=== PATIENT | female | born 2000 | race African-American/Black ===

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

== ENCOUNTER → 2020-01-21 | Outpatient (CLI) | payer MEDICAID ==
--- NOTE | 2020-01-21 12:32 | Diagnostic Imaging Report ---
INDICATION: Palpable lump right breast. Sonographic interrogation of the area of palpable lump right breast was performed. This corresponds to the 11:00 location. No sonographic abnormality is seen. No solid or cystic mass is detected. IMPRESSION: BI-RADS Category 1 No sonographic abnormality is detected. Continued close clinical and self breast exam is recommended to confirm stability of the palpable abnormality. ACR BI-RADS Category 1: Negative. Result letter will be mailed to the patient. Note: At least 10% of breast cancer is not imaged by mammography. Dictated by: Dictated on workstation # [id number]
== END ==
LOC: RAD 10:30
PROVIDERS: ATTEND Family Medicine
DX: N63.10 Unspecified lump in the right breast, unspecified quadrant (principal)
CPT/HCPCS: 76641

== ENCOUNTER 2020-05-22 21:21 | Emergency (ER) | payer MEDICAID ==
[~2020-05-22] VITALS: Ht 152 cm; Wt 41.7 kg
[2020-05-22] MEDS ORDERED: ONDANSETRON 4 MG/2 ML (SDV) Z0FRAN IVP ONE (21:45)
[2020-05-22] MEDS ORDERED: KETOROLAC 30 MG/ML VIAL IVP ONE (21:45)
[2020-05-22] MEDS ORDERED: NS IV 500 ML 500 ML IV ONE (21:45)
--- NOTE | 2020-05-22 21:45 | ED GU-Female ---
General Stated Complaint: MENSTRUAL CRAMPS Source: patient Exam Limitations: no limitations History of Present Illness Date Seen by Provider: May 22, 2020 Time Seen by Provider: 21:30 Initial Comments Patient and her mother are present to the ER by private conveyance from home with chief complaint of intractable pain for the past several years in her right lower quadrant abdomen associated with her period and cysts. She think she has another cyst. She had a surgery by Dr. Garcia to have a cyst removed. She is having some nausea and rates her pain is 11 out of 10. No fevers dysuria diarrhea or constipation. She had a bowel movement today which was normal. She uses Tylenol ibuprofen and heat without relief of her pain. She went to urgent care today and had a urinalysis done which was unremarkable. No mention of endometriosis. She also has noticed increased bruising across to her body that spontaneous. She has a history of factor V Leiden and her last period was 4 days ago started out as spotting and that she had very heavy bleeding with blood clots for about 2 days and then it was over. She is very regular with her menses. She is out of her nausea medicine. She has had an umbilical hernia repair, ovarian cyst on the right side and cholecystectomy. Allergies and Home Medications Allergies Coded Allergies: No Known Drug Allergies (Unverified , 06/12/18) Home Medications Hydrocodone/Acetaminophen 1 Each Tablet, 1 TAB PO Q4H PRN for PAIN-MODERATE (5- 7) Prescribed by: KEVIN GARCIA on 07/26/19 0935 Ibuprofen 600 Mg Tablet, 600 MG PO Q6H Prescribed by: KEVIN GARCIA on 07/26/19 0935 Ondansetron 4 Mg Tab.rapdis, 4 MG PO TID PRN for NAUSEA-1ST LINE Prescribed by: QUINCY CONLEY on 07/26/19 1304 Patient Home Medication List Home Medication List Reviewed: Yes Review of Systems Review of Systems Constitutional: No chills, No fever EENTM: No ear discharge, No ear pain Respiratory: No cough, No short of breath Cardiovascular: No chest pain, No edema Gastrointestinal: RLQ, abdominal pain; No constipation, No diarrhea; nausea; No vomiting Musculoskeletal: No back pain, No joint pain All Other Systemes Reviewed Negative Unless Noted: Yes Past Qchzkol-Gtutkk-Hrglhc Hx Patient Social History Alcohol Use: Denies Use Smoking Status: Former Smoker Type Used: Electronic/Vapor 2nd Hand Smoke Exposure: No Recent Hopitalizations: No Immunizations Up To Date Tetanus Booster (TDap): Less than 5yrs PED Vaccines UTD: No Date of Influenza Vaccine: Nov 10, 2017 Seasonal Allergies Seasonal Allergies: Yes Past Medical History Surgeries: Yes (Umbilical hernia repair. ) Adenoidectomy, Gallbladder, Tonsillectomy Respiratory: Yes Asthma Currently Using CPAP: No Currently Using BIPAP: No Cardiac: No Neurological: No Reproductive Disorders: No Female Reproductive Disorders: Denies Sexually Transmitted Disease: No HIV/AIDS: No Genitourinary: No Gastrointestinal: No Abdominal Hernia, Gall Bladder Disease Musculoskeletal: No Endocrine: No HEENT: No Cancer: No Psychosocial: Yes Anxiety, PTSD, Bipolar, Depression Integumentary: No 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) Adverse Reaction/Blood Tranf: No Family Medical History BIPOLAR 19 FATHER Diabetes mellitus 19 FATHER FH: factor V Leiden mutation M GRANDMOTHER FH: heart disease GRANDPARENT FH: hyperlipidemia 19 MOTHER GRANDPARENT Factor V deficiency 19 MOTHER G8 BROTHER G8 BROTHER G8 BROTHER G8 SISTER G8 SISTER Hypertension 19 FATHER GRANDPARENT IBS 19 FATHER Seizure disorder 19 FATHER Tuberculosis 19 FATHER Physical Exam Vital Signs Capillary Refill : Height, Weight, BMI Height: 5'0" Weight: 105lbs. 0.0oz. 47.348303fe; 20.00 BMI Method:Stated General Appearance: WD/WN, mild distress HEENT: PERRL/EOMI, pharynx normal Neck: full range of motion, normal inspection Cardiovascular: normal peripheral pulses, regular rate, rhythm Respiratory: no respiratory distress, no accessory muscle use Gastrointestinal: normal bowel sounds, soft, no organomegaly, tenderness (Right lower quadrant mild tenderness without Rovsing sign, mesenteric signs or rebound tenderness over McBurney's point) Extremities: non-tender, normal inspection Neurologic/Psychiatric: alert, normal mood/affect, oriented x 3 Progress/Results/Core Measures Suspected Sepsis SIRS Temperature: Pulse: Respiratory Rate: Laboratory Tests 05/22/20 21:49: White Blood Count 8.4 Blood Pressure / Mean: Laboratory Tests 05/22/20 21:49: Creatinine 0.78, Platelet Count 302, Total Bilirubin 0.3 Results/Orders Lab Results Laboratory Tests Test 05/22/20 21:41 4/12/21 21:49 Range/Units Urine Color YELLOW Urine Clarity SL CLOUDY Urine pH 6.5 5-9 Urine Specific [place] 1.020 1.016-1.022 Urine Protein NEGATIVE NEGATIVE Urine Glucose (UA) NEGATIVE NEGATIVE Urine Ketones NEGATIVE NEGATIVE Urine Nitrite NEGATIVE NEGATIVE Urine Bilirubin NEGATIVE NEGATIVE Urine Urobilinogen 0.2 < = 1.0 MG/DL Urine Leukocyte Esterase NEGATIVE NEGATIVE Urine RBC (Auto) 2+ H NEGATIVE Urine RBC RARE /HPF Urine WBC RARE /HPF Urine Squamous Epithelial Cells 10-25 H /HPF Urine Crystals NONE /LPF Urine Bacteria FEW H /HPF Urine Casts NONE /LPF Urine Mucus NEGATIVE /LPF Urine Culture Indicated NO White Blood Count 8.4 4.3-11.0 10^3/uL Red Blood Count 4.23 3.80-5.11 10^6/uL Hemoglobin 12.0 11.5-16.0 g/dL Hematocrit 37 35-52 % Mean Corpuscular Volume 86 80-99 fL Mean Corpuscular Hemoglobin 28 25-34 pg Mean Corpuscular Hemoglobin Concent 33 32-36 g/dL Red Cell Distribution Width 14.8 H 10.0-14.5 % Platelet Count 302 130-400 10^3/uL Mean Platelet Volume 8.7 L 9.0-12.2 fL Immature Granulocyte % (Auto) 0 % Neutrophils (%) (Auto) 59 42-75 % Lymphocytes (%) (Auto) 30 12-44 % Monocytes (%) (Auto) 9 0-12 % Eosinophils (%) (Auto) 1 0-10 % Basophils (%) (Auto) 1 0-10 % Neutrophils # (Auto) 5.0 1.8-7.8 10^3/uL Lymphocytes # (Auto) 2.5 1.0-4.0 10^3/uL Monocytes # (Auto) 0.8 0.0-1.0 10^3/uL Eosinophils # (Auto) 0.1 0.0-0.3 10^3/uL Basophils # (Auto) 0.0 0.0-0.1 10^3/uL Immature Granulocyte # (Auto) 0.0 0.0-0.1 10^3/uL Sodium Level 140 135-145 MMOL/L Potassium Level 3.9 3.6-5.0 MMOL/L Chloride Level 106 98-107 MMOL/L Carbon Dioxide Level 22 21-32 MMOL/L Anion Gap 12 5-14 MMOL/L Blood Urea Nitrogen 11 7-18 MG/DL Creatinine 0.78 0.60-1.30 MG/DL Estimat Glomerular Filtration Rate > 60 BUN/Creatinine Ratio 14 Glucose Level 79 70-105 MG/DL Calcium Level 8.8 8.5-10.1 MG/DL Corrected Calcium 8.7 8.5-10.1 MG/DL Total Bilirubin 0.3 0.1-1.0 MG/DL Aspartate Amino Transf (AST/SGOT) 14 5-34 U/L Alanine Aminotransferase (ALT/SGPT) 12 0-55 U/L Alkaline Phosphatase 62 40-136 U/L C-Reactive Protein High Sensitivity 0.03 0.00-0.50 MG/DL Total Protein 6.7 6.4-8.2 GM/DL Albumin 4.1 3.2-4.5 GM/DL My Orders Orders - KYM LAWRENCE Ua Culture If Indicated (05/22/20 21:40) Urine Bedside (05/22/20 21:40) Cbc With Automated Diff (05/22/20 21:40) Comprehensive Metabolic Panel (05/22/20 21:40) Hs C Reactive Protein (05/22/20 21:40) Ketorolac Injection (Toradol Injection) (05/22/20 21:45) Ondansetron Injection (Zofran Injectio (05/22/20 21:45) Ed Iv/Invasive Line Start (05/22/20 21:40) Ns Iv 500 Ml (Sodium Chloride 0.9%) (05/22/20 21:45) Rx-Hydrocodone/Apap 5-325 Mg (Rx-Vicodin (05/22/20 23:30) Medications Given in ED Current Medications Medications Dose Ordered Sig/Arya Route Start Time Stop Time Status Last Admin Dose Admin Ketorolac Tromethamine 30 mg ONCE ONCE IVP 05/22/20 21:45 05/22/20 21:46 DC 05/22/20 21:54 30 MG Ondansetron HCl 8 mg ONCE ONCE IVP 05/22/20 21:45 05/22/20 21:46 DC 05/22/20 21:54 8 MG Sodium Chloride 500 ml @ 0 mls/hr Q0M ONCE IV 05/22/20 21:45 4/12/21 21:46 DC 05/22/20 21:54 1,000 MLS/HR Vital Signs/I&O Capillary Refill : Progress Note #1: Time: 21:45 Progress Note Toradol, Zofran, fluids and will get some urine, blood and CRP. We will reexamine her after. Progress Note #2: Time: 23:17 Progress Note The patient's nausea is better however she says her pain is still 11 out of 10. We have instructed her this is most likely gynecologic her labs are normal. We discussed imaging and she declined. We will provide her with some hydrocodone and instructions to call Dr. Garcia tomorrow to further discuss this. If she is not finding an answer to her pain and we have suggested she should talk to her primary care doctor about pain processing disorder such as fibromyalgia etc. Departure Impression Primary Impression: Right lower quadrant abdominal pain Disposition: 01 HOME, SELF-CARE Condition: Stable Departure-Patient Inst. Decision time for Depature: 23:21 Referrals: KEVIN GARCIA CHAD C MD (PCP/Family) Primary Care Physician Patient Instructions: Pelvic Pain (DC) Add. Discharge Instructions: I suspect you are probably having pain from your ovarian cysts. Hydrocodone 1 tablet every 6 hours as necessary for severe pain. Ibuprofen 800 mg every 8 hours as necessary for pain. Tylenol 600 mg or 8 hours as necessary for pain. Ondansetron every 6 hours as necessary for nausea and/or vomiting. Follow Dr. Garcia by calling for an appointment in the morning. Scripts Ondansetron (Ondansetron Odt) 4 Mg Tab.rapdis 4 MG PO Q6H PRN for NAUSEA/VOMITING, #8 TAB 0 Refills Prov: KYM LAWRENCE 05/22/20 Hydrocodone/Acetaminophen (Hydrocodone-Acetamin 5-325 mg) 1 Each Tablet 1 TAB PO Q4H PRN for PAIN-MODERATE (5-7), #10 TAB 0 Refills Prov: KYM LAWRENCE 05/22/20 Copy Copies To 1: KEVIN GARCIA TITUS J May 22, 2020 21:45
[2020-05-22 21:49] LABS: BILIRUBIN,URINE NEGATIVE (NEGATIVE); CLARITY,URINE SL CLOUDY; COLOR,URINE YELLOW; GLUCOSE, URINE (UA) NEGATIVE (NEGATIVE); KETONES,URINE NEGATIVE (NEGATIVE); LEUKOCYTE ESTERASE ,URINE NEGATIVE (NEGATIVE); NITRITE,URINE NEGATIVE (NEGATIVE); PH,URINE 6.5 (5-9); PROTEIN,URINE NEGATIVE (NEGATIVE)
[2020-05-22 21:55] LABS: BASOPHILS % (AUTO) 1 % (0-10); EOSINOPHILS # (AUTO) 0.1 10^3/uL (0.0-0.3); EOSINOPHILS % (AUTO) 1 % (0-10); HEMATOCRIT 37 % (35-52); LYMPHOCYTES # (AUTO) 2.5 10^3/uL (1.0-4.0); LYMPHOCYTES % (AUTO) 30 % (12-44); MEAN CORPUSCULAR HEMOGLOBIN 28 pg (25-34); MEAN CORPUSCULAR HGB CONC 33 g/dL (32-36); MEAN CORPUSCULAR VOLUME 86 fL (80-99); MEAN PLATELET VOLUME 8.7 fL (9.0-12.2); MONOCYTES # (AUTO) 0.8 10^3/uL (0.0-1.0); MONOCYTES % (AUTO) 9 % (0-12); NEUTROPHILS % (AUTO) 59 % (42-75); PLATELET COUNT 302 10^3/uL (130-400); WHITE BLOOD COUNT 8.4 10^3/uL (4.3-11.0)
[2020-05-22 21:56] LABS: BACTERIA,URINE FEW /HPF; RBC,URINE RARE /HPF; WBC,URINE RARE /HPF
[2020-05-22 22:06] LABS: ALBUMIN 4.1 GM/DL (3.2-4.5)
[2020-05-22 22:07] LABS: CHLORIDE 106 MMOL/L (98-107); POTASSIUM 3.9 MMOL/L (3.6-5.0); SODIUM 140 MMOL/L (135-145)
[2020-05-22 22:08] LABS: CALCIUM 8.8 MG/DL (8.5-10.1)
[2020-05-22 22:09] LABS: GLUCOSE 79 MG/DL (70-105); TOTAL PROTEIN 6.7 GM/DL (6.4-8.2)
[2020-05-22 22:10] LABS: CARBON DIOXIDE 22 MMOL/L (21-32)
[2020-05-22 22:11] LABS: BILIRUBIN,TOTAL 0.3 MG/DL (0.1-1.0)
[2020-05-22 22:12] LABS: ALKALINE PHOSPHATASE 62 U/L (40-136)
[2020-05-22 22:13] LABS: CREATININE SERUM 0.78 MG/DL (0.60-1.30); GFR ESTIMATED > 60
[2020-05-22 22:14] LABS: BUN/CREATININE RATIO 14
[2020-05-22 22:16] LABS: ALANINE AMINOTRANSFERASE 12 U/L (0-55)
[2020-05-22] MEDS ORDERED: RX-HYDROCODONE/APAP 5/325 MG #4 TAB PK PO ONE (23:11)
[2020-05-22] MEDS ORDERED: ACHD5005 PO (23:20)
[2020-05-22] MEDS ORDERED: ONDA4TAB11 PO (23:20)
[2020-05-22 23:25] VITALS: BP 110/80
[2020-05-22] MEDS ORDERED: RX-HYDROCODONE/APAP 5/325 MG #4 TAB PK PO PRN (23:30)
== END 2020-05-22 23:25 | disposition home or self-care (01) ==
LOC: EDUNIT# 21:21 → ER 21:24
DX: R10.31 Right lower quadrant pain (principal); Z87.891 Personal history of nicotine dependence; Z83.3 Family history of diabetes mellitus; Z82.49 Family history of ischemic heart disease and other diseases of the circulatory system
CPT/HCPCS: 36415; 80053; 81000; 84703; 85025; 86141; 96361; 96374; 96375

== ENCOUNTER → 2020-06-08 | Outpatient (CLI) | payer MEDICAID ==
--- NOTE | 2020-06-08 15:46 | Diagnostic Imaging Report ---
PROCEDURE: US non-OB pelvis comp/trans. INDICATION: Pelvic and perineal pain. TECHNIQUE: Multiple real time grayscale sonographic images were obtained of the pelvis 01/26/2019. CORRELATION STUDY: None. FINDINGS: UTERUS: 8.2 x 4.2 x 5.6 cm. The uterus appears unremarkable. ENDOMETRIUM: Approximately 8-12 mm. The endometrium appearing unremarkable. RIGHT OVARY: 3.2 x 1.8 x 3.4 cm Complex perhaps resolving hemorrhagic cyst of the right ovary is demonstrated, 1.1 x 1.3 x 0.9 cm. There is presence of blood flow to the right ovary. LEFT OVARY: 3.1 x 1.3 x 2.4 cm The left ovary has an unremarkable appearance. No concerning mass. Blood flow is present. Small amount of pelvic fluid. IMPRESSION: Complex right ovarian mass. May very well reflect resolving hemorrhagic cyst. Small amount of pelvic fluid, within physiologic range. Otherwise, unremarkable appearing pelvic ultrasound evaluation. Dictated by: Dictated on workstation # [id number]
== END ==
LOC: RAD 11:41
PROVIDERS: ATTEND Obstetrics & Gynecology
DX: N83.8 Other noninflammatory disorders of ovary, fallopian tube and broad ligament (principal)
CPT/HCPCS: 76830; 76856

== ENCOUNTER 2020-06-09 00:10 | Emergency (ER) | payer MEDICAID ==
[~2020-06-09] VITALS: Ht 152.4 cm; Wt 40.0 kg
[2020-06-09 00:54] LABS: BILIRUBIN,URINE NEGATIVE (NEGATIVE); CLARITY,URINE CLEAR; COLOR,URINE YELLOW; GLUCOSE, URINE (UA) NEGATIVE (NEGATIVE); KETONES,URINE NEGATIVE (NEGATIVE); LEUKOCYTE ESTERASE ,URINE NEGATIVE (NEGATIVE); NITRITE,URINE NEGATIVE (NEGATIVE); PROTEIN,URINE NEGATIVE (NEGATIVE)
[2020-06-09 01:29] LABS: BACTERIA,URINE NEGATIVE /HPF
[2020-06-09 01:48] LABS: AMPHETAMINE SCREEN, URINE NEGATIVE (NEGATIVE); BARBITURATE SCREEN URINE NEGATIVE (NEGATIVE); BENZODIAZEPINES SCREEN URINE NEGATIVE (NEGATIVE); CANNABINOID SCREEN, URINE POSITIVE (NEGATIVE); COCAINE SCREEN URINE NEGATIVE (NEGATIVE); METHADONE STAT NEGATIVE (NEGATIVE); METHAMPHETAMINE SCREEN URINE S NEGATIVE (NEGATIVE); OPIATE SCREEN URINE NEGATIVE (NEGATIVE); OXYCODONE STAT NEGATIVE (NEGATIVE); PROPOXYPHENE STAT NEGATIVE (NEGATIVE); TRICYCLIC ANTIDEPRESSANTS SCRE NEGATIVE (NEGATIVE)
--- NOTE | 2020-06-09 01:57 | ED Abdominal Pain ---
General Chief Complaint: Abdominal/GI Problems Stated Complaint: LOWER RT SIDE & BELLY BUTTON PAIN Nursing Triage Note: PRESENTS TO ROOM #5 VIA POV ACCOMPANIED BY MOTHER WITH C/O "HARD KNOT" ET PAIN TO BELLY BUTTON. STATES SHE NOTICED "HARD KNOT" TO BELLY BUTTON [employer]. STATES ON 06/08/20 SHE HAD AN OUTPATIENT ULTRASOUND OF HER R LOWER QUADRANT D/T X1 MONTH OF DICOMFORT. WHEN ASKED IF SHE IS EXPERIENCING NAUSEA PT STATES SHE HAS BEEN EXPERIENCING CONSTANT NAUSEA X1 MONTH. DENIES VOMITING OR DIARRHEA. STATES AT 2330 SHE TOOK 7.5/325MG PERCOCET. Sepsis Screen: No Definite Risk Source of Information: Patient History of Present Illness Date Seen by Provider: Jun 09, 2020 Time Seen by Provider: 00:30 Initial Comments PT ARRIVES VIA POV FROM HOME WITH MOTHER PT STATES IMMEDIATELY PRIOR TO ARRIVAL, SHE NOTICED A "KNOT" IN HER BELLY BUTTON THAT IS VERY PAINFUL. HAS NO IDEA HOW LONG THE "KNOT" HAS BEEN THERE--STATES "I JUST KNOW I'M IN PAIN" INITIALLY STATED SHE DID NOT TAKE ANYTHING FOR PAIN, THEN STATES SHE TOOK A PERCOCET 7.5/325 AT 2330 TONIGHT--STATES "SHE FORGOT SHE TOOK IT" --CLAIMS IT DIDN'T HELP PT HAD NORMAL BM THIS AM--NO BLACK/BLOODY/TARRY STOOLS NO VOMITING PT ATE TACOS AND CEREAL JUST PRIOR TO ARRIVAL. NO URINARY SYMPTOMS AND VOIDING A NORMAL AMOUNT NO FEVER/SWEATS/CHILLS LMP 05/19/20--NORMAL TIME, BUT VERY LIGHT ( PER OLD CHART, SHE HAD REPORTED AT THAT TIME THAT IT WAS VERY HEAVY BLEEDING WITH BLOOD CLOTS X 2 DAYS) NO CONTROL PT HAD CHOLECYSTECTOMY AND UMBILICAL HERNIA REPAIR 2 YEARS AGO SHE HAS ALSO HAD RIGHT OVARIAN CYST REMOVED IN THE PAST PT HAS CHRONIC RLQ PAIN FOR YEARS, AND STATES IT HAS BEEN GOING ON FOR A MONTH ALSO HAS BEEN HAVING NAUSEA FOR THE LAST MONTH PT HAS HAD MULTIPLE WORK UP'S AND SEEN MULTIPLE PROVIDERS FOR THIS PROBLEM, AND HAS BEEN DX WITH OVARIAN CYSTS IN THE PAST THESE SYMPTOMS TEND TO CORRELATE WITH MENSTRUAL CYCLES THOSE SYMPTOMS ARE NO DIFFERENT TONIGHT AND ARE NOT HER MAIN COMPLAINT TONIGHT PT WAS SEEN HERE 05/22/20 FOR RLQ PAIN AND NAUSEA, PT HAD LAB AT THAT TIME, WHICH WAS UNREMARKABLE, AND SHE DECLINED ANY IMAGING AT THAT TIME. PT WAS GIVEN RX'S FOR ZOFRAN AND HYDROCODONE AT THAT TIME PT HAS SEEN DR. GARCIA SINCE THAT VISIT, AND HAD OUTPATIENT ULTRASOUND AND LAB DONE TODAY--RESULTS ARE UNKNOWN TO PT. PT DOES NOT HAVE A FOLLOW UP VISIT WITH ANYONE AT THIS TIME. PCP: DR. Ella COUGHLIN [employer] MANAGER: DR. GARCIA Allergies and Home Medications Allergies Coded Allergies: No Known Drug Allergies (Unverified , 06/12/18) Home Medications Hydrocodone/Acetaminophen 1 Each Tablet, 1 TAB PO Q4H PRN for PAIN-MODERATE (5- 7) Prescribed by: KEVIN GARCIA on 07/26/19 0935 Hydrocodone/Acetaminophen 1 Each Tablet, 1 TAB PO Q4H PRN for PAIN-MODERATE (5- 7) Prescribed by: KYM LAWRENCE on 05/22/20 2321 Ibuprofen 600 Mg Tablet, 600 MG PO Q6H Prescribed by: KEVIN GARCIA on 07/26/19 0935 Ondansetron 4 Mg Tab.rapdis, 4 MG PO TID PRN for NAUSEA-1ST LINE Prescribed by: QUINCY CONLEY on 07/26/19 1304 Ondansetron 4 Mg Tab.rapdis, 4 MG PO Q6H PRN for NAUSEA/VOMITING Prescribed by: KYM LAWRENCE on 05/22/20 2320 Patient Home Medication List Home Medication List Reviewed: Yes Review of Systems Review of Systems Constitutional: no symptoms reported Respiratory: No Symptoms Reported Cardiovascular: No Symptoms Reported Gastrointestinal: See HPI Genitourinary: No Symptoms Reported Musculoskeletal: no symptoms reported (BUT HAS REPORTED CHRONIC BODY ACHES FOR YEARS) Skin: no symptoms reported Psychiatric/Neurological: No Symptoms Reported Endocrine: No Symptoms Reported Hematologic/Lymphatic: No Symptoms Reported Past [id number] Hx Past Med/Social Hx: Reviewed and Corrections made Patient Social History Alcohol Use: Denies Use Smoking Status: Current Everyday Smoker Type Used: Electronic/Vapor 2nd Hand Smoke Exposure: No Recent Infectious Disease Expo: No Recent Hopitalizations: No Immunizations Up To Date Tetanus Booster (TDap): Less than 5yrs PED Vaccines UTD: No Date of Influenza Vaccine: Nov 10, 2017 Seasonal Allergies Seasonal Allergies: Yes Past Medical History Surgeries: Yes (UMBILICAL HERNIA REPAIR WITH CHOLECYSTECTOMY; RIGHT OVARIAN CYST REMOVED) Adenoidectomy, Gallbladder, Tonsillectomy Respiratory: Yes Asthma Currently Using CPAP: No Currently Using BIPAP: No Cardiac: No Neurological: No Reproductive Disorders: Yes (CHRONIC PELVIC/RLQ PAIN ) Female Reproductive Disorders: Denies, Ovarian Cyst Sexually Transmitted Disease: No HIV/AIDS: No Genitourinary: No Gastrointestinal: Yes (CHRONIC PELVIC/RLQ PAIN; CHOLECYSTECTOMY W/ UMBILICAL HERNIA REPAIR) Abdominal Hernia, Gall Bladder Disease Musculoskeletal: No Endocrine: No HEENT: No Cancer: No Psychosocial: Yes Eating Disorder, Anxiety, PTSD, Bipolar, Depression Integumentary: Yes (TATTOOS) 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) Adverse Reaction/Blood Tranf: No Family Medical History BIPOLAR 19 FATHER Diabetes mellitus 19 FATHER FH: factor V Leiden mutation M GRANDMOTHER FH: heart disease GRANDPARENT FH: hyperlipidemia 19 MOTHER GRANDPARENT Factor V deficiency 19 MOTHER G8 BROTHER G8 BROTHER G8 BROTHER G8 SISTER G8 SISTER Hypertension 19 FATHER GRANDPARENT IBS 19 FATHER Seizure disorder 19 FATHER Tuberculosis 19 FATHER Physical Exam Vital Signs Vital Signs - First Documented 06/09/20 00:30 Temp 36.6 Pulse 67 Resp 18 B/P (MAP) 108/58 (75) Pulse Ox 100 O2 Delivery Room Air Capillary Refill : Less Than 3 Seconds Height/Weight/BMI Height: 5'0" Weight: 105lbs. 0.0oz. 47.889444em; 17.00 BMI Method:Stated General Appearance: WD/WN, no apparent distress, thin, other (WALKS UPRIGHT AND MOVES QUICKLY WITHOUT ANY DIFFICULTY. DOES NOT APPEAR TO BE IN ANY DISCOMFORT OR DISTRESS. TEXTING/PLAYING ON PHONE THROUGHTOUT ENTIRE ER STAY) HEENT: PERRL/EOMI Respiratory: normal breath sounds, no respiratory distress, no accessory muscle use Cardiovascular: regular rate, rhythm, no murmur Gastrointestinal: normal bowel sounds, soft, no organomegaly, no pulsatile mass; No hernia, No mass; other (UMBILICUS WITH NORMAL APPEARANCE AND NO APPARENT TENDERNESS TO DEEP PALPATION) Extremities: normal inspection, normal capillary refill Back: no CVA tenderness Neurologic/Psychiatric: distribution a class lineman II-XII nml as tested, no motor/sensory deficits, alert, normal mood/affect, oriented x 3 Skin: normal color (PT IS DARK-SKINNED), warm/dry; No rash; tattoos/piercings (MULTIPLE TATTOOS) Progress/Results/Core Measures Results/Orders Lab Results Laboratory Tests Test 06/09/20 00:50 Range/Units Urine Color YELLOW Urine Clarity CLEAR Urine pH 6.0 5-9 Urine Specific [place] 1.025 H 1.016-1.022 Urine Protein NEGATIVE NEGATIVE Urine Glucose (UA) NEGATIVE NEGATIVE Urine Ketones NEGATIVE NEGATIVE Urine Nitrite NEGATIVE NEGATIVE Urine Bilirubin NEGATIVE NEGATIVE Urine Urobilinogen 0.2 < = 1.0 MG/DL Urine Leukocyte Esterase NEGATIVE NEGATIVE Urine RBC (Auto) NEGATIVE NEGATIVE Urine RBC NONE /HPF Urine WBC NONE /HPF Urine Squamous Epithelial Cells 2-5 /HPF Urine Crystals NONE /LPF Urine Bacteria NEGATIVE /HPF Urine Casts NONE /LPF Urine Mucus SMALL H /LPF Urine Culture Indicated NO Urine Opiates Screen NEGATIVE NEGATIVE Urine Oxycodone Screen NEGATIVE NEGATIVE Urine Methadone Screen NEGATIVE NEGATIVE Urine Propoxyphene Screen NEGATIVE NEGATIVE Urine Barbiturates Screen NEGATIVE NEGATIVE Ur Tricyclic Antidepressants Screen NEGATIVE NEGATIVE Urine Phencyclidine Screen NEGATIVE NEGATIVE Urine Amphetamines Screen NEGATIVE NEGATIVE Urine Methamphetamines Screen NEGATIVE NEGATIVE Urine Benzodiazepines Screen NEGATIVE NEGATIVE Urine Cocaine Screen NEGATIVE NEGATIVE Urine Cannabinoids Screen POSITIVE H NEGATIVE My Orders Orders - MARIAM MENDIETA DO Urine Bedside (06/09/20 00:50) Ua Culture If Indicated (06/09/20 00:50) Ct Abd/Pelvis Wo(Kidney Stone) (06/09/20 00:59) Drug Screen Stat (Urine) (06/09/20 00:59) Vital Signs/I&O 06/09/20 06/09/20 00:30 02:02 Temp 36.6 36.6 Pulse 67 78 Resp 18 16 B/P (MAP) 108/58 (75) 113/66 (75) Pulse Ox 100 100 O2 Delivery Room Air Room Air Blood Pressure Mean: 75 Progress Progress Note : Progress Note UNEVENTFUL ER STAY PT PLAYING/TEXTING ON PHONE THROUGHOUT ER STAY Diagnostic Imaging Comments CT ABDOMEN/PELVIS--NO ACUTE PROCESS, PER [facility] VIA FAX AT 3525 Reviewed: Reviewed by Me Departure Impression Primary Impression: Umbilical pain Disposition: HOME, SELF-CARE Condition: Stable Departure-Patient Inst. Referrals: DEVIN COUGHLIN MD (PCP/Family) Primary Care Physician Patient Instructions: Abdominal Pain, Adult ED Add. Discharge Instructions: TYLENOL AND MOTRIN NEEDED FOR PAIN HEATING PAD TO ABDOMEN AT 20 MINUTE INTERVALS ACTIVITIES TOLERATED FOLLOW UP WITH DR. GARCIA IF SYMPTOMS PERSIST All discharge instructions reviewed with patient and/or family. Voiced understanding. MARIAM MENDIETA DO Jun 09, 2020 01:57
[2020-06-09 02:02] VITALS: BP 113/66
--- NOTE | 2020-06-09 07:31 | Diagnostic Imaging Report ---
PROCEDURE: CT urinary tract, rule out kidney stone. TECHNIQUE: Multiple contiguous axial images were obtained through the abdomen and pelvis without the use of intravenous contrast. Auto Exposure Controls were utilized during the CT exam to meet ALARA standards for radiation dose reduction. INDICATION: Flank pain. Palpable area of concern in the periumbilical region. Nausea. COMPARISON: 07/16/2019 FINDINGS: Included portions of the lung bases are clear. CT ABDOMEN: Normal appendix cannot be adequately identified, but there is no pericecal inflammation. Small bowel loops are nondistended. No renal calculi are seen on either side. Ureters cannot be followed in their entirety, but no calculi are seen along the expected course of the ureters. Additionally, there is no hydroureteronephrosis or other evidence of obstruction. No focal renal lesions are seen on this noncontrast study. The spleen, pancreas, adrenal glands, and liver have an unremarkable noncontrast CT appearance. No abnormal mesenteric or retroperitoneal adenopathy is seen. There is no free air or loculated air-fluid collection. Note is made of trace free fluid within the lower pelvis. CT pelvis: Urinary bladder is unopacified. No calculi are seen within the urinary bladder. There is trace free fluid. No loculated fluid collection or free air seen. Right ovarian cyst measures 2.1 x 2.7 cm. No abnormal adenopathy is seen. Osseous structures show no acute abnormalities. IMPRESSION: 1. Trace free fluid within the pelvis, which may be physiologic. 2. Right ovarian cyst. 3. No renal or ureteral calculi nor evidence of obstruction on either side. Dictated by: Dictated on workstation # [id number]
== END 2020-06-09 02:03 | disposition home or self-care (01) ==
LOC: EDUNIT# 00:10 → ER 00:13
DX: R10.33 Periumbilical pain (principal); J45.909 Unspecified asthma, uncomplicated; F17.290 Nicotine dependence, other tobacco product, uncomplicated
CPT/HCPCS: 74176; 80306; 81000; 84703

== ENCOUNTER 2020-07-28 13:31 | Emergency (ER) | payer MEDICAID ==
[~2020-07-28] VITALS: Ht 160 cm; Wt 54.5 kg
--- NOTE | 2020-07-28 14:20 | ED General ---
General Chief Complaint: General Problems/Pain Stated Complaint: CRAMPS, DISCHARGE, URINATING BLOOD Nursing Triage Note: AMB TO ROOM WITH C/O LOW ABD CRAMPING AND DISCHARGE FOR 3 DAYS. HAS NOT TRIED ANY OTC PAIN MEDS. Nursing Sepsis Screen: No Definite Risk Source of Information: Patient Exam Limitations: No Limitations (APARNA LUX MED STUDENT) History of Present Illness Date Seen by Provider: Jul 28, 2020 Time Seen by Provider: 14:14 Initial Comments Ms. Clyaton is a 20 yo female that presents today for pelvic cramping, blood in urine, and vaginal discharge. She has a longstanding history of ovarian cysts and recent ghonnorheal/chlamydial infection. She states that 2 days ago she fell over from a sudden onset lower L abdominal cramping that she described as 12/10 stabbing pain. Came on suddenly with no known trigger. She states that the pain has gotten a bit better today but she is still concerned. She also had episodes of dark bloody urine that started yesterday that resolved by this morning. She states that she also had pain with the urination. She also complains of an odorous, nonbloody vaginal discharge. She was recently treated for STI as stated above with course of ABX, abour 2-3 months ago. She recently started sleeping with a new partner about a week ago. She is currently trying to get and she does not use barrier protection. She is sexually active with one partner. She complains of longstanding nausea of about 5 months and a weight loss of about 60 pounds. (APARNA LUX MED STUDENT) Allergies and Home Medications Allergies Coded Allergies: No Known Drug Allergies (Unverified , 06/12/18) Home Medications Hydrocodone/Acetaminophen 1 Each Tablet, 1 TAB PO Q4H PRN for PAIN-MODERATE (5- 7) Prescribed by: KEVIN GARCIA on 07/26/19 0935 Hydrocodone/Acetaminophen 1 Each Tablet, 1 TAB PO Q4H PRN for PAIN-MODERATE (5- 7) Prescribed by: KYM LAWRENCE on 05/22/20 2321 Ibuprofen 600 Mg Tablet, 600 MG PO Q6H Prescribed by: KEVIN GARCIA on 07/26/19 0935 Metronidazole 500 Mg Tablet, 500 MG PO BID Prescribed by: ELVI LOONEY on 07/28/20 1857 Ondansetron 4 Mg Tab.rapdis, 4 MG PO TID PRN for NAUSEA-1ST LINE Prescribed by: QUINCY CONLEY on 07/26/19 1304 Ondansetron 4 Mg Tab.rapdis, 4 MG PO Q6H PRN for NAUSEA/VOMITING Prescribed by: KYM LAWRENCE on 05/22/20 2320 Patient Home Medication List Home Medication List Reviewed: Yes (APARNA LUX Trumpet Search STUDENT) Review of Systems Review of Systems Constitutional: No chills, No fever; weight loss (60 LBS ) EENTM: No hearing loss, No vision loss Respiratory: short of breath (Described as chronic, sometimes hard to breathe in ) Cardiovascular: No chest pain, No edema, No palpitations Gastrointestinal: abdominal pain (Lower pelvic area bilaterally, worse on L side); No constipation, No diarrhea; loss of appetite (Chronic); No melena; nausea (Chronic, 5mo); No vomiting Genitourinary: discharge, dysuria, hematuria Musculoskeletal: No back pain, No joint pain Skin: No rash Psychiatric/Neurological: Depressed (Chronic); Denies Headache (APARNA LUX STUDENT) Past Zsutjqw-Swrpti-Egwrsd Hx Patient Social History Alcohol Use: Denies Use Type Used: Electronic/Vapor 2nd Hand Smoke Exposure: No Recent Infectious Disease Expo: No Recent Hopitalizations: No (APARNA LUX STUDENT) Immunizations Up To Date Tetanus Booster (TDap): Less than 5yrs PED Vaccines UTD: No Date of Influenza Vaccine: Nov 10, 2017 (APARNA LUX Trumpet Search STUDENT) Seasonal Allergies Seasonal Allergies: Yes (APARNA LUX STUDENT) Past Medical History Surgeries: Yes (UMBILICAL HERNIA REPAIR WITH CHOLECYSTECTOMY; RIGHT OVARIAN CYST REMOVED) Adenoidectomy, Gallbladder, Tonsillectomy Respiratory: Yes Asthma Currently Using CPAP: No Currently Using BIPAP: No Cardiac: No Neurological: No Last Menstrual Period: Jul 12, 2020 Reproductive Disorders: Yes (CHRONIC PELVIC/RLQ PAIN ) Female Reproductive Disorders: Denies, Ovarian Cyst Sexually Transmitted Disease: No HIV/AIDS: No Genitourinary: No Gastrointestinal: Yes (CHRONIC PELVIC/RLQ PAIN; CHOLECYSTECTOMY W/ UMBILICAL HERNIA REPAIR) Abdominal Hernia, Gall Bladder Disease Musculoskeletal: No Endocrine: No HEENT: No Cancer: No Psychosocial: Yes Eating Disorder, Anxiety, PTSD, Bipolar, Depression Integumentary: Yes (TATTOOS) 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) Adverse Reaction/Blood Tranf: No (APARNA LUX STUDENT) Family Medical History BIPOLAR 19 FATHER Diabetes mellitus 19 FATHER FH: factor V Leiden mutation M GRANDMOTHER FH: heart disease GRANDPARENT FH: hyperlipidemia 19 MOTHER GRANDPARENT Factor V deficiency 19 MOTHER G8 BROTHER G8 BROTHER G8 BROTHER G8 SISTER G8 SISTER Hypertension 19 FATHER GRANDPARENT IBS 19 FATHER Seizure disorder 19 FATHER Tuberculosis 19 FATHER Physical Exam Vital Signs Vital Signs - First Documented 07/28/20 13:56 Temp 36.8 Pulse 70 Resp 18 B/P (MAP) 105/56 (72) Pulse Ox 100 O2 Delivery Room Air (ELVI WALLER MD) Vital Signs Capillary Refill : Less Than 3 Seconds (APARNA LUX STUDENT) Height, Weight, BMI Height: 5'0" Weight: 105lbs. 0.0oz. [id number]; 21.00 BMI Method:Stated General Appearance: No Apparent Distress, WD/WN, Thin Respiratory: Chest Non Tender, Lungs Clear, Normal Breath Sounds, No Accessory Muscle Use, No Respiratory Distress Cardiovascular: Regular Rate, Rhythm, No Edema, No Murmur, Normal Peripheral Pulses Gastrointestinal: Normal Bowel Sounds, No Organomegaly, No Pulsatile Mass, Soft, Other (Tenderness to palpation in lower abdomen bilaterally, worse on L) Genital/Rectal: Other (Cervical motion tenderness present, physiologic discharge noted) Back: No CVA Tenderness Extremity: Non Tender, No Calf Tenderness, No Pedal Edema Neurologic/Psychiatric: Alert, Oriented x3, Normal Mood/Affect Skin: Normal Color, Warm/Dry (APARNA LUX MED STUDENT) HEENT: Normal ENT Inspection (ELVI WALLER MD) Progress/Results/Core Measures Suspected Sepsis Recent Fever Within 48 Hours: No Infection Criteria Present: None New/Unexplained Altered Menta: No Sepsis Screen: No Definite Risk SIRS Temperature: Pulse: 70 Respiratory Rate: 18 Laboratory Tests 07/28/20 14:44: White Blood Count 6.2 Blood Pressure 105 /56 Mean: 72 Laboratory Tests 07/28/20 14:44: Creatinine 0.78, Platelet Count 303, Total Bilirubin 0.5 (APARNA ULX MED STUDENT) Results/Orders Lab Results Laboratory Tests Test 07/28/20 14:16 07/28/20 14:22 07/28/20 14:44 Range/Units Urine Color YELLOW Urine Clarity SL CLOUDY Urine pH 6.0 5-9 Urine Specific [place] 1.025 H 1.016-1.022 Urine Protein NEGATIVE NEGATIVE Urine Glucose (UA) NEGATIVE NEGATIVE Urine Ketones 1+ H NEGATIVE Urine Nitrite NEGATIVE NEGATIVE Urine Bilirubin NEGATIVE NEGATIVE Urine Urobilinogen 0.2 < = 1.0 MG/DL Urine Leukocyte Esterase TRACE H NEGATIVE Urine RBC (Auto) TRACE-I NEGATIVE Urine RBC 2-5 H /HPF Urine WBC 2-5 /HPF Urine Squamous Epithelial Cells 10-25 H /HPF Urine Crystals PRESENT H /LPF Urine Amorphous Sediment FEW JERONIMO URATES H /LPF Urine Bacteria MODERATE H /HPF Urine Casts NONE /LPF Urine Mucus NEGATIVE /LPF Urine Culture Indicated YES White Blood Count 6.2 4.3-11.0 10^3/uL Red Blood Count 4.44 3.80-5.11 10^6/uL Hemoglobin 12.9 11.5-16.0 g/dL Hematocrit 38 35-52 % Mean Corpuscular Volume 86 80-99 fL Mean Corpuscular Hemoglobin 29 25-34 pg Mean Corpuscular Hemoglobin Concent 34 32-36 g/dL Red Cell Distribution Width 14.0 10.0-14.5 % Platelet Count 303 130-400 10^3/uL Mean Platelet Volume 9.5 9.0-12.2 fL Immature Granulocyte % (Auto) 0 % Neutrophils (%) (Auto) 60 42-75 % Lymphocytes (%) (Auto) 31 12-44 % Monocytes (%) (Auto) 7 0-12 % Eosinophils (%) (Auto) 1 0-10 % Basophils (%) (Auto) 1 0-10 % Neutrophils # (Auto) 3.7 1.8-7.8 10^3/uL Lymphocytes # (Auto) 1.9 1.0-4.0 10^3/uL Monocytes # (Auto) 0.5 0.0-1.0 10^3/uL Eosinophils # (Auto) 0.1 0.0-0.3 10^3/uL Basophils # (Auto) 0.0 0.0-0.1 10^3/uL Immature Granulocyte # (Auto) 0.0 0.0-0.1 10^3/uL Sodium Level 141 135-145 MMOL/L Potassium Level 3.9 3.6-5.0 MMOL/L Chloride Level 108 H 98-107 MMOL/L Carbon Dioxide Level 24 21-32 MMOL/L Anion Gap 9 5-14 MMOL/L Blood Urea Nitrogen 12 7-18 MG/DL Creatinine 0.78 0.60-1.30 MG/DL Estimat Glomerular Filtration Rate > 60 BUN/Creatinine Ratio 15 Glucose Level 76 70-105 MG/DL Calcium Level 9.4 8.5-10.1 MG/DL Corrected Calcium 9.2 8.5-10.1 MG/DL Total Bilirubin 0.5 0.1-1.0 MG/DL Aspartate Amino Transf (AST/SGOT) 12 5-34 U/L Alanine Aminotransferase (ALT/SGPT) 9 0-55 U/L Alkaline Phosphatase 67 40-136 U/L Total Protein 7.1 6.4-8.2 GM/DL Albumin 4.3 3.2-4.5 GM/DL TSH [place] Testing 0.81 0.35-4.94 UIU/ML Serum Test, Qualitative NEGATIVE NEGATIVE (ELVI WALLER MD) Micro Results Microbiology 07/28/20 Genital Culture, Resulted Pending 07/28/20 Wet Prep - Final, Resulted (ELVI WALLER MD) My Orders Orders - ELVI WALLER MD Ua Culture If Indicated (07/28/20 14:00) Cbc With Automated Diff (07/28/20 14:23) Comprehensive Metabolic Panel (07/28/20 14:23) Hcg,Qualitative Serum (07/28/20 14:23) Thyroid Analyzer (07/28/20 14:23) Urine Culture (07/28/20 14:22) Hepatitis C Antibody (07/28/20 14:54) Hiv 1&2 Antibody (07/28/20 14:54) Us Non Ob Transvaginal [id number] (07/28/20 14:44) (ELVI WALLER MD) Vital Signs/I&O 07/28/20 07/28/20 13:56 19:05 Temp 36.8 36.8 Pulse 70 66 Resp 18 16 B/P (MAP) 105/56 (72) 95/52 (72) Pulse Ox 100 100 O2 Delivery Room Air Room Air (ELVI WALLER MD) Vital Signs/I&O Capillary Refill : Less Than 3 Seconds (APARNA LUX MED STUDENT) Blood Pressure Mean: 72 Progress Note : Progress Note Patient was seen and examined. Based on her history of unintended weight loss over the past several months and her practice of unprotected sexual activity with multiple partners, she was offered pelvic exam with STI screening and blood testing for HIV and hepatitis C. She requested to proceed with these evaluations. Pelvic exam was performed by Aparna Lux MS4 under my direct supervision and patient's approval. Carolina Brown was the nurse ad operations coordinator. There was copious white physiologic appearing discharge in the vaginal vault. There was small amount of cervical motion tenderness. No significant inflammatory changes or purulent discharge or odor. Preliminary vaginal swabs were positive for clue cells. GC and Chlamydia testing is pending. Ultrasound of the pelvis revealed ovarian cysts. Work-up was otherwise unremarkable. Patient is being treated with Flagyl for bacterial vaginosis. See discharge instructions for further discussion. (ELVI WALLER MD) Diagnostic Imaging Diagonstic Imaging: Ultrasound Plain Films/CT/US/NM/MRI: pelvis Comments NAME: SUSANA CLAYTON Maria E [facility] REC#: [id number] PT STATUS: REG ER : 2000 PHYSICIAN: ELVI WALLER MD ADMIT DATE: 07/28/20/ER Signed Date of Exam:07/28/20 US NON OB TRANSVAGINAL [id number] PROCEDURE: US NONOB transvaginal. TECHNIQUE: Multiple real-time grayscale images were obtained of the pelvis in various projections endovaginally. INDICATION: Pelvic pain and vaginal discharge. COMPARISON: 06/08/2020. FINDINGS: The uterus is retroflexed. No focal masses are seen. The endometrium is at the upper limit of normal in thickness for the secretory phase of a premenopausal female. The right ovary measures 3.3 x 1.9 x 1.1 cm. There is a heterogeneous cystic structure which measures up to 1.9 cm, most likely a hemorrhagic cyst. The left ovary measures 2.6 x 1.8 x 1.9 cm. Blood flow is normal in the ovaries bilaterally. There is a small amount of free fluid. IMPRESSION: 1. Endometrial thickness is at the upper limit of normal for a premenopausal female. No focal uterine mass is seen. 2. 1.9 cm right ovarian hemorrhagic cyst. 3. Small amount of free fluid in the pelvis. Dictated by: Dictated on workstation # [id number] Dict: 07/28/20 1554 Trans: 07/28/20 1643 [id number] [id number] Interpreted by: RICHARDSON KESSLER MD Electronically signed by: RICHARDSON KESSLER MD 07/28/20 5346 Reviewed: Reviewed by Me (ELVI WALLER MD) Departure Impression Primary Impression: Pelvic pain Additional Impressions: Bacterial vaginosis Hemorrhagic ovarian cyst Disposition: HOME, SELF-CARE Condition: Improved Departure-Patient Inst. Decision time for Depature: 18:55 (ELVI WALLER MD) Referrals: DEVIN COUGHLIN MD (PCP/Family) Primary Care Physician Patient Instructions: Bacterial Vaginosis, Ovarian Cyst (DC) Add. Discharge Instructions: You may take Tylenol (acetaminophen) up to 650 mg every 6 hours as needed and/or ibuprofen up to 400 mg every 6 hours as needed for pain. Avoid sexual intercourse or anything in the vagina until the results of your vaginal cultures and STI screens including the hepatitis and HIV tests are known. Follow-up with your primary care provider next week to review culture results and discuss your abnormal weight loss. Complete your Flagyl antibiotic as prescribed for bacterial vaginosis. Call with questions or concerns. Return to the emergency room if you have worsening symptoms. All discharge instructions reviewed with patient and/or family. Voiced understanding. Scripts Metronidazole (Flagyl) 500 Mg Tablet 500 MG PO BID, #14 TAB Prov: ELVI WALLER MD 07/28/20 Medical Student Attestation and Attending Note: I have personally interviewed and examined this patient along with Aparna Lux MS4. I have reviewed student documentation including history, physical, and assessments. I agree with the documentation except where otherwise noted. Exam: General: Alert, oriented, no acute distress, well developed HEENT: Normocephalic and atraumatic Heart: Regular rate and rhythm without murmur Lungs: Clear to auscultation bilaterally with normal effort Abdomen: Soft, mild suprapubic and adnexal tenderness, nondistended, normal bow el sounds Pelvic: Normal external genitalia, copious white physiologic appearing vaginal fluid, no significant cervical inflammation, no purulent or odorous discharge, mild cervical motion discomfort Neuropsych: Alert, oriented, no focal deficits Skin: Warm and dry without rashes (ELVI WALLER MD) Copy Copies To 1: DEVIN COUGHLIN MD, DEREK MED STUDENT Jul 28, 2020 14:20 ELVI WALLER MD Jul 28, 2020 18:59
[2020-07-28 14:31] LABS: BILIRUBIN,URINE NEGATIVE (NEGATIVE); CLARITY,URINE SL CLOUDY; COLOR,URINE YELLOW; GLUCOSE, URINE (UA) NEGATIVE (NEGATIVE); KETONES,URINE 1+ (NEGATIVE); LEUKOCYTE ESTERASE ,URINE TRACE (NEGATIVE); NITRITE,URINE NEGATIVE (NEGATIVE); PROTEIN,URINE NEGATIVE (NEGATIVE)
[2020-07-28 14:52] LABS: BASOPHILS % (AUTO) 1 % (0-10); EOSINOPHILS # (AUTO) 0.1 10^3/uL (0.0-0.3); EOSINOPHILS % (AUTO) 1 % (0-10); HEMATOCRIT 38 % (35-52); HEMOGLOBIN 12.9 g/dL (11.5-16.0); LYMPHOCYTES # (AUTO) 1.9 10^3/uL (1.0-4.0); LYMPHOCYTES % (AUTO) 31 % (12-44); MEAN CORPUSCULAR HEMOGLOBIN 29 pg (25-34); MEAN CORPUSCULAR HGB CONC 34 g/dL (32-36); MEAN CORPUSCULAR VOLUME 86 fL (80-99); MEAN PLATELET VOLUME 9.5 fL (9.0-12.2); MONOCYTES # (AUTO) 0.5 10^3/uL (0.0-1.0); MONOCYTES % (AUTO) 7 % (0-12); NEUTROPHILS # (AUTO) 3.7 10^3/uL (1.8-7.8); NEUTROPHILS % (AUTO) 60 % (42-75); PLATELET COUNT 303 10^3/uL (130-400); WHITE BLOOD COUNT 6.2 10^3/uL (4.3-11.0)
[2020-07-28 14:54] LABS: AMORPHOUS SEDIMENT,UR FEW AMOR URATES /LPF; BACTERIA,URINE MODERATE /HPF
[2020-07-28 15:02] LABS: ALBUMIN 4.3 GM/DL (3.2-4.5)
[2020-07-28 15:03] LABS: CHLORIDE 108 MMOL/L (98-107); POTASSIUM 3.9 MMOL/L (3.6-5.0); SODIUM 141 MMOL/L (135-145)
[2020-07-28 15:04] LABS: CALCIUM 9.4 MG/DL (8.5-10.1)
[2020-07-28 15:05] LABS: GLUCOSE 76 MG/DL (70-105); TOTAL PROTEIN 7.1 GM/DL (6.4-8.2)
[2020-07-28 15:06] LABS: CARBON DIOXIDE 24 MMOL/L (21-32)
[2020-07-28 15:07] LABS: BILIRUBIN,TOTAL 0.5 MG/DL (0.1-1.0)
[2020-07-28 15:08] LABS: ALKALINE PHOSPHATASE 67 U/L (40-136)
[2020-07-28 15:09] LABS: CREATININE SERUM 0.78 MG/DL (0.60-1.30); GFR ESTIMATED > 60
[2020-07-28 15:10] LABS: BUN/CREATININE RATIO 15
[2020-07-28 15:11] LABS: ALANINE AMINOTRANSFERASE 9 U/L (0-55)
[2020-07-28 15:31] LABS: TSH (THYROID ANALYZER) 0.81 UIU/ML (0.35-4.94)
--- NOTE | 2020-07-28 16:05 | Diagnostic Imaging Report ---
PROCEDURE: US NONOB transvaginal. TECHNIQUE: Multiple real-time grayscale images were obtained of the pelvis in various projections endovaginally. INDICATION: Pelvic pain and vaginal discharge. COMPARISON: 06/08/2020. FINDINGS: The uterus is retroflexed. No focal masses are seen. The endometrium is at the upper limit of normal in thickness for the secretory phase of a premenopausal female. The right ovary measures 3.3 x 1.9 x 1.1 cm. There is a heterogeneous cystic structure which measures up to 1.9 cm, most likely a hemorrhagic cyst. The left ovary measures 2.6 x 1.8 x 1.9 cm. Blood flow is normal in the ovaries bilaterally. There is a small amount of free fluid. IMPRESSION: 1. Endometrial thickness is at the upper limit of normal for a premenopausal female. No focal uterine mass is seen. 2. 1.9 cm right ovarian hemorrhagic cyst. 3. Small amount of free fluid in the pelvis. Dictated by: Dictated on workstation # [id number]
[2020-07-28] MEDS ORDERED: METR500T PO (18:57)
[2020-07-28 19:05] VITALS: BP 95/52
[2020-07-31 15:12] LABS: HEPATITIS C ANTIBODY C Non-Reactive (Non-Reactive)
== END 2020-07-28 19:05 | disposition home or self-care (01) ==
LOC: EDUNIT# 13:31 → ER 13:33
DX: N76.0 Acute vaginitis (principal); N83.201 Unspecified ovarian cyst, right side; J45.909 Unspecified asthma, uncomplicated
CPT/HCPCS: 36415; 76830; 80053; 81000; 84443; 84703; 85025; 86703; 86803; 87070; 87088; 87205; 87210; 87491; 87591

== ENCOUNTER 2020-10-12 21:16 | Emergency (ER) | payer MEDICAID ==
[~2020-10-12 21:16] MED LIST changes: -SULF1TAB35 PO
--- NOTE | 2020-10-12 22:17 | ED GU-Female ---
General Chief Complaint: - Reproductive Stated Complaint: VAGINAL BLEEDING, CRAMPS Nursing Triage Note: TO ED VIA POV AND AMBULATORY TO ROOM 7 WITH C/O PERIOD ON 09/08 LASTING 5 DAYS, THEN 10 DAYS LATER BLEEDING AGAIN FOR UNKNOWN AMOUNT OF TIME, THEN VAGINAL BLEEDING END OF SEPTEMBER, CRAMPS. DENIES SEEING OBGYN, PCP FOR THIS CONCERN. Source: patient History of Present Illness Date Seen by Provider: Oct 12, 2020 Time Seen by Provider: 22:05 Initial Comments PT ARRIVES VIA POV FROM HOME STATES SHE HAS HAD IRREGULAR VAGINAL BLEEDING AND CRAMPING OFF AND ON FOR THE LAST MONTH STATES SHE HAD A NORMAL PERIOD 09/08/20 THAT LASTED 5 DAYS 10 DAYS LATER, SHE STARTED BLEEDING AGAIN AND BLED FOR 5 DAYS THEN 9 DAYS AGO SHE STARTED BLEEDING AGAIN--STATES IT WAS JUST PINK DISCHARGE FOR THE FIRST COUPLE OF DAYS, NOW IS DARK RED BLOOD--NO CLOTS. STATES IT IS NOT HEAVY BLEEDING. HAS USED 5 REGULAR PADS TODAY. NO URINARY SYMPTOMS HAS HAD 2 NEGATIVE HOME TESTS IN THE LAST MONTH PT HAS NOT BEEN ON CONTROL FOR 2 YEARS STATES SHE DID HAVE MIRENA IUD, THEN HAD IT REMOVED AND WAS ON DEPO-PROVERA, BUT THIS WAS STOPPED 2 YEARS AGO WHEN IT WAS DISCOVERED THAT SHE HAD FACTOR 5 MUTATION STATES SHE HAS NEVER HAD BLOOD CLOTS OR BLEEDING PROBLEMS IN THE PAST DOES HAVE CHRONIC PELVIC PAIN, AND HISTORY OF OVARIAN CYSTS HAS NOT TAKEN ANYTHING FOR PAIN AT ANY TIME SYMPTOMS NO DIFFERENT IN ANY WAY DANIELLE HAS NOT SOUGHT CARE UNTIL DANIELLE PCP: DR. DEVIN COUGHLIN MANAGER ANIMATION: DR. GARCIA Allergies and Home Medications Allergies Coded Allergies: No Known Drug Allergies (Unverified , 06/12/18) Patient Home Medication List Home Medication List Reviewed: Yes Hydrocodone/Acetaminophen (Hydrocodone-Acetamin 5-325 mg) 1 Each Tablet, 1 TAB PO Q4H PRN for PAIN-MODERATE (5-7) Prescribed by: KEVIN GARCIA on 07/26/19 0935 Hydrocodone/Acetaminophen (Hydrocodone-Acetamin 5-325 mg) 1 Each Tablet, 1 TAB PO Q4H PRN for PAIN-MODERATE (5-7) Prescribed by: KYM LAWRENCE on 05/22/20 2321 Ibuprofen (Ibuprofen) 600 Mg Tablet, 600 MG PO Q6H Prescribed by: KEVIN GARCIA on 07/26/19 0935 Metronidazole (Flagyl) 500 Mg Tablet, 500 MG PO BID Prescribed by: ELVI LOONEY on 07/28/20 1857 Naproxen (Naproxen) 500 Mg Tablet.dr, 500 MG PO BID Prescribed by: MARIAM MENDIETA on 10/12/20 2346 Nitrofurantoin Monohyd/M-Cryst (Macrobid 100 mg Capsule) 100 Mg Capsule, 1 TAB PO BID Prescribed by: MARIAM MENDIETA on 10/12/20 2346 Ondansetron (Ondansetron Odt) 4 Mg Tab.rapdis, 4 MG PO TID PRN for NAUSEA-1ST LINE Prescribed by: QUINCY CONLEY on 07/26/19 1304 Ondansetron (Ondansetron Odt) 4 Mg Tab.rapdis, 4 MG PO Q6H PRN for NAUSEA/VOMITING Prescribed by: KYM LAWRENCE on 05/22/20 2320 Phenazopyridine HCl (Pyridium) 200 Mg Tablet, 1 TAB PO TID Prescribed by: MARIAM MENDIETA on 10/12/20 2346 Review of Systems Review of Systems Constitutional: no symptoms reported; No dizziness EENTM: no symptoms reported Respiratory: no symptoms reported Cardiovascular: no symptoms reported Gastrointestinal: No diarrhea, No nausea, No vomiting; other (CRAMPING) Genitourinary: see HPI; denies dysuria : Yes Musculoskeletal: no symptoms reported Skin: no symptoms reported Psychiatric/Neurological: No Symptoms Reported Endocrine: No Symptoms Reported Hematologic/Lymphatic: See HPI Past Yjkubuk-Jzfrve-Xbqdwz Hx Patient Social History Tobacco Use?: Yes Tobacco type used: Cigarettes Use of E-Cig and/or Vaping dev: Yes E-Cig or Vaping type used: Nicotine Substance use?: No Alcohol Use?: No Pt feels they are or have been: No Immunizations Up To Date Tetanus Booster (TDap): Less than 5yrs PED Vaccines UTD: No COVID19 Vaccine Cipher Expert: NO VAX Seasonal Allergies Seasonal Allergies: Yes Past Medical History Surgery/Hospitalization HX: HX: FACTOR V SX: ANA, UMBILICAL HERNIA REPAIR, TONSILLECTOMY/ADENOIDECTOMY; LAPAROSCOPIC RIGHT OVARIAN CYSTECTOMY 07/26/[address] GARCIA Surgeries: Yes (UMBILICAL HERNIA REPAIR WITH CHOLECYSTECTOMY; RIGHT OVARIAN CYST REMOVED) Abdominal, Adenoidectomy, Gallbladder, Tonsillectomy Respiratory: Yes Asthma Currently Using CPAP: No Currently Using BIPAP: No Cardiac: No Neurological: No Reproductive Disorders: Yes (CHRONIC PELVIC/RLQ PAIN ) Female Reproductive Disorders: Denies, Ovarian Cyst Sexually Transmitted Disease: No HIV/AIDS: No Genitourinary: No Gastrointestinal: Yes (CHRONIC PELVIC/RLQ PAIN; CHOLECYSTECTOMY W/ UMBILICAL HERNIA REPAIR) Abdominal Hernia, Gall Bladder Disease Musculoskeletal: No Endocrine: No HEENT: No Cancer: No Psychosocial: Yes Eating Disorder, Anxiety, PTSD, Bipolar, Depression Integumentary: Yes (TATTOOS) 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) Adverse Reaction/Blood Tranf: No Family Medical History BIPOLAR 19 FATHER Diabetes mellitus 19 FATHER FH: factor V Leiden mutation M GRANDMOTHER FH: heart disease GRANDPARENT FH: hyperlipidemia 19 MOTHER GRANDPARENT Factor V deficiency 19 MOTHER G8 BROTHER G8 BROTHER G8 BROTHER G8 SISTER G8 SISTER Hypertension 19 FATHER GRANDPARENT IBS 19 FATHER Seizure disorder 19 FATHER Tuberculosis 19 FATHER Physical Exam Vital Signs Vital Signs - First Documented 10/12/20 10/13/20 21:58 00:08 Temp 36.0 Pulse 76 Resp 16 B/P (MAP) 100/66 (77) Pulse Ox 99 O2 Delivery Room Air Capillary Refill : Less Than 3 Seconds Height, Weight, BMI Height: 5'0" Weight: 105lbs. 0.0oz. [id number]; 21.00 BMI Method:Stated General Appearance: WD/WN, no apparent distress, thin HEENT: No pale conjunctivae (R), No pale conjunctivae (L) Cardiovascular: normal peripheral pulses, regular rate, rhythm, no murmur Respiratory: normal breath sounds, no respiratory distress, no accessory muscle use Gastrointestinal: normal bowel sounds, non tender, soft, no organomegaly Pelvic: normal external exam, normal adnexa, no cerv. motion tender, no masses; No discharge, No lesions, No mass, No tender w/ cervical motion, No tender adnexa, No tender uterus; vaginal bleeding (SMALL AMOUNT OF BLOOD IN CANAL. NO CLOTS. CERVIX WITH NORMAL APPEARANCE. ) Back: no CVA tenderness Extremities: normal inspection Neurologic/Psychiatric: no motor/sensory deficits, alert, normal mood/affect, oriented x 3 Skin: normal color (DARK SKINNED), warm/dry, tattoos/piercings (TATTOOS) Progress/Results/Core Measures Suspected Sepsis SIRS Temperature: Pulse: 76 Respiratory Rate: 16 Laboratory Tests 10/12/20 22:36: White Blood Count 5.1 Blood Pressure 100 /66 Mean: 77 Laboratory Tests 10/12/20 22:36: INR Comment 1.0, Platelet Count 259 Results/Orders Lab Results Laboratory Tests Test 10/12/20 22:20 10/12/20 22:36 10/12/20 23:43 Range/Units Urine Color ORANGE Urine Clarity SL CLOUDY Urine pH 5.5 5-9 Urine Specific [place] 1.025 H 1.016-1.022 Urine Protein TRACE H NEGATIVE Urine Glucose (UA) NEGATIVE NEGATIVE Urine Ketones NEGATIVE NEGATIVE Urine Nitrite NEGATIVE NEGATIVE Urine Bilirubin NEGATIVE NEGATIVE Urine Urobilinogen 0.2 < = 1.0 MG/DL Urine Leukocyte Esterase 2+ H NEGATIVE Urine RBC (Auto) 3+ H NEGATIVE Urine RBC 10-25 H /HPF Urine WBC 25-50 H /HPF Urine Squamous Epithelial Cells 2-5 /HPF Urine Crystals NONE /LPF Urine Bacteria MODERATE H /HPF Urine Casts NONE /LPF Urine Mucus NEGATIVE /LPF Urine Culture Indicated YES Urine Opiates Screen NEGATIVE NEGATIVE Urine Oxycodone Screen NEGATIVE NEGATIVE Urine Methadone Screen NEGATIVE NEGATIVE Urine Propoxyphene Screen NEGATIVE NEGATIVE Urine Barbiturates Screen NEGATIVE NEGATIVE Ur Tricyclic Antidepressants Screen NEGATIVE NEGATIVE Urine Phencyclidine Screen NEGATIVE NEGATIVE Urine Amphetamines Screen NEGATIVE NEGATIVE Urine Methamphetamines Screen NEGATIVE NEGATIVE Urine Benzodiazepines Screen NEGATIVE NEGATIVE Urine Cocaine Screen NEGATIVE NEGATIVE Urine Cannabinoids Screen POSITIVE H NEGATIVE White Blood Count 5.1 4.3-11.0 10^3/uL Red Blood Count 4.33 3.80-5.11 10^6/uL Hemoglobin 12.4 11.5-16.0 g/dL Hematocrit 38 35-52 % Mean Corpuscular Volume 87 80-99 fL Mean Corpuscular Hemoglobin 29 25-34 pg Mean Corpuscular Hemoglobin Concent 33 32-36 g/dL Red Cell Distribution Width 13.9 10.0-14.5 % Platelet Count 259 130-400 10^3/uL Mean Platelet Volume 9.3 9.0-12.2 fL Immature Granulocyte % (Auto) 0 % Neutrophils (%) (Auto) 56 42-75 % Lymphocytes (%) (Auto) 32 12-44 % Monocytes (%) (Auto) 10 0-12 % Eosinophils (%) (Auto) 2 0-10 % Basophils (%) (Auto) 0 0-10 % Neutrophils # (Auto) 2.9 1.8-7.8 10^3/uL Lymphocytes # (Auto) 1.6 1.0-4.0 10^3/uL Monocytes # (Auto) 0.5 0.0-1.0 10^3/uL Eosinophils # (Auto) 0.1 0.0-0.3 10^3/uL Basophils # (Auto) 0.0 0.0-0.1 10^3/uL Immature Granulocyte # (Auto) 0.0 0.0-0.1 10^3/uL Prothrombin Time 14.0 12.2-14.7 SEC INR Comment 1.0 0.8-1.4 Activated Partial Thromboplast Time 30 24-35 SEC Serum Test, Qualitative NEGATIVE NEGATIVE My Orders Orders - MARIAM MENDIETA DO Cbc With Automated Diff (10/12/20 22:13) Hcg,Qualitative Serum (10/12/20 22:13) Protime With Inr (10/12/20 22:13) Partial Thromboplastin Time (10/12/20 22:13) Drug Screen Stat (Urine) (10/12/20 22:13) Ua Culture If Indicated (10/12/20 22:13) Urine Culture (10/12/20 22:20) Neisseria Gonorrhea Swab (10/12/20 23:35) Chlam Dna Probe (10/12/20 23:35) Genital Culture (10/12/20 23:35) Wet Prep (10/12/20 23:35) Hussain Prep (10/12/20 23:35) Ceftriaxone (Rocephin) (10/12/20 23:45) Azithromycin Tablet (Zithromax Tablet) (10/12/20 23:45) Lidocaine 1% Inj 20 Ml (Xylocaine 1% Inj (10/12/20 23:45) Medications Given in ED Current Medications Medications Dose Ordered Sig/Arya Route Start Time Stop Time Status Last Admin Dose Admin Azithromycin 1,000 mg ONCE ONCE PO 10/12/20 23:45 10/12/20 23:46 DC 10/13/20 00:03 1,000 MG Lidocaine HCl 2.1 ml ONCE ONCE INJ 10/12/20 23:45 10/12/20 23:46 DC 10/13/20 00:03 2.1 ML Vital Signs/I&O 10/12/20 10/13/20 21:58 00:08 Temp 36.0 36.0 Pulse 76 64 Resp 16 16 B/P (MAP) 100/66 (77) 100/66 Pulse Ox 99 O2 Delivery Room Air Room Air Capillary Refill : Less Than 3 Seconds Blood Pressure Mean: 77 Progress Note : Progress Note DID NOT USE ANY PADS DURING ER STAY Departure Impression Primary Impression: urinary tract infection Additional Impression: DUB (dysfunctional uterine bleeding) Disposition: HOME, SELF-CARE Condition: Stable Departure-Patient Inst. Referrals: KEVIN GARCIA CHAD C MD (PCP/Family) Primary Care Physician Patient Instructions: Urinary Tract Infection, Adult (DC), Bleeding Between Periods Add. Discharge Instructions: LOTS OF CLEAR LIQUIDS--NO COFFEE, POP OR TEA FOLLOW UP WITH DR. GARCIA NEXT WEEK FOR FURTHER CARE All discharge instructions reviewed with patient and/or family. Voiced understanding. Scripts Naproxen (Naproxen) 500 Mg Tablet. 500 MG PO BID, #20 TAB Prov: MARIAM MENDIETA DO 10/12/20 Phenazopyridine HCl (Pyridium) 200 Mg Tablet 1 TAB PO TID, #15 TAB Prov: MARIAM MENDIETA DO 10/12/20 Nitrofurantoin Monohyd/M-Cryst (Macrobid 100 mg Capsule) 100 Mg Capsule 1 TAB PO BID, #20 CAP Prov: TACHO MENDIETAA K 10/12/20 MARIAM MENDIETA DO Oct 12, 2020 22:17
[2020-10-12 22:28] LABS: BILIRUBIN,URINE NEGATIVE (NEGATIVE); CLARITY,URINE SL CLOUDY; COLOR,URINE ORANGE; GLUCOSE, URINE (UA) NEGATIVE (NEGATIVE); KETONES,URINE NEGATIVE (NEGATIVE); LEUKOCYTE ESTERASE ,URINE 2+ (NEGATIVE); NITRITE,URINE NEGATIVE (NEGATIVE); PH,URINE 5.5 (5-9); PROTEIN,URINE TRACE (NEGATIVE)
[2020-10-12 22:41] LABS: BACTERIA,URINE MODERATE /HPF; WBC,URINE 25-50 /HPF
[2020-10-12 22:50] LABS: BASOPHILS % (AUTO) 0 % (0-10); EOSINOPHILS # (AUTO) 0.1 10^3/uL (0.0-0.3); EOSINOPHILS % (AUTO) 2 % (0-10); HEMATOCRIT 38 % (35-52); HEMOGLOBIN 12.4 g/dL (11.5-16.0); LYMPHOCYTES # (AUTO) 1.6 10^3/uL (1.0-4.0); LYMPHOCYTES % (AUTO) 32 % (12-44); MEAN CORPUSCULAR HEMOGLOBIN 29 pg (25-34); MEAN CORPUSCULAR HGB CONC 33 g/dL (32-36); MEAN CORPUSCULAR VOLUME 87 fL (80-99); MEAN PLATELET VOLUME 9.3 fL (9.0-12.2); MONOCYTES # (AUTO) 0.5 10^3/uL (0.0-1.0); MONOCYTES % (AUTO) 10 % (0-12); NEUTROPHILS # (AUTO) 2.9 10^3/uL (1.8-7.8); NEUTROPHILS % (AUTO) 56 % (42-75); PLATELET COUNT 259 10^3/uL (130-400); WHITE BLOOD COUNT 5.1 10^3/uL (4.3-11.0)
[2020-10-12 23:05] LABS: AMPHETAMINE SCREEN, URINE NEGATIVE (NEGATIVE); BARBITURATE SCREEN URINE NEGATIVE (NEGATIVE); BENZODIAZEPINES SCREEN URINE NEGATIVE (NEGATIVE); CANNABINOID SCREEN, URINE POSITIVE (NEGATIVE); COCAINE SCREEN URINE NEGATIVE (NEGATIVE); METHADONE STAT NEGATIVE (NEGATIVE); METHAMPHETAMINE SCREEN URINE S NEGATIVE (NEGATIVE); OPIATE SCREEN URINE NEGATIVE (NEGATIVE); OXYCODONE STAT NEGATIVE (NEGATIVE); PROPOXYPHENE STAT NEGATIVE (NEGATIVE); TRICYCLIC ANTIDEPRESSANTS SCRE NEGATIVE (NEGATIVE)
[2020-10-12] MEDS ORDERED: cefTRIAXone 1,000 MG VIAL IM SCH (23:45)
[2020-10-12] MEDS ORDERED: AZITHROMYCIN 250 MG TAB (ZITHROMAX) PO ONE (23:45)
[2020-10-12] MEDS ORDERED: LIDOCAINE 1% INJ 20 ML 20 ML VIAL INJ ONE (23:45)
[2020-10-12] MEDS ORDERED: PHEN-640 PO (23:46)
[2020-10-12] MEDS ORDERED: NAPR500T8 PO (23:46)
[2020-10-12] MEDS ORDERED: NITR-65 PO (23:46)
[2020-10-13 00:08] VITALS: BP 100/66
== END 2020-10-13 00:15 | disposition home or self-care (01) ==
LOC: EDUNIT# 21:16 → ER 21:18
DX: N39.0 Urinary tract infection, site not specified (principal); N93.8 Other specified abnormal uterine and vaginal bleeding; J45.909 Unspecified asthma, uncomplicated; Z32.02 Encounter for pregnancy test, result negative
CPT/HCPCS: 36415; 80306; 81000; 84703; 85025; 85610; 85730; 87070; 87077; 87088; 87186; 87205; 87210; 87220; 87491; 87591; 99284

== ENCOUNTER 2021-02-18 14:42 | Emergency (ER) | payer MEDICAID ==
[~2021-02-18] VITALS: Ht 152.4 cm; Wt 47.6 kg
[~2021-02-18 14:42] MED LIST changes: -DOXY100C2 PO; +DOXY100C5 PO; +NAPR500T8 PO; +PHEN-640 PO
--- NOTE | 2021-02-18 15:12 | ED General ---
General Stated Complaint: SYNCOPE Source of Information: Patient Exam Limitations: No Limitations History of Present Illness Date Seen by Provider: Feb 18, 2021 Time Seen by Provider: 15:10 Initial Comments To ER by private vehicle with reports of a syncopal event today. She states that she was walking to the bathroom because she felt nauseated like she might vomit. She then got very hot and collapsed to the floor. She states that she can hear her boyfriend over her but was not able to respond. She had 2 previous episodes like this over the course of the past week. She is on olanzapine and Remeron for anxiety and depression she states. No fevers or chills. At this moment she denies any chest pain shortness of breath fevers chills nausea or any other symptoms. Timing/Duration: 1-2 Days Severity: Moderate Associated Systoms: Denies Symptoms Allergies and Home Medications Allergies Coded Allergies: No Known Drug Allergies (Unverified , 06/12/18) Patient Home Medication List Home Medication List Reviewed: Yes Hydrocodone/Acetaminophen (Hydrocodone-Acetamin 5-325 mg) 1 Each Tablet, 1 TAB PO Q4H PRN for PAIN-MODERATE (5-7) Prescribed by: KEVIN GARCIA on 07/26/19 0935 Hydrocodone/Acetaminophen (Hydrocodone-Acetamin 5-325 mg) 1 Each Tablet, 1 TAB PO Q4H PRN for PAIN-MODERATE (5-7) Prescribed by: KYM LAWRENCE on 05/22/20 2321 Ibuprofen (Ibuprofen) 600 Mg Tablet, 600 MG PO Q6H Prescribed by: KEVIN GARCIA on 07/26/19 0935 Metronidazole (Flagyl) 500 Mg Tablet, 500 MG PO BID Prescribed by: ELVI LOONEY on 07/28/20 1857 Naproxen (Naproxen) 500 Mg Tablet.dr, 500 MG PO BID Prescribed by: MARIAM MENDIETA on 10/12/20 2346 Nitrofurantoin Monohyd/M-Cryst (Macrobid 100 mg Capsule) 100 Mg Capsule, 1 TAB PO BID Prescribed by: MARIAM MENDIETA on 10/12/20 2346 Ondansetron (Ondansetron Odt) 4 Mg Tab.rapdis, 4 MG PO TID PRN for NAUSEA-1ST LINE Prescribed by: QUINCY CONLEY on 07/26/19 1304 Ondansetron (Ondansetron Odt) 4 Mg Tab.rapdis, 4 MG PO Q6H PRN for NAUSEA/VOMITING Prescribed by: KYM LAWRENCE on 05/22/20 2320 Phenazopyridine HCl (Pyridium) 200 Mg Tablet, 1 TAB PO TID Prescribed by: MARIAM MENDIETA on 10/12/20 2346 Review of Systems Review of Systems Constitutional: see HPI EENTM: see HPI Respiratory: no symptoms reported Cardiovascular: no symptoms reported Gastrointestinal: nausea Genitourinary: no symptoms reported Musculoskeletal: no symptoms reported Skin: no symptoms reported Psychiatric/Neurological: No Symptoms Reported Hematologic/Lymphatic: No Symptoms Reported Immunological/Allergic: no symptoms reported Past Hpmrkno-Etyqio-Scasta Hx Immunizations Up To Date Tetanus Booster (TDap): Less than 5yrs PED Vaccines UTD: No Seasonal Allergies Seasonal Allergies: Yes Past Medical History Surgery/Hospitalization HX: HX: FACTOR V SX: ANA, UMBILICAL HERNIA REPAIR, TONSILLECTOMY/ADENOIDECTOMY; LAPAROSCOPIC RIGHT OVARIAN CYSTECTOMY 07/26/[address] GARCIA Surgeries: Yes (UMBILICAL HERNIA REPAIR WITH CHOLECYSTECTOMY; RIGHT OVARIAN CYST REMOVED) Abdominal, Adenoidectomy, Gallbladder, Tonsillectomy Respiratory: Yes Asthma Currently Using CPAP: No Currently Using BIPAP: No Cardiac: No Neurological: No Reproductive Disorders: Yes (CHRONIC PELVIC/RLQ PAIN ) Female Reproductive Disorders: Denies, Ovarian Cyst Sexually Transmitted Disease: No HIV/AIDS: No Genitourinary: No Gastrointestinal: Yes (CHRONIC PELVIC/RLQ PAIN; CHOLECYSTECTOMY W/ UMBILICAL HERNIA REPAIR) Abdominal Hernia, Gall Bladder Disease Musculoskeletal: No Endocrine: No HEENT: No Cancer: No Psychosocial: Yes Eating Disorder, Anxiety, PTSD, Bipolar, Depression Integumentary: Yes (TATTOOS) 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) Adverse Reaction/Blood Tranf: No Family Medical History BIPOLAR 19 FATHER Diabetes mellitus 19 FATHER FH: factor V Leiden mutation M GRANDMOTHER FH: heart disease GRANDPARENT FH: hyperlipidemia 19 MOTHER GRANDPARENT Factor V deficiency 19 MOTHER G8 BROTHER G8 BROTHER G8 BROTHER G8 SISTER G8 SISTER Hypertension 19 FATHER GRANDPARENT IBS 19 FATHER Seizure disorder 19 FATHER Tuberculosis 19 FATHER Physical Exam Vital Signs Vital Signs - First Documented 02/18/21 15:00 Temp 36.7 Pulse 104 Resp 16 B/P (MAP) 138/87 (104) Pulse Ox 99 O2 Delivery Room Air Capillary Refill : Height, Weight, BMI Height: 5'0" Weight: 105lbs. 0.0oz. [id number]; BMI Method:Stated General Appearance: No Apparent Distress, WD/WN Eyes: Bilateral Eye Normal Inspection, Bilateral Eye PERRL, Bilateral Eye EOMI Neck: Full Range of Motion, Normal Inspection Respiratory: Normal Breath Sounds, No Accessory Muscle Use, No Respiratory Distress Cardiovascular: Normal Peripheral Pulses, Tachycardia (Heart rate 105) Gastrointestinal: Normal Bowel Sounds, Non Tender, Soft Extremity: Normal Capillary Refill, Normal Inspection Neurologic/Psychiatric: Alert, Oriented x3 Skin: Normal Color, Warm/Dry Progress/Results/Core Measures Suspected Sepsis SIRS Temperature: Pulse: Respiratory Rate: Laboratory Tests 02/18/21 15:05: White Blood Count 5.5 Blood Pressure / Mean: Laboratory Tests 02/18/21 15:05: Creatinine 0.83, Platelet Count 292, Total Bilirubin 0.3 Results/Orders Lab Results Laboratory Tests Test 02/18/21 15:05 02/18/21 15:12 Range/Units White Blood Count 5.5 4.3-11.0 10^3/uL Red Blood Count 4.48 3.80-5.11 10^6/uL Hemoglobin 12.6 11.5-16.0 g/dL Hematocrit 38 35-52 % Mean Corpuscular Volume 85 80-99 fL Mean Corpuscular Hemoglobin 28 25-34 pg Mean Corpuscular Hemoglobin Concent 33 32-36 g/dL Red Cell Distribution Width 14.4 10.0-14.5 % Platelet Count 292 130-400 10^3/uL Mean Platelet Volume 9.2 9.0-12.2 fL Immature Granulocyte % (Auto) 0 % Neutrophils (%) (Auto) 60 42-75 % Lymphocytes (%) (Auto) 29 12-44 % Monocytes (%) (Auto) 10 0-12 % Eosinophils (%) (Auto) 1 0-10 % Basophils (%) (Auto) 0 0-10 % Neutrophils # (Auto) 3.3 1.8-7.8 10^3/uL Lymphocytes # (Auto) 1.6 1.0-4.0 10^3/uL Monocytes # (Auto) 0.5 0.0-1.0 10^3/uL Eosinophils # (Auto) 0.1 0.0-0.3 10^3/uL Basophils # (Auto) 0.0 0.0-0.1 10^3/uL Immature Granulocyte # (Auto) 0.0 0.0-0.1 10^3/uL Sodium Level 139 135-145 MMOL/L Potassium Level 3.8 3.6-5.0 MMOL/L Chloride Level 107 98-107 MMOL/L Carbon Dioxide Level 23 21-32 MMOL/L Anion Gap 9 5-14 MMOL/L Blood Urea Nitrogen 10 7-18 MG/DL Creatinine 0.83 0.60-1.30 MG/DL Estimat Glomerular Filtration Rate 105 BUN/Creatinine Ratio 12 Glucose Level 109 H 70-105 MG/DL Calcium Level 9.2 8.5-10.1 MG/DL Corrected Calcium 8.9 8.5-10.1 MG/DL Total Bilirubin 0.3 0.1-1.0 MG/DL Aspartate Amino Transf (AST/SGOT) 18 5-34 U/L Alanine Aminotransferase (ALT/SGPT) 17 0-55 U/L Alkaline Phosphatase 73 40-136 U/L Total Protein 7.5 6.4-8.2 GM/DL Albumin 4.4 3.2-4.5 GM/DL Serum Test, Qualitative NEGATIVE NEGATIVE Urine Color YELLOW Urine Clarity CLEAR Urine pH 6.5 5-9 Urine Specific [place] 1.015 L 1.016-1.022 Urine Protein NEGATIVE NEGATIVE Urine Glucose (UA) NEGATIVE NEGATIVE Urine Ketones NEGATIVE NEGATIVE Urine Nitrite NEGATIVE NEGATIVE Urine Bilirubin NEGATIVE NEGATIVE Urine Urobilinogen 0.2 < = 1.0 MG/DL Urine Leukocyte Esterase NEGATIVE NEGATIVE Urine RBC (Auto) NEGATIVE NEGATIVE Urine RBC NONE /HPF Urine WBC 5-10 H /HPF Urine Squamous Epithelial Cells 5-10 /HPF Urine Renal Epithelial Cells NONE /HPF Urine Crystals NONE /LPF Urine Bacteria FEW H /HPF Urine Casts NONE /LPF Urine Mucus NEGATIVE /LPF Urine Culture Indicated YES My Orders Orders - KALIN CALDERON PHOTOGRAPHY SALES ASSOCIATE Cbc With Automated Diff (02/18/21 15:04) Hcg,Qualitative Serum (02/18/21 15:04) Comprehensive Metabolic Panel (02/18/21 15:04) Ua Culture If Indicated (02/18/21 15:04) Ed Iv/Invasive Line Start (02/18/21 15:04) Ekg Tracing (02/18/21 15:04) Urine Culture (02/18/21 15:12) Vital Signs/I&O 02/18/21 15:00 Temp 36.7 Pulse 104 Resp 16 B/P (MAP) 138/87 (104) Pulse Ox 99 O2 Delivery Room Air Capillary Refill : Departure Impression Primary Impression: UTI (urinary tract infection) Additional Impressions: N&V (nausea and vomiting) Syncope Disposition: 01 HOME, SELF-CARE Condition: Stable Departure-Patient Inst. Decision time for Depature: 15:50 Referrals: DEVIN COUGHLIN MD (PCP/Family) Primary Care Physician Patient Instructions: Syncope (Fainting) (DC) Add. Discharge Instructions: 1. Return to ER for any concerns 2. Follow up with your doctor next week. Take the nausea medication as needed. If the urine culture shows need for further antibiotics we will call you with that. Follow-up with Dr. Coughlin this week. Scripts Ondansetron (Ondansetron Odt) 8 Mg Tab.rapdis 8 MG PO Q6H PRN for NAUSEA/VOMITING, #10 TAB Prov: KALIN CALDERON [employer]GR[employer] SALES ASSOCIATE 02/18/21 KALIN CALDERON [employer] SALES ASSOCIATE Feb 18, 2021 15:12
[2021-02-18 15:15] LABS: BASOPHILS % (AUTO) 0 % (0-10); EOSINOPHILS # (AUTO) 0.1 10^3/uL (0.0-0.3); EOSINOPHILS % (AUTO) 1 % (0-10); HEMATOCRIT 38 % (35-52); HEMOGLOBIN 12.6 g/dL (11.5-16.0); LYMPHOCYTES # (AUTO) 1.6 10^3/uL (1.0-4.0); LYMPHOCYTES % (AUTO) 29 % (12-44); MEAN CORPUSCULAR HEMOGLOBIN 28 pg (25-34); MEAN CORPUSCULAR HGB CONC 33 g/dL (32-36); MEAN CORPUSCULAR VOLUME 85 fL (80-99); MEAN PLATELET VOLUME 9.2 fL (9.0-12.2); MONOCYTES # (AUTO) 0.5 10^3/uL (0.0-1.0); MONOCYTES % (AUTO) 10 % (0-12); NEUTROPHILS # (AUTO) 3.3 10^3/uL (1.8-7.8); NEUTROPHILS % (AUTO) 60 % (42-75); PLATELET COUNT 292 10^3/uL (130-400); WHITE BLOOD COUNT 5.5 10^3/uL (4.3-11.0)
[2021-02-18 15:21] LABS: BILIRUBIN,URINE NEGATIVE (NEGATIVE); CLARITY,URINE CLEAR; COLOR,URINE YELLOW; GLUCOSE, URINE (UA) NEGATIVE (NEGATIVE); KETONES,URINE NEGATIVE (NEGATIVE); LEUKOCYTE ESTERASE ,URINE NEGATIVE (NEGATIVE); NITRITE,URINE NEGATIVE (NEGATIVE); PH,URINE 6.5 (5-9); PROTEIN,URINE NEGATIVE (NEGATIVE)
[2021-02-18 15:24] LABS: ALBUMIN 4.4 GM/DL (3.2-4.5)
[2021-02-18 15:25] LABS: POTASSIUM 3.8 MMOL/L (3.6-5.0)
[2021-02-18 15:26] LABS: CALCIUM 9.2 MG/DL (8.5-10.1)
[2021-02-18 15:27] LABS: TOTAL PROTEIN 7.5 GM/DL (6.4-8.2)
[2021-02-18 15:29] LABS: BILIRUBIN,TOTAL 0.3 MG/DL (0.1-1.0)
[2021-02-18 15:29] LABS: BACTERIA,URINE FEW /HPF
[2021-02-18 15:31] LABS: CREATININE SERUM 0.83 MG/DL (0.60-1.30)
[2021-02-18] MEDS ORDERED: ONDA8TAB13 PO (15:52)
[2021-02-18] MEDS ORDERED: cefTRIAXone 1 GM PRE-MIX 50 ML IV ONE (16:00)
[2021-02-18 16:28] VITALS: BP 105/67
== END 2021-02-18 16:32 | disposition home or self-care (01) ==
LOC: EDUNIT# 14:42 → ER 14:47
DX: N39.0 Urinary tract infection, site not specified (principal); R11.2 Nausea with vomiting, unspecified; R55 Syncope and collapse; R00.0 Tachycardia, unspecified; J45.909 Unspecified asthma, uncomplicated
CPT/HCPCS: 36415; 80053; 81000; 84703; 85025; 87088; 93005

== ENCOUNTER 2021-03-13 20:31 | Emergency (ER) | payer MEDICAID ==
[~2021-03-13] VITALS: Ht 162 cm; Wt 44.0 kg
[~2021-03-13 20:31] MED LIST changes: +ONDA8TAB13 PO
[2021-03-13 21:18] VITALS: BP 114/81
[2021-03-13 21:33] LABS: BILIRUBIN,URINE NEGATIVE (NEGATIVE); CLARITY,URINE CLEAR; COLOR,URINE YELLOW; GLUCOSE, URINE (UA) NEGATIVE (NEGATIVE); KETONES,URINE NEGATIVE (NEGATIVE); LEUKOCYTE ESTERASE ,URINE 1+ (NEGATIVE); NITRITE,URINE NEGATIVE (NEGATIVE); PROTEIN,URINE NEGATIVE (NEGATIVE)
[2021-03-13 21:44] LABS: AMORPHOUS SEDIMENT,UR FEW AMOR PHOSPHATE /LPF; BACTERIA,URINE FEW /HPF; RBC,URINE 0-2 /HPF
[2021-03-13] MEDS ORDERED: CEFU250T80 PO ×2 (21:54→22:15)
[2021-03-13] MEDS ORDERED: ONDA8TAB13 PO ×2 (21:55→22:15)
--- NOTE | 2021-03-13 21:55 | ED GU-Female ---
General Chief Complaint: - Reproductive Stated Complaint: POSSIBLE UTI Nursing Triage Note: PT AMB TO ED BY POV WITH C/O LOWER ABD PAIN AND "STINGING" WHEN SHE URINATES BEGINNING TWO DAYS AGO. DENIES V/D, FEVER. COMPLAINS OF CHRONIC NAUSEA. Source: patient Exam Limitations: no limitations (KALIN CALDERON APRN) History of Present Illness Date Seen by Provider: Mar 13, 2021 Time Seen by Provider: 21:52 Initial Comments To ER with lower abdominal burning and stinging when she urinates that started about 2 days ago. No nausea no vomiting no fevers. She has chronic nausea. Timing/Duration: getting worse Severity/Quality: moderate Location: unknown Radiation: none Activities at Onset: none Associated Symptoms: nausea/vomiting (KALIN CALDERON APRN) Allergies and Home Medications Allergies Coded Allergies: No Known Drug Allergies (Unverified , 06/12/18) Patient Home Medication List Home Medication List Reviewed: Yes (KALIN CALDERON APRN) Cefuroxime Axetil (Cefuroxime) 250 Mg Tablet, 250 MG PO BID Prescribed by: KALIN CALDERON on 03/13/21 2215 Last Action: New Order Hydrocodone/Acetaminophen (Hydrocodone-Acetamin 5-325 mg) 1 Each Tablet, 1 TAB PO Q4H PRN for PAIN-MODERATE (5-7) Prescribed by: KEVIN GARCIA on 07/26/19 0935 Hydrocodone/Acetaminophen (Hydrocodone-Acetamin 5-325 mg) 1 Each Tablet, 1 TAB PO Q4H PRN for PAIN-MODERATE (5-7) Prescribed by: KYM LAWRENCE on 05/22/20 2321 Ibuprofen (Ibuprofen) 600 Mg Tablet, 600 MG PO Q6H Prescribed by: KEIVN GARCIA on 07/26/19 0935 Metronidazole (Flagyl) 500 Mg Tablet, 500 MG PO BID Prescribed by: ELVI LOONEY on 07/28/20 1857 Naproxen (Naproxen) 500 Mg Tablet.dr, 500 MG PO BID Prescribed by: MARIAM MENDIETA on 10/12/202345 Nitrofurantoin Monohyd/M-Cryst (Macrobid 100 mg Capsule) 100 Mg Capsule, 1 TAB PO BID Prescribed by: MARIAM MENDIETA on 10/12/202345 Ondansetron (Ondansetron Odt) 4 Mg Tab.rapdis, 4 MG PO TID PRN for NAUSEA-1ST LINE Prescribed by: QIUNCY CONLEY on 07/26/19 1304 Ondansetron (Ondansetron Odt) 4 Mg Tab.rapdis, 4 MG PO Q6H PRN for NAUSEA/VOMITING Prescribed by: KYM LAWRENCE on 05/22/20 2320 Ondansetron (Ondansetron Odt) 8 Mg Tab.rapdis, 8 MG PO Q6H PRN for NAUSEA/ VOMITING Prescribed by: KALIN CALDERON on 02/18/21 1552 Ondansetron (Ondansetron Odt) 8 Mg Tab.rapdis, 8 MG PO Q6H PRN for NAUSEA/VOMITING Prescribed by: KALIN CALDERON on 03/13/21 2215 Last Action: New Order Phenazopyridine HCl (Pyridium) 200 Mg Tablet, 1 TAB PO TID Prescribed by: MARIAM MENDIETA on 10/12/20 2346 Review of Systems Review of Systems Constitutional: see HPI EENTM: see HPI Respiratory: no symptoms reported Cardiovascular: no symptoms reported Genitourinary: see HPI Musculoskeletal: no symptoms reported Skin: no symptoms reported Psychiatric/Neurological: No Symptoms Reported Endocrine: No Symptoms Reported (KALIN CALDERON APRN) Past Ffjmmvz-Zfexor-Bcwzuh Hx Patient Social History Tobacco Use?: No Use of E-Cig and/or Vaping dev: Yes E-Cig or Vaping type used: Nicotine Use of E-Cig and/or Vaping Kev: Current Everyday User Substance use?: Yes Substance type: Marijuana Substance frequency: Daily Alcohol Use?: No Pt feels they are or have been: No (KALIN CALDERON APRN) Immunizations Up To Date Tetanus Booster (TDap): Less than 5yrs PED Vaccines UTD: No Influenza Vaccine Up-to-Date: Yes; Up-to-Date First/Initial COVID19 Vaccinat: N/A (KALIN CALDERON APRN) Seasonal Allergies Seasonal Allergies: Yes (KALIN CALDERON APRN) Past Medical History Surgery/Hospitalization HX: HX: FACTOR V SX: ANA, UMBILICAL HERNIA REPAIR, TONSILLECTOMY/ADENOIDECTOMY; LAPAROSCOPIC RIGHT OVARIAN CYSTECTOMY 07/26/[address] GARCIA Surgeries: Yes (UMBILICAL HERNIA REPAIR WITH CHOLECYSTECTOMY; RIGHT OVARIAN CYST REMOVED) Abdominal, Adenoidectomy, Gallbladder, Tonsillectomy Respiratory: Yes Asthma Currently Using CPAP: No Currently Using BIPAP: No Cardiac: No Neurological: No Reproductive Disorders: Yes (CHRONIC PELVIC/RLQ PAIN ) Female Reproductive Disorders: Denies, Ovarian Cyst Sexually Transmitted Disease: No HIV/AIDS: No Genitourinary: No Gastrointestinal: Yes (CHRONIC PELVIC/RLQ PAIN; CHOLECYSTECTOMY W/ UMBILICAL HERNIA REPAIR) Abdominal Hernia, Gall Bladder Disease Musculoskeletal: No Endocrine: No HEENT: No Cancer: No Psychosocial: Yes Eating Disorder, Anxiety, PTSD, Bipolar, Depression Integumentary: Yes (TATTOOS) 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) Adverse Reaction/Blood Tranf: No (KALIN CALDERON APRN) Family Medical History BIPOLAR 19 FATHER Diabetes mellitus 19 FATHER FH: factor V Leiden mutation M GRANDMOTHER FH: heart disease GRANDPARENT FH: hyperlipidemia 19 MOTHER GRANDPARENT Factor V deficiency 19 MOTHER G8 BROTHER G8 BROTHER G8 BROTHER G8 SISTER G8 SISTER Hypertension 19 FATHER GRANDPARENT IBS 19 FATHER Seizure disorder 19 FATHER Tuberculosis 19 FATHER Physical Exam Vital Signs Vital Signs - First Documented 03/13/21 21:18 Temp 36.4 Pulse 79 Resp 16 B/P (MAP) 114/81 (92) Pulse Ox 99 O2 Delivery Room Air (TACHO MENDIETAA Chula DO) Vital Signs Capillary Refill : Less Than 3 Seconds (KALIN CALDERON APRN) Height, Weight, BMI Height: 5'0" Weight: 105lbs. 0.0oz. [id number]; 16.00 BMI Method:Stated General Appearance: WD/WN, no apparent distress HEENT: PERRL/EOMI, normal ENT inspection Respiratory: no respiratory distress, no accessory muscle use Gastrointestinal: normal bowel sounds, non tender, soft Extremities: normal range of motion, non-tender Neurologic/Psychiatric: alert, normal mood/affect, oriented x 3 Skin: normal color, warm/dry (KALIN CALDERON APRN) Progress/Results/Core Measures Suspected Sepsis SIRS Temperature: Pulse: 79 Respiratory Rate: 16 Blood Pressure 114 /81 Mean: 92 (KALIN CALDERON APRN) Results/Orders Lab Results Laboratory Tests Test 03/13/21 21:21 Range/Units Urine Color YELLOW Urine Clarity CLEAR Urine pH 8.0 5-9 Urine Specific [place] 1.020 1.016-1.022 Urine Protein NEGATIVE NEGATIVE Urine Glucose (UA) NEGATIVE NEGATIVE Urine Ketones NEGATIVE NEGATIVE Urine Nitrite NEGATIVE NEGATIVE Urine Bilirubin NEGATIVE NEGATIVE Urine Urobilinogen 0.2 < = 1.0 MG/DL Urine Leukocyte Esterase 1+ H NEGATIVE Urine RBC (Auto) 1+ H NEGATIVE Urine RBC 0-2 /HPF Urine WBC 10-25 H /HPF Urine Crystals PRESENT H /LPF Urine Amorphous Sediment FEW JERONIMO PHOSPHATE H /LPF Urine Bacteria FEW H /HPF Urine Casts NONE /LPF Urine Mucus NEGATIVE /LPF Urine Culture Indicated YES Urine Test NEGATIVE NEGATIVE (MARIAM MENDIETA DO) Medications Given in ED Current Medications Medications Dose Ordered Sig/Arya Route Start Time Stop Time Status Last Admin Dose Admin Cefdinir 300 mg ONCE ONCE PO 03/13/21 22:00 03/13/21 22:01 DC 03/13/21 22:09 300 MG Ondansetron HCl 4 mg ONCE ONCE PO 03/13/21 22:00 03/13/21 22:01 DC 03/13/21 22:10 4 MG (TACHO MENDIETAA Chula RANDOLPH) Vital Signs/I&O 03/13/21 21:18 Temp 36.4 Pulse 79 Resp 16 B/P (MAP) 114/81 (92) Pulse Ox 99 O2 Delivery Room Air (TACHO MENDIETAA Chula RANDOLPH) Vital Signs/I&O Capillary Refill : Less Than 3 Seconds (KAILN CALDERON APRN) Blood Pressure Mean: 92 Departure Impression Primary Impression: UTI (urinary tract infection) Disposition: 01 HOME, SELF-CARE Condition: Stable Departure-Patient Inst. Decision time for Depature: 21:53 (KALIN CALDERON APRN) Referrals: DEVIN COUGHLIN MD (PCP/Family) Primary Care Physician Patient Instructions: Urinary Tract Infection, Adult (DC) Add. Discharge Instructions: 1. Return to ER for any concerns. Follow-up with your doctor next week. Antibiotics and nausea medication as directed. All discharge instructions reviewed with patient and/or family. Voiced understanding. Scripts Ondansetron (Ondansetron Odt) 8 Mg Tab.rapdis 8 MG PO Q6H PRN for NAUSEA/VOMITING, #10 TAB . Prov: KALIN CALDERON APRN 03/13/21 Cefuroxime Axetil (Cefuroxime) 250 Mg Tablet 250 MG PO BID, #10 TAB . Prov: KALIN CALDERON APRN 03/13/21 Work/School Note: Work Release Form Date Seen in the Emergency Department: Mar 13, 2021 Return to Work: Mar 14, 2021 ATTENDING PHYSICIAN NOTE: I WAS PHYSICALLY PRESENT ER PHYSICIAN WHEN THIS PATIENT WAS IN ER, BUT I WAS NOT INVOLVED IN ANY DECISION MAKING OR ANY CARE OF THIS PATIENT. (MARIAM MENDIETA DO) KALIN CALDERON APRN Mar 13, 2021 21:55 MARIAM MENDIETA DO Mar 14, 2021 01:22
[2021-03-13] MEDS ORDERED: CEFDINIR 300 MG (OMNICEF) CAP PO ONE (22:00)
[2021-03-13] MEDS ORDERED: ONDANSETRON 4 MG (ZOFRAN) ORAL DISSOLVE TAB PO ONE (22:00)
== END 2021-03-13 22:12 | disposition home or self-care (01) ==
LOC: EDUNIT# 20:31 → ER 20:32
DX: N39.0 Urinary tract infection, site not specified (principal); J45.909 Unspecified asthma, uncomplicated; F17.290 Nicotine dependence, other tobacco product, uncomplicated
CPT/HCPCS: 81000; 84703; 87077; 87088; 99283

== ENCOUNTER 2021-03-27 16:55 | Emergency (ER) | payer MEDICAID ==
[~2021-03-27] VITALS: Ht 152 cm; Wt 44.0 kg
[2021-03-27 17:29] LABS: BILIRUBIN,URINE NEGATIVE (NEGATIVE); CLARITY,URINE CLEAR; COLOR,URINE YELLOW; GLUCOSE, URINE (UA) NEGATIVE (NEGATIVE); KETONES,URINE TRACE (NEGATIVE); LEUKOCYTE ESTERASE ,URINE NEGATIVE (NEGATIVE); NITRITE,URINE NEGATIVE (NEGATIVE); PROTEIN,URINE NEGATIVE (NEGATIVE)
[2021-03-27 17:42] LABS: BACTERIA,URINE LARGE /HPF; RBC,URINE 0-2 /HPF
--- NOTE | 2021-03-27 18:25 | ED Back Pain ---
General Chief Complaint: Back Problems Stated Complaint: LOWER BACK PAIN Nursing Triage Note: PT AMB TO ER WITH C/O SEVERE BACK PAIN FOR 1 WEEK. PT SAW PCP YESTERDAY BUT DID NOT ADDRESS THE BACK PAIN. PT TRIED TAKING TYLENOL AND IBUPROFEN WITHOUT RELIEF Source of Information: Patient History of Present Illness Date Seen by Provider: Mar 27, 2021 Time Seen by Provider: 18:14 Initial Comments PT ARRIVES VIA POV FROM HOME C/O LOWER BACK PAIN X 1 WEEK NO RADIATION OF PAIN PAIN IS WORSE WITH MOVEMENT NO INJURY NO PARESTHESIAS OR MOTOR DEFICITS NO LOSS OF BOWEL/BLADDER CONTROL NO URINARY SYMPTOMS NO FEVER HAS HAD NAUSEA FOR THE LAST 2 WEEKS, NO VOMITING. NO DIARRHEA OR CONSTIPATION LMP 02/21/21. NO CONTROL. HOME TEST NEGATIVE 2 DAYS AGO HAD A ROUTINE APPOINTMENT WITH DR. DEVIN COUGHLIN YESTERDAY FOR MEDICATION REFILLS, BUT DID NOT DISCUSS THIS PROBLEM AND NO TESTS WERE DONE. TOOK IBUPROFEN X 1 YESTERDAY, NO RELIEF HAS NOT TAKEN ANYTHING ELSE FOR SYMPTOMS NO DIFFERENT TODAY HAS NOT SOUGHT CARE UNTIL TODAY NO HISTORY OF SIMILAR PT WITH A MULTITUDE OF VISITS, VARIOUS COMPLAINTS Other Comments PCP: DR. DEVIN COUGHLIN Allergies and Home Medications Allergies Coded Allergies: Cephalosporins (Verified Allergy, Unknown, 03/15/21) Patient Home Medication List Home Medication List Reviewed: Yes Cefuroxime Axetil (Cefuroxime) 250 Mg Tablet, 250 MG PO BID Prescribed by: KALIN CALDERON on 03/13/21 2215 Hydrocodone/Acetaminophen (Hydrocodone-Acetamin 5-325 mg) 1 Each Tablet, 1 TAB PO Q4H PRN for PAIN-MODERATE (5-7) Prescribed by: KEVIN GARCIA on 07/26/19 0935 Hydrocodone/Acetaminophen (Hydrocodone-Acetamin 5-325 mg) 1 Each Tablet, 1 TAB PO Q4H PRN for PAIN-MODERATE (5-7) Prescribed by: KYM LAWRENCE on 05/22/20 2321 Ibuprofen (Ibuprofen) 600 Mg Tablet, 600 MG PO Q6H Prescribed by: KEVIN GARCIA on 07/26/19 0935 Metronidazole (Flagyl) 500 Mg Tablet, 500 MG PO BID Prescribed by: ELVI LOONEY on 07/28/20 1857 Naproxen (Naproxen) 500 Mg Tablet.dr, 500 MG PO BID Prescribed by: MARIAM MENDIETA on 10/12/20 2346 Nitrofurantoin Monohyd/M-Cryst (Macrobid 100 mg Capsule) 100 Mg Capsule, 1 TAB PO BID Prescribed by: MARIAM MENDIETA on 10/12/20 2346 Nitrofurantoin Monohyd/M-Cryst (Macrobid 100 mg Capsule) 100 Mg Capsule, 1 TAB PO BID Prescribed by: MARIAM MENDIETA on 03/27/21 1827 Ondansetron (Ondansetron Odt) 4 Mg Tab.rapdis, 4 MG PO TID PRN for NAUSEA-1ST LINE Prescribed by: QUINCY CONLEY on 07/26/19 1304 Ondansetron (Ondansetron Odt) 4 Mg Tab.rapdis, 4 MG PO Q6H PRN for NAUSEA/VOMITING Prescribed by: KYM LAWRENCE on 05/22/20 2320 Ondansetron (Ondansetron Odt) 8 Mg Tab.rapdis, 8 MG PO Q6H PRN for NAUSEA/VOMITING Prescribed by: KALIN CALDERON on 02/18/21 1552 Ondansetron (Ondansetron Odt) 8 Mg Tab.rapdis, 8 MG PO Q6H PRN for NAUSEA/VOMI TING Prescribed by: KALIN CALDERON on 03/13/21 2215 Phenazopyridine HCl (Pyridium) 200 Mg Tablet, 1 TAB PO TID Prescribed by: MARIAM MENDIETA on 10/12/20 2346 Phenazopyridine HCl (Pyridium) 200 Mg Tablet, 1 TAB PO TID Prescribed by: MARIAM MENDIETA on 03/27/21 1837 Review of Systems Constitutional: no symptoms reported Respiratory: no symptoms reported Cardiovascular: no symptoms reported Gastrointestinal: see HPI, loss of appetite (CHRONIC FOR YEARS--OFTEN DOES NOT EAT ALL DAY), nausea; No vomiting Genitourinary: no symptoms reported LMP: Feb 21, 2021 Control/STD Prophylaxis: None Musculoskeletal: see HPI, back pain Skin: no symptoms reported Psychiatric/Neurological: No Symptoms Reported Past Ruamytk-Oseuzk-Iuckls Hx Patient Social History Tobacco Use?: No Use of E-Cig and/or Vaping dev: Yes E-Cig or Vaping type used: Nicotine Use of E-Cig and/or Vaping Kev: Current Everyday User Substance use?: Yes Substance type: Marijuana Substance frequency: Couple times a week Alcohol Use?: No Pt feels they are or have been: No Immunizations Up To Date Tetanus Booster (TDap): Less than 5yrs PED Vaccines UTD: No Influenza Vaccine Up-to-Date: No; Not Current First/Initial COVID19 Vaccinat: N/A Second COVID19 Vaccination Camacho: N/A Third COVID19 Vaccination Date: N/A Seasonal Allergies Seasonal Allergies: Yes Past Medical History Surgery/Hospitalization HX: HX: FACTOR VSX: ANA, UMBILICAL HERNIA REPAIR, TONSILLECTOMY/ADENOIDECTOMY;LAPAROSCOPIC RIGHT OVARIAN CYSTECTOMY 07/26/[address] GARCIA DEPRESSION, ANXIETY Surgeries: Yes (UMBILICAL HERNIA REPAIR WITH CHOLECYSTECTOMY; RIGHT OVARIAN CYST REMOVED) Abdominal, Adenoidectomy, Gallbladder, Tonsillectomy Respiratory: Yes Asthma Currently Using CPAP: No Currently Using BIPAP: No Cardiac: No Neurological: No Last Menstrual Period: Feb 21, 2021 Reproductive Disorders: Yes (CHRONIC PELVIC/RLQ PAIN ) Female Reproductive Disorders: Denies, Ovarian Cyst Sexually Transmitted Disease: No HIV/AIDS: No Genitourinary: Yes Bladder Infection, UTI-Chronic Gastrointestinal: Yes (CHRONIC PELVIC/RLQ PAIN; CHOLECYSTECTOMY W/ UMBILICAL HERNIA REPAIR;) Abdominal Hernia, Gall Bladder Disease Musculoskeletal: No Endocrine: No HEENT: No Cancer: No Psychosocial: Yes Eating Disorder, Anxiety, PTSD, Bipolar, Depression Integumentary: Yes (TATTOOS) 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) Adverse Reaction/Blood Tranf: No Family Medical History BIPOLAR 19 FATHER Diabetes mellitus 19 FATHER FH: factor V Leiden mutation M GRANDMOTHER FH: heart disease GRANDPARENT FH: hyperlipidemia 19 MOTHER GRANDPARENT Factor V deficiency 19 MOTHER G8 BROTHER G8 BROTHER G8 BROTHER G8 SISTER G8 SISTER Hypertension 19 FATHER GRANDPARENT IBS 19 FATHER Seizure disorder 19 FATHER Tuberculosis 19 FATHER CHRONIC LOSS OF APPETITE, AND OFTEN DOES NOT EAT ALL DAY Physical Exam Vital Signs Vital Signs - First Documented 03/27/21 17:20 Temp 36.4 Pulse 83 Resp 17 B/P (MAP) 128/77 (94) Pulse Ox 100 O2 Delivery Room Air Capillary Refill : Height, Weight, BMI Height: 5'0" Weight: 105lbs. 0.0oz. 47.833992zf; 19.00 BMI Method:Stated General Appearance: No Apparent Distress, WD/WN, Thin (VERY THIN) Neck: Normal Inspection Cardiovascular: Regular Rate, Rhythm, No Murmur Respiratory: Normal Breath Sounds, No Accessory Muscle Use, No Respiratory Distress Gastrointestinal: Normal Bowel Sounds, No Organomegaly, Soft, Tenderness (MILD SUPRAPUBIC TENDERNESS) Back: No CVA Tenderness, No Vertebral Tenderness, Other (MILD BILATERAL LUMBAR PARAVERTEBRAL MUSCLE TENDERNESS. NO BONY TENDERNESS) Extremity: Normal Inspection Neurologic/Psychiatric: Alert, Oriented x3, No Motor/Sensory Deficits, safety consultant II- XII Norm as Tested Skin: Normal Color (PT IS DARK SKINNED), Warm/Dry, Tattoos/Piercings (EXTENSIVE TATTOOS) Progress/Results/Core Measures Results/Orders Lab Results Laboratory Tests Test 03/27/21 17:20 Range/Units Urine Color YELLOW Urine Clarity CLEAR Urine pH 6.0 5-9 Urine Specific [place] 1.020 1.016-1.022 Urine Protein NEGATIVE NEGATIVE Urine Glucose (UA) NEGATIVE NEGATIVE Urine Ketones TRACE H NEGATIVE Urine Nitrite NEGATIVE NEGATIVE Urine Bilirubin NEGATIVE NEGATIVE Urine Urobilinogen 0.2 < = 1.0 MG/DL Urine Leukocyte Esterase NEGATIVE NEGATIVE Urine RBC (Auto) TRACE-I H NEGATIVE Urine RBC 0-2 /HPF Urine WBC 2-5 /HPF Urine Squamous Epithelial Cells 10-25 H /HPF Urine Crystals NONE /LPF Urine Bacteria LARGE H /HPF Urine Casts NONE /LPF Urine Mucus MODERATE H /LPF Urine Culture Indicated NO My Orders Orders - MARIAM MENDIETA DO Urine Culture (03/27/21 18:33) Vital Signs/I&O 03/27/21 17:20 Temp 36.4 Pulse 83 Resp 17 B/P (MAP) 128/77 (94) Pulse Ox 100 O2 Delivery Room Air Blood Pressure Mean: 94 Departure Impression Primary Impression: UTI (urinary tract infection) Disposition: HOME, SELF-CARE Condition: Stable Departure-Patient Inst. Decision time for Depature: 18:25 Referrals: DEVIN COUGHLIN MD (PCP/Family) Primary Care Physician Patient Instructions: Low Back Pain (DC), Urinary Tract Infection, Adult (DC) Add. Discharge Instructions: TYLENOL AND MOTRIN NEEDED FOR PAIN LOTS OF CLEAR LIQUIDS--NO COFFEE, POP OR TEA FOLLOW UP WITH DR. COUGHLIN THIS WEEK FOR FURTHER CARE All discharge instructions reviewed with patient and/or family. Voiced understanding. Scripts Phenazopyridine HCl (Pyridium) 200 Mg Tablet 1 TAB PO TID, #15 TAB Prov: MARIAM MENDIETA DO 03/27/21 Nitrofurantoin Monohyd/M-Cryst (Macrobid 100 mg Capsule) 100 Mg Capsule 1 TAB PO BID, #20 CAP Prov: MARIAM MENDIETA DO 03/27/21 MARIAM MENDIETA DO Mar 27, 2021 18:25
[2021-03-27] MEDS ORDERED: NITR-65 PO (18:27)
[2021-03-27] MEDS ORDERED: DOXY1TAB3 PO (18:27)
[2021-03-27] MEDS ORDERED: PREN-8 PO (18:27)
[2021-03-27] MEDS ORDERED: PHEN-640 PO (18:37)
[2021-03-27 18:42] VITALS: BP 121/75
== END 2021-03-27 18:43 | disposition home or self-care (01) ==
LOC: EDUNIT# 16:55 → ER 16:56
DX: N39.0 Urinary tract infection, site not specified (principal); J45.909 Unspecified asthma, uncomplicated; F17.290 Nicotine dependence, other tobacco product, uncomplicated
CPT/HCPCS: 81000; 84703; 87088; 99282

== ENCOUNTER 2021-05-01 16:26 | Emergency (ER) | payer MEDICAID ==
[~2021-05-01] VITALS: Ht 152 cm; Wt 43.0 kg
[~2021-05-01 16:26] MED LIST changes: +DOXY1TAB3 PO; +PREN-8 PO
[2021-05-01 16:45] VITALS: BP 111/71
--- NOTE | 2021-05-01 16:58 | ED Back Pain ---
General Chief Complaint: Back Problems Stated Complaint: BACK PAIN, ABDOMINAL PAIN Nursing Triage Note: ARRIVED VIA AMB TO ROOM 07. COMPLAINS OF BACK PAIN WITH HER PERIODS SINCE SHE WS 15. HAS NOT TAKEN ANYTHING FOR IT TODAY. WOULD LIKE A MRI FOR THE PAIN. Source of Information: Patient Exam Limitations: No Limitations History of Present Illness Date Seen by Provider: May 01, 2021 Time Seen by Provider: 16:56 Initial Comments To ER by her mother with reports of lower midline abdominal pain and diffuse back pain that occurs every time that she has had a period for the past several years. It got worse when she her menstrual cycle today. She rates her pain at 10 out of 10 but has taken nothing for it. She has seen primary care, [facility], is scheduled to see gynecology in May. She has factor V Leiden so she cannot take control. Location: Other Timing/Duration: 1-2 Days Severity: Moderate Method of Injury: Unknown Associated Symptoms: denies symptoms Allergies and Home Medications Allergies Coded Allergies: Cephalosporins (Verified Allergy, Unknown, 03/15/21) Patient Home Medication List Home Medication List Reviewed: Yes Cefuroxime Axetil (Cefuroxime) 250 Mg Tablet, 250 MG PO BID Prescribed by: KALIN CALDERON on 03/13/21 2215 Hydrocodone/Acetaminophen (Hydrocodone-Acetamin 5-325 mg) 1 Each Tablet, 1 TAB PO Q4H PRN for PAIN-MODERATE (5-7) Prescribed by: KEVIN GARCIA on 07/26/19 0935 Hydrocodone/Acetaminophen (Hydrocodone-Acetamin 5-325 mg) 1 Each Tablet, 1 TAB PO Q4H PRN for PAIN-MODERATE (5-7) Prescribed by: KYM LAWRENCE on 05/22/20 2321 Ibuprofen (Ibuprofen) 600 Mg Tablet, 600 MG PO Q6H Prescribed by: KEVIN GARCIA on 07/26/19 0935 Metronidazole (Flagyl) 500 Mg Tablet, 500 MG PO BID Prescribed by: ELVI LOONEY on 07/28/20 1857 Naproxen (Naproxen) 500 Mg Tablet.dr, 500 MG PO BID Prescribed by: MARIAM MENDIETA on 10/12/20 2346 Nitrofurantoin Monohyd/M-Cryst (Macrobid 100 mg Capsule) 100 Mg Capsule, 1 TAB PO BID Prescribed by: MARIAM MENDIETA on 10/12/20 2346 Nitrofurantoin Monohyd/M-Cryst (Macrobid 100 mg Capsule) 100 Mg Capsule, 1 TAB PO BID Prescribed by: MARIAM MENDIETA on 03/27/21 1827 Ondansetron (Ondansetron Odt) 4 Mg Tab.rapdis, 4 MG PO TID PRN for NAUSEA-1ST LINE Prescribed by: QUINCY CONLEY on 07/26/19 1304 Ondansetron (Ondansetron Odt) 4 Mg Tab.rapdis, 4 MG PO Q6H PRN for NAUSEA/ VOMITING Prescribed by: KYM LAWRENCE on 05/22/20 2320 Ondansetron (Ondansetron Odt) 8 Mg Tab.rapdis, 8 MG PO Q6H PRN for NAUSEA/VOMITING Prescribed by: KALIN CALDERON on 02/18/21 1552 Ondansetron (Ondansetron Odt) 8 Mg Tab.rapdis, 8 MG PO Q6H PRN for NAUSEA/VOMITING Prescribed by: KALIN CALDERON on 03/13/21 2215 Phenazopyridine HCl (Pyridium) 200 Mg Tablet, 1 TAB PO TID Prescribed by: MARIAM MENDIETA on 10/12/20 2346 Phenazopyridine HCl (Pyridium) 200 Mg Tablet, 1 TAB PO TID Prescribed by: MARIAM MENDIETA on 03/27/21 1837 Review of Systems Constitutional: see HPI EENTM: see HPI Respiratory: no symptoms reported Cardiovascular: no symptoms reported Genitourinary: no symptoms reported Musculoskeletal: see HPI, back pain Skin: no symptoms reported Psychiatric/Neurological: No Symptoms Reported Past Qwbwryu-Cpgztc-Isrnue Hx Patient Social History Smoking Status: Never a Smoker Substance use?: Yes Substance type: Marijuana Alcohol Use?: No Immunizations Up To Date Tetanus Booster (TDap): Less than 5yrs PED Vaccines UTD: No First/Initial COVID19 Vaccinat: N/A Second COVID19 Vaccination Camacho: N/A Third COVID19 Vaccination Date: N/A Seasonal Allergies Seasonal Allergies: Yes Past Medical History Surgery/Hospitalization HX: HX: FACTOR VSX: ANA, UMBILICAL HERNIA REPAIR, TONSILLECTOMY/ADENOIDECTOMY;LAPAROSCOPIC RIGHT OVARIAN CYSTECTOMY 07/26/[address] GARCIA DEPRESSION, ANXIETY Surgeries: Yes (UMBILICAL HERNIA REPAIR WITH CHOLECYSTECTOMY; RIGHT OVARIAN CYST REMOVED) Abdominal, Adenoidectomy, Gallbladder, Tonsillectomy Respiratory: Yes Asthma Currently Using CPAP: No Currently Using BIPAP: No Cardiac: No Neurological: No Reproductive Disorders: Yes (CHRONIC PELVIC/RLQ PAIN ) Female Reproductive Disorders: Denies, Ovarian Cyst Sexually Transmitted Disease: No HIV/AIDS: No Genitourinary: Yes Bladder Infection, UTI-Chronic Gastrointestinal: Yes (CHRONIC PELVIC/RLQ PAIN; CHOLECYSTECTOMY W/ UMBILICAL HERNIA REPAIR;) Abdominal Hernia, Gall Bladder Disease Musculoskeletal: No Endocrine: No HEENT: No Cancer: No Psychosocial: Yes Eating Disorder, Anxiety, PTSD, Bipolar, Depression Integumentary: Yes (TATTOOS) 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) Adverse Reaction/Blood Tranf: No Family Medical History BIPOLAR 19 FATHER Diabetes mellitus 19 FATHER FH: factor V Leiden mutation M GRANDMOTHER FH: heart disease GRANDPARENT FH: hyperlipidemia 19 MOTHER GRANDPARENT Factor V deficiency 19 MOTHER G8 BROTHER G8 BROTHER G8 BROTHER G8 SISTER G8 SISTER Hypertension 19 FATHER GRANDPARENT IBS 19 FATHER Seizure disorder 19 FATHER Tuberculosis 19 FATHER CHRONIC LOSS OF APPETITE, AND OFTEN DOES NOT EAT ALL DAY Physical Exam Vital Signs Vital Signs - First Documented 05/01/21 16:45 Temp 36.3 Pulse 95 Resp 16 B/P (MAP) 111/71 (84) Pulse Ox 97 O2 Delivery Room Air Capillary Refill : Less Than 3 Seconds Height, Weight, BMI Height: 5'0" Weight: 105lbs. 0.0oz. 47.556082mb; 18.00 BMI Method:Stated General Appearance: No Apparent Distress, WD/WN, Other (Flat affect slow verbal responses) Neck: Full Range of Motion, Normal Inspection Respiratory: Normal Breath Sounds, No Accessory Muscle Use, No Respiratory Distress Gastrointestinal: Normal Bowel Sounds, Non Tender, Soft Back: Normal Inspection Extremity: Normal Capillary Refill, Normal Inspection Neurologic/Psychiatric: Alert, Oriented x3 Skin: Normal Color, Warm/Dry Progress/Results/Core Measures Results/Orders Lab Results Laboratory Tests Test 05/01/21 16:57 Range/Units White Blood Count 9.3 4.3-11.0 10^3/uL Red Blood Count 4.55 3.80-5.11 10^6/uL Hemoglobin 12.9 11.5-16.0 g/dL Hematocrit 39 35-52 % Mean Corpuscular Volume 85 80-99 fL Mean Corpuscular Hemoglobin 28 25-34 pg Mean Corpuscular Hemoglobin Concent 33 32-36 g/dL Red Cell Distribution Width 15.4 H 10.0-14.5 % Platelet Count 291 130-400 10^3/uL Mean Platelet Volume 8.8 L 9.0-12.2 fL Immature Granulocyte % (Auto) 0 % Neutrophils (%) (Auto) 70 42-75 % Lymphocytes (%) (Auto) 22 12-44 % Monocytes (%) (Auto) 7 0-12 % Eosinophils (%) (Auto) 1 0-10 % Basophils (%) (Auto) 0 0-10 % Neutrophils # (Auto) 6.5 1.8-7.8 10^3/uL Lymphocytes # (Auto) 2.0 1.0-4.0 10^3/uL Monocytes # (Auto) 0.6 0.0-1.0 10^3/uL Eosinophils # (Auto) 0.1 0.0-0.3 10^3/uL Basophils # (Auto) 0.0 0.0-0.1 10^3/uL Immature Granulocyte # (Auto) 0.0 0.0-0.1 10^3/uL Urine Color RED H Urine Clarity SL CLOUDY Urine pH 6.5 5-9 Urine Specific [place] 1.025 H 1.016-1.022 Urine Protein 1+ H NEGATIVE Urine Glucose (UA) NEGATIVE NEGATIVE Urine Ketones NEGATIVE NEGATIVE Urine Nitrite NEGATIVE NEGATIVE Urine Bilirubin NEGATIVE NEGATIVE Urine Urobilinogen 0.2 < = 1.0 MG/DL Urine Leukocyte Esterase 1+ H NEGATIVE Urine RBC (Auto) 3+ H NEGATIVE Urine RBC >100 H /HPF Urine WBC 0-2 /HPF Urine Crystals NONE /LPF Urine Bacteria NEGATIVE /HPF Urine Casts NONE /LPF Urine Mucus NEGATIVE /LPF Urine Culture Indicated NO Urine Test NEGATIVE NEGATIVE Sodium Level 141 135-145 MMOL/L Potassium Level 4.2 3.6-5.0 MMOL/L Chloride Level 106 98-107 MMOL/L Carbon Dioxide Level 25 21-32 MMOL/L Anion Gap 10 5-14 MMOL/L Blood Urea Nitrogen 8 7-18 MG/DL Creatinine 0.76 0.60-1.30 MG/DL Estimat Glomerular Filtration Rate 114 BUN/Creatinine Ratio 11 Glucose Level 88 70-105 MG/DL Calcium Level 9.5 8.5-10.1 MG/DL Corrected Calcium 9.3 8.5-10.1 MG/DL Total Bilirubin 0.4 0.1-1.0 MG/DL Aspartate Amino Transf (AST/SGOT) 15 5-34 U/L Alanine Aminotransferase (ALT/SGPT) 11 0-55 U/L Alkaline Phosphatase 68 40-136 U/L C-Reactive Protein High Sensitivity 0.13 0.00-0.50 MG/DL Total Protein 7.4 6.4-8.2 GM/DL Albumin 4.3 3.2-4.5 GM/DL Urine Opiates Screen NEGATIVE NEGATIVE Urine Oxycodone Screen NEGATIVE NEGATIVE Urine Methadone Screen NEGATIVE NEGATIVE Urine Propoxyphene Screen NEGATIVE NEGATIVE Urine Barbiturates Screen NEGATIVE NEGATIVE Ur Tricyclic Antidepressants Screen NEGATIVE NEGATIVE Urine Phencyclidine Screen NEGATIVE NEGATIVE Urine Amphetamines Screen NEGATIVE NEGATIVE Urine Methamphetamines Screen NEGATIVE NEGATIVE Urine Benzodiazepines Screen POSITIVE H NEGATIVE Urine Cocaine Screen NEGATIVE NEGATIVE Urine Cannabinoids Screen POSITIVE H NEGATIVE My Orders Orders - KALIN CALDERON APRN Cbc With Automated Diff (05/01/21 16:56) Comprehensive Metabolic Panel (05/01/21 16:56) Hs C Reactive Protein (05/01/21 16:56) Acetaminophen Tablet (Tylenol Tablet) (05/01/21 17:00) Ibuprofen Tablet (Motrin Tablet) (05/01/21 17:00) Drug Screen Stat (Urine) (05/01/21 17:00) Us Non Ob Pelvis Comp/Transvag (05/01/21 17:03) Medications Given in ED Current Medications Medications Dose Ordered Sig/Arya Route Start Time Stop Time Status Last Admin Dose Admin Acetaminophen 1,000 mg ONCE ONCE PO 05/01/21 17:00 05/01/21 17:01 DC 05/01/21 17:07 1,000 MG Ibuprofen 800 mg ONCE ONCE PO 05/01/21 17:00 05/01/21 17:01 DC 05/01/21 17:07 800 MG Vital Signs/I&O 05/01/21 16:45 Temp 36.3 Pulse 95 Resp 16 B/P (MAP) 111/71 (84) Pulse Ox 97 O2 Delivery Room Air Blood Pressure Mean: 84 Departure Impression Primary Impression: Menstrual pain Disposition: 01 HOME, SELF-CARE Condition: Stable Departure-Patient Inst. Decision time for Depature: 18:09 Referrals: DEVIN COUGHLIN MD (PCP/Family) Primary Care Physician Patient Instructions: Acute Pain, Adult Scripts Hydrocodone/Acetaminophen (Hydrocodone-Acetamin 5-325 mg) 1 Each Tablet 1 TAB PO Q4H PRN for PAIN-MODERATE (5-7), #5 TAB Prov: KALIN CALDERON APRN 05/01/21 KALIN CALDERON APRN May 01, 2021 16:58
[2021-05-01] MEDS ORDERED: ACETAMINOPHEN 500 MG TAB (TYLENOL) PO ONE (17:00)
[2021-05-01] MEDS ORDERED: IBUPROFEN 800 MG (MOTRIN) TAB PO ONE (17:00)
[2021-05-01 17:06] LABS: BASOPHILS % (AUTO) 0 % (0-10); EOSINOPHILS # (AUTO) 0.1 10^3/uL (0.0-0.3); EOSINOPHILS % (AUTO) 1 % (0-10); HEMATOCRIT 39 % (35-52); HEMOGLOBIN 12.9 g/dL (11.5-16.0); LYMPHOCYTES % (AUTO) 22 % (12-44); MEAN CORPUSCULAR HEMOGLOBIN 28 pg (25-34); MEAN CORPUSCULAR HGB CONC 33 g/dL (32-36); MEAN CORPUSCULAR VOLUME 85 fL (80-99); MEAN PLATELET VOLUME 8.8 fL (9.0-12.2); MONOCYTES # (AUTO) 0.6 10^3/uL (0.0-1.0); MONOCYTES % (AUTO) 7 % (0-12); NEUTROPHILS # (AUTO) 6.5 10^3/uL (1.8-7.8); NEUTROPHILS % (AUTO) 70 % (42-75); PLATELET COUNT 291 10^3/uL (130-400); WHITE BLOOD COUNT 9.3 10^3/uL (4.3-11.0)
[2021-05-01 17:08] LABS: BILIRUBIN,URINE NEGATIVE (NEGATIVE); CLARITY,URINE SL CLOUDY; COLOR,URINE RED; GLUCOSE, URINE (UA) NEGATIVE (NEGATIVE); KETONES,URINE NEGATIVE (NEGATIVE); LEUKOCYTE ESTERASE ,URINE 1+ (NEGATIVE); NITRITE,URINE NEGATIVE (NEGATIVE); PH,URINE 6.5 (5-9); PROTEIN,URINE 1+ (NEGATIVE)
[2021-05-01 17:12] LABS: HCG,QUALITATIVE URINE NEGATIVE (NEGATIVE)
[2021-05-01 17:20] LABS: ALBUMIN 4.3 GM/DL (3.2-4.5); POTASSIUM 4.2 MMOL/L (3.6-5.0)
[2021-05-01 17:21] LABS: CALCIUM 9.5 MG/DL (8.5-10.1)
[2021-05-01 17:23] LABS: AMPHETAMINE SCREEN, URINE NEGATIVE (NEGATIVE); BARBITURATE SCREEN URINE NEGATIVE (NEGATIVE); BENZODIAZEPINES SCREEN URINE POSITIVE (NEGATIVE); CANNABINOID SCREEN, URINE POSITIVE (NEGATIVE); COCAINE SCREEN URINE NEGATIVE (NEGATIVE); METHAMPHETAMINE SCREEN URINE S NEGATIVE (NEGATIVE); OPIATE SCREEN URINE NEGATIVE (NEGATIVE); TOTAL PROTEIN 7.4 GM/DL (6.4-8.2)
[2021-05-01 17:24] LABS: BILIRUBIN,TOTAL 0.4 MG/DL (0.1-1.0); METHADONE STAT NEGATIVE (NEGATIVE); OXYCODONE STAT NEGATIVE (NEGATIVE); PROPOXYPHENE STAT NEGATIVE (NEGATIVE); TRICYCLIC ANTIDEPRESSANTS SCRE NEGATIVE (NEGATIVE)
[2021-05-01 17:25] LABS: BACTERIA,URINE NEGATIVE /HPF; RBC,URINE >100 /HPF; WBC,URINE 0-2 /HPF
[2021-05-01 17:26] LABS: CREATININE SERUM 0.76 MG/DL (0.60-1.30)
[2021-05-01] MEDS ORDERED: ACHD5005 PO (18:11)
--- NOTE | 2021-05-01 18:23 | Diagnostic Imaging Report ---
PROCEDURE: Pelvic complete, transabdominal and transvaginal sonogram. Limited pelvic Doppler. TECHNIQUE: Multiple real-time grayscale images were obtained of the pelvis in various projections transabdominally and transvaginally. Limited pelvic duplex images were obtained. HISTORY: Suprapubic pain, evaluate for torsion. COMPARISON: None available. FINDINGS: The uterus is retroverted and is normal in size. It measures 6.4 x 3.8 x 5.0 cm. The endometrial stripe measures 2 mm in width. Both ovaries are normal. The right ovary measures 3.5 x 2.0 x 2.2 cm and the left ovary measures 3.5 x 1.6 x 2.5 cm. Duplex images reveal normal arterial inflow to both ovaries. There is a small amount of free pelvic fluid. IMPRESSION: 1. No evidence for torsion. 2. Small amount of free fluid in the pelvis. Dictated by: Dictated on workstation # [id number]
== END 2021-05-01 18:24 | disposition home or self-care (01) ==
LOC: EDUNIT# 16:26 → ER 16:28
DX: N94.6 Dysmenorrhea, unspecified (principal)
CPT/HCPCS: 36415; 76830; 76856; 80053; 80306; 81000; 84703; 85025; 86141

== ENCOUNTER 2021-05-05 11:46 | Emergency (ER) | payer MEDICAID ==
[~2021-05-05] VITALS: Ht 152.4 cm; Wt 45.4 kg
--- NOTE | 2021-05-05 12:24 | ED Abdominal Pain ---
General Chief Complaint: Abdominal/GI Problems Stated Complaint: ABD PAIN/SOB Nursing Triage Note: PT AMB TO FT 2 W C/O MID UPPER ABD PAIN THAT HAS BEEN GOING ON FOR YEARS. PT REPORTS PAIN HAS WORSENED SX THIS AM, PT C/O INABILITY TO STAND UP STRAIGHT OR TAKE A DEEP BREATH. PT A&OX4. Source of Information: Patient, Family Exam Limitations: No Limitations (APARNA LUX MED STUDENT) History of Present Illness Date Seen by Provider: May 05, 2021 Time Seen by Provider: 12:18 Initial Comments Mrs. Clayton is a 21 yo female with PMH of factor 5 leiden that presents to ED today due to abdominal pain and diarrhea. States that she has pain in the upper parts of her abdomen that feels like a burning pain that also radiates into her back. States it hurts to move. Pain started this morning and states she was not having any symptoms yesterday. She has not felt pain like this before. She has not tried taking anything for the pain. She also complains of nausea with no vomiting, hot flashes, SOB, and diarrhea. Denies dysuria, hematuria, bloody stools. She is unsure if she is having any vaginal discharge since she just finished her period. She believes she isn't because of the same reason. Surgical hx significant for cholecystectomy and hernia repair. Mother stated that she has been feeling a sensation of something stuck in her stomach trying to come up. She does not take any antacids. She vapes and uses marijuana. Does not drink alcohol. (APARNA LUX MED STUDENT) Allergies and Home Medications Allergies Coded Allergies: Cephalosporins (Verified Allergy, Unknown, 03/15/21) Patient Home Medication List Home Medication List Reviewed: Yes (ELVI WALLER MD) Cefuroxime Axetil (Cefuroxime) 250 Mg Tablet, 250 MG PO BID Prescribed by: KALIN CALDERON on 03/13/21 2215 Hydrocodone/Acetaminophen (Hydrocodone-Acetamin 5-325 mg) 1 Each Tablet, 1 TAB PO Q4H PRN for PAIN-MODERATE (5-7) Prescribed by: KEVIN GARCIA on 07/26/19 0935 Hydrocodone/Acetaminophen (Hydrocodone-Acetamin 5-325 mg) 1 Each Tablet, 1 TAB PO Q4H PRN for PAIN-MODERATE (5-7) Prescribed by: KYM LAWRENCE on 05/22/20 2321 Hydrocodone/Acetaminophen (Hydrocodone-Acetamin 5-325 mg) 1 Each Tablet, 1 TAB PO Q4H PRN for PAIN-MODERATE (5-7) Prescribed by: KALIN CALDERON on 05/01/21 1811 Ibuprofen (Ibuprofen) 600 Mg Tablet, 600 MG PO Q6H Prescribed by: KEVIN GARCIA on 07/26/19 0935 Metronidazole (Flagyl) 500 Mg Tablet, 500 MG PO BID Prescribed by: ELVI LOONEY on 07/28/20 1857 Naproxen (Naproxen) 500 Mg Tablet.dr, 500 MG PO BID Prescribed by: MARIAM MENDIETA on 10/12/20 2346 Nitrofurantoin Monohyd/M-Cryst (Macrobid 100 mg Capsule) 100 Mg Capsule, 1 TAB PO BID Prescribed by: MARIAM MENDIETA on 10/12/20 2346 Nitrofurantoin Monohyd/M-Cryst (Macrobid 100 mg Capsule) 100 Mg Capsule, 1 TAB PO BID Prescribed by: MARIAM MENDIETA on 03/27/21 1827 Omeprazole (Omeprazole) 20 Mg Capsule.dr, 20 MG PO BID Prescribed by: ELVI LOONEY on 05/05/21 1638 Ondansetron (Ondansetron Odt) 4 Mg Tab.rapdis, 4 MG PO TID PRN for NAUSEA-1ST LINE Prescribed by: QUINCY CONLEY on 07/26/19 1304 Ondansetron (Ondansetron Odt) 4 Mg Tab.rapdis, 4 MG PO Q6H PRN for NAUSEA/VOMITING Prescribed by: KYM LAWRENCE on 05/22/20 2320 Ondansetron (Ondansetron Odt) 8 Mg Tab.rapdis, 8 MG PO Q6H PRN for NAUSEA/VOMITING Prescribed by: KALIN CALDERON on 02/18/21 1552 Ondansetron (Ondansetron Odt) 8 Mg Tab.rapdis, 8 MG PO Q6H PRN for NAUSEA/VOMITING Prescribed by: KALIN CALDERON on 03/13/21 2215 Ondansetron (Ondansetron Odt) 4 Mg Tab.rapdis, 4 MG SL Q4H PRN for NAUSEA/VOMITI NG Prescribed by: ELVI LOONEY on 05/05/21 1638 Phenazopyridine HCl (Pyridium) 200 Mg Tablet, 1 TAB PO TID Prescribed by: MARIAM MENDIETA on 10/12/20 2346 Phenazopyridine HCl (Pyridium) 200 Mg Tablet, 1 TAB PO TID Prescribed by: MARIAM MENDIETA on 03/27/21 183 Sucralfate (Carafate) 1 Gm Tablet, 1 GM PO QID Prescribed by: ELVI LOONEY on 05/05/21 1638 Review of Systems Review of Systems Constitutional: No chills; other (hot flashes ) EENTM: No Blurred Vision, No Double Vision Respiratory: Denies Cough; Shortness of Air; Denies Wheezing Cardiovascular: Denies Chest Pain, Denies Edema, Denies Syncope Gastrointestinal: Abdominal Pain; Denies Constipated; Diarrhea, Nausea; Denies Vomiting; Other (Reflux like symptoms, something stuck in stomach) Genitourinary: Denies Burning, Denies Discharge, Denies Frequency, Denies Hematuria Musculoskeletal: back pain (referred from abdomen); No joint pain Skin: No lesions, No rash Psychiatric/Neurological: Denies Headache, Denies Numbness (APARNA LUX Mr Banana STUDENT) Past [place]-Bligvd-Pqsume Hx Patient Social History Tobacco Use?: No Use of E-Cig and/or Vaping dev: Yes E-Cig or Vaping type used: Nicotine Use of E-Cig and/or Vaping Kev: Current Everyday User Substance use?: Yes Substance type: Marijuana Alcohol Use?: No (APARNA LUX Mr Banana STUDENT) Immunizations Up To Date Tetanus Booster (TDap): Less than 5yrs PED Vaccines UTD: No Influenza Vaccine Up-to-Date: Yes; Up-to-Date First/Initial COVID19 Vaccinat: N/A Second COVID19 Vaccination Camacho: N/A Third COVID19 Vaccination Date: N/A COVID19 Vaccine Electrophysiologist: N/A (APARNA LUX Mr Banana STUDENT) Seasonal Allergies Seasonal Allergies: Yes (APARNA LUX Mr Banana STUDENT) Past Medical History Surgery/Hospitalization HX: HX: FACTOR VSX: ANA, UMBILICAL HERNIA REPAIR, TONSILLECTOMY/ADENOIDECTOMY;LAPAROSCOPIC RIGHT OVARIAN CYSTECTOMY 07/26/[address] FENECH DEPRESSION, ANXIETY, CHRONIC ABD PAIN Surgeries: Yes (UMBILICAL HERNIA REPAIR WITH CHOLECYSTECTOMY; RIGHT OVARIAN CYST REMOVED) Abdominal, Adenoidectomy, Gallbladder, Tonsillectomy Respiratory: Yes Asthma Currently Using CPAP: No Currently Using BIPAP: No Cardiac: No Neurological: No Last Menstrual Period: Apr 30, 2021 Reproductive Disorders: Yes (CHRONIC PELVIC/RLQ PAIN ) Female Reproductive Disorders: Denies, Ovarian Cyst Sexually Transmitted Disease: No HIV/AIDS: No Genitourinary: Yes Bladder Infection, UTI-Chronic Gastrointestinal: Yes (CHRONIC PELVIC/RLQ PAIN; CHOLECYSTECTOMY W/ UMBILICAL HERNIA REPAIR;) Abdominal Hernia, Gall Bladder Disease Musculoskeletal: No Endocrine: No HEENT: No Cancer: No Psychosocial: Yes Eating Disorder, Anxiety, PTSD, Bipolar, Depression Integumentary: Yes (TATTOOS) 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) Adverse Reaction/Blood Tranf: No (APARNA LUX STUDENT) Family Medical History BIPOLAR 19 FATHER Diabetes mellitus 19 FATHER FH: factor V Leiden mutation M GRANDMOTHER FH: heart disease GRANDPARENT FH: hyperlipidemia 19 MOTHER GRANDPARENT Factor V deficiency 19 MOTHER G8 BROTHER G8 BROTHER G8 BROTHER G8 SISTER G8 SISTER Hypertension 19 FATHER GRANDPARENT IBS 19 FATHER Seizure disorder 19 FATHER Tuberculosis 19 FATHER CHRONIC LOSS OF APPETITE, AND OFTEN DOES NOT EAT ALL DAY (APARNA LUX STUDENT) Physical Exam Vital Signs Vital Signs - First Documented 05/05/21 12:07 Temp 37.0 Pulse 92 Resp 20 B/P (MAP) 111/70 (84) Pulse Ox 98 O2 Delivery Room Air (ELVI WALLER MD) Vital Signs Capillary Refill : Less Than 3 Seconds (APARNA LUX MED STUDENT) Height/Weight/BMI Height: 5'0" Weight: 105lbs. 0.0oz. [id number]; 19.00 BMI Method:Stated General Appearance: WD/WN, no apparent distress HEENT: PERRL/EOMI, pharynx normal Respiratory: chest non-tender, lungs clear, normal breath sounds Cardiovascular: normal peripheral pulses, regular rate, rhythm, no edema, no murmur Peripheral Pulses: 2+ Radial Pulses (R), 2+ Radial Pulses (L) Gastrointestinal: normal bowel sounds, soft, tenderness (Epigastric, suprapubic, and R sided, tender to touch) Extremities: non-tender, no pedal edema, no calf tenderness Back: normal inspection, no CVA tenderness Neurologic/Psychiatric: alert, normal mood/affect, oriented x 3 Skin: normal color, warm/dry (APARNA LUX MED STUDENT) Progress/Results/Core Measures Results/Orders Lab Results Laboratory Tests Test 05/05/21 12:50 05/05/21 13:02 05/05/21 13:29 Range/Units White Blood Count 7.1 4.3-11.0 10^3/uL Red Blood Count 4.41 3.80-5.11 10^6/uL Hemoglobin 12.4 11.5-16.0 g/dL Hematocrit 37 35-52 % Mean Corpuscular Volume 84 80-99 fL Mean Corpuscular Hemoglobin 28 25-34 pg Mean Corpuscular Hemoglobin Concent 34 32-36 g/dL Red Cell Distribution Width 15.3 H 10.0-14.5 % Platelet Count 282 130-400 10^3/uL Mean Platelet Volume 8.8 L 9.0-12.2 fL Immature Granulocyte % (Auto) 0 % Neutrophils (%) (Auto) 76 H 42-75 % Lymphocytes (%) (Auto) 17 12-44 % Monocytes (%) (Auto) 7 0-12 % Eosinophils (%) (Auto) 0 0-10 % Basophils (%) (Auto) 0 0-10 % Neutrophils # (Auto) 5.4 1.8-7.8 10^3/uL Lymphocytes # (Auto) 1.2 1.0-4.0 10^3/uL Monocytes # (Auto) 0.5 0.0-1.0 10^3/uL Eosinophils # (Auto) 0.0 0.0-0.3 10^3/uL Basophils # (Auto) 0.0 0.0-0.1 10^3/uL Immature Granulocyte # (Auto) 0.0 0.0-0.1 10^3/uL Sodium Level 141 135-145 MMOL/L Potassium Level 4.2 3.6-5.0 MMOL/L Chloride Level 108 H 98-107 MMOL/L Carbon Dioxide Level 22 21-32 MMOL/L Anion Gap 11 5-14 MMOL/L Blood Urea Nitrogen 13 7-18 MG/DL Creatinine 0.77 0.60-1.30 MG/DL Estimat Glomerular Filtration Rate 112 BUN/Creatinine Ratio 17 Glucose Level 96 70-105 MG/DL Calcium Level 9.8 8.5-10.1 MG/DL Corrected Calcium 9.4 8.5-10.1 MG/DL Total Bilirubin 0.4 0.1-1.0 MG/DL Aspartate Amino Transf (AST/SGOT) 15 5-34 U/L Alanine Aminotransferase (ALT/SGPT) 13 0-55 U/L Alkaline Phosphatase 69 40-136 U/L C-Reactive Protein High Sensitivity 0.24 0.00-0.50 MG/DL Total Protein 7.2 6.4-8.2 GM/DL Albumin 4.5 3.2-4.5 GM/DL Lipase 8 8-78 U/L Serum Test, Qualitative NEGATIVE NEGATIVE Influenza Type A (RT-PCR) Not Detected Not Detecte Influenza Type B (RT-PCR) Not Detected Not Detecte SARS-CoV-2 RNA (RT-PCR) Not Detected Not Detecte Urine Color YELLOW Urine Clarity CLEAR Urine pH 7.0 5-9 Urine Specific [place] 1.015 L 1.016-1.022 Urine Protein NEGATIVE NEGATIVE Urine Glucose (UA) NEGATIVE NEGATIVE Urine Ketones NEGATIVE NEGATIVE Urine Nitrite NEGATIVE NEGATIVE Urine Bilirubin NEGATIVE NEGATIVE Urine Urobilinogen 0.2 < = 1.0 MG/DL Urine Leukocyte Esterase NEGATIVE NEGATIVE Urine RBC (Auto) 2+ H NEGATIVE Urine RBC 5-10 H /HPF Urine WBC NONE /HPF Urine Squamous Epithelial Cells RARE /HPF Urine Crystals NONE /LPF Urine Bacteria NEGATIVE /HPF Urine Casts NONE /LPF Urine Mucus NEGATIVE /LPF Urine Culture Indicated NO Urine Opiates Screen NEGATIVE NEGATIVE Urine Oxycodone Screen NEGATIVE NEGATIVE Urine Methadone Screen NEGATIVE NEGATIVE Urine Propoxyphene Screen NEGATIVE NEGATIVE Urine Barbiturates Screen NEGATIVE NEGATIVE Ur Tricyclic Antidepressants Screen NEGATIVE NEGATIVE Urine Phencyclidine Screen NEGATIVE NEGATIVE Urine Amphetamines Screen NEGATIVE NEGATIVE Urine Methamphetamines Screen NEGATIVE NEGATIVE Urine Benzodiazepines Screen NEGATIVE NEGATIVE Urine Cocaine Screen NEGATIVE NEGATIVE Urine Cannabinoids Screen POSITIVE H NEGATIVE (ELVI WALLER MD) My Orders Orders - ELVI WALLER MD Cbc With Automated Diff (05/05/21 12:32) Comprehensive Metabolic Panel (05/05/21 12:32) Hs C Reactive Protein (05/05/21 12:32) Hcg,Qualitative Serum (05/05/21 12:32) Lipase (05/05/21 12:32) Ua Culture If Indicated (05/05/21 12:32) Ed Iv/Invasive Line Start (05/05/21 12:32) Lactated Ringers (Lr 1000 Ml Iv Solution (05/05/21 12:45) Ondansetron Injection (Zofran Injectio (05/05/21 12:45) Famotidine Injection (Pepcid Injection) (05/05/21 12:45) Covid 19 Inhouse Test (05/05/21 12:32) Influenza A And B By Pcr (05/05/21 12:32) Promethazine Injection (Phenergan Injec (05/05/21 14:30) Lidocaine 2% Viscous 15 Ml (Xylocaine Vi (05/05/21 14:30) Antacid Suspension (Mylanta Suspension (05/05/21 14:30) Drug Screen Stat (Urine) (05/05/21 15:09) Fentanyl Inj (Sublimaze Injection) (05/05/21 15:30) Abdomen, Flat & Upright/Decub (05/05/21 15:28) Hydrocodone/Apap 5/325 Tablet (Lortab 5 (05/05/21 16:30) Helicobacter Pylori Jessica Igg (05/05/21 16:25) (ELVI WALLER MD) Medications Given in ED (ELVI WALLER MD) Vital Signs/I&O 05/05/21 05/05/21 12:07 16:54 Temp 37.0 Pulse 92 79 Resp 20 20 B/P (MAP) 111/70 (84) 96/60 Pulse Ox 98 98 O2 Delivery Room Air Room Air (ELVI WALLER MD) Blood Pressure Mean: 84 Progress Progress Note : Progress Note Patient was seen and examined along with MS 4. She was treated with Pepcid, Zofran, and IV fluids. She had refractory nausea which was treated with Phenergan. GI cocktail was administered and caused increased burning. Patient was eventually treated with fentanyl. KUB and upright x-ray was obtained and was unremarkable. We had a long discussion with patient and mother about the possible influence of marijuana in her recurrent GI problems. She was encouraged to abstain from marijuana permanently and to reassess possible etiologies after she has been off marijuana for several months. She expressed understanding. See discharge instructions for further discussion. (ELVI WALLER MD) Diagnostic Imaging Diagonstic Imaging: Xray Plain Films/CT/US/NM/MRI: abdomen, pelvis Comments KUB and upright x-rays viewed by me and report reviewed. See report below: NAME: SUSANA CLAYTON [facility] REC#: [id number] PT STATUS: REG ER : 2000 PHYSICIAN: ELVI WALLER MD ADMIT DATE: 05/05/21/ER Signed Date of Exam:05/05/21 ABDOMEN, FLAT & UPRIGHT/DECUB INDICATION: Severe abdominal pain. Unable to remove bellybutton ring. EXAMINATION: Abdomen, 05/05/2021. COMPARISON: 12/29/2017. FINDINGS: 3 views of the abdomen. There are clips in the right upper quadrant consistent with previous cholecystectomy. There is no evidence for free air. There are scattered air and stool throughout the colon. No dilated loops of bowel. No obstructive process is seen. Umbilical ring overlies the mid abdomen. IMPRESSION: Nonobstructive bowel gas pattern. Dictated by: Dictated on workstation # [id number] Dict: 05/05/21 1559 Trans: 05/05/21 1637 [facility] [id number] Interpreted by: COURT CAMILO MD Electronically signed by: COURT CAMILO MD 05/05/21 1637 (ELVI WALLER MD) Departure Impression Primary Impression: Epigastric pain Additional Impressions: Nausea & vomiting Qualified Codes: R11.2 - Nausea with vomiting, unspecified Marijuana use Disposition: HOME, SELF-CARE Condition: Improved Departure-Patient Inst. Decision time for Depature: 16:28 (ELVI WALLER MD) Referrals: DEVIN COUGHLIN MD (PCP/Family) Primary Care Physician Patient Instructions: Abdominal Pain, Adult ED, Cannabis Hyperemesis Syndrome Add. Discharge Instructions: Start with a noncarbonated clear liquid diet and gradually advance your diet with small quantities of bland food as tolerated. Use the Zofran (ondansetron) as prescribed for nausea and vomiting. Use omeprazole and Carafate consistently for the next few weeks to help treat your upper abdominal pain. It may take a few weeks for your pain to significantly improve. You may use Tylenol (acetaminophen) up to 650 mg every 6 hours as needed for pain. You had an H. pylori test ordered in the hospital. Results should be available early next week. Please contact your primary care provider to obtain results. Follow-up with your primary care provider next week. Use of marijuana and THC products may be a significant contributing factor to your abdominal problems. It may be very difficult to determine what role marijuana plays in your symptoms until you are able to abstain for several months. Please refrain from any marijuana or THC use of any kind including secondhand smoke exposure for 6 months and report your response to abstaining to your primary care provider. Avoid the following: Eating large meals, eating close to bedtime, caffeine, carbonation, chocolate, citrus fruits and juices, mints, spicy foods, fatty or greasy foods, alcohol, tobacco, NSAID medications such as ibuprofen or naproxen, or anything else you know irritates your stomach Call with questions or concerns. Return to the emergency room if you have worsening symptoms despite following these instructions. All discharge instructions reviewed with patient and/or family. Voiced understanding. Scripts Sucralfate (Carafate) 1 Gm Tablet 1 GM PO QID, #120 TAB Crush or dissolve and mix into 5-10 mL water to make a slurry. Take 30 minutes before meals and bedtime. Prov: ELVI WALLER MD 05/05/21 Ondansetron (Ondansetron Odt) 4 Mg Tab.rapdis 4 MG SL Q4H PRN for NAUSEA/VOMITING, #10 TAB Prov: ELVI WALLER MD 05/05/21 Omeprazole (Omeprazole) 20 Mg Capsule.dr 20 MG PO BID, #60 CAP Prov: ELVI WALLER MD 05/05/21 Copy Copies To 1: DEVIN COUGHLIN MD, DEREK MED STUDENT May 05, 2021 12:24 ELVI WALLER MD May 05, 2021 16:25
[2021-05-05] MEDS ORDERED: LACTATED RINGERS 1,000 ML IV ONE (12:45)
[2021-05-05] MEDS ORDERED: FAMOTIDINE 20MG/2ML IV (PEPCID) IVP ONE (12:45)
[2021-05-05] MEDS ORDERED: ONDANSETRON 4 MG/2 ML (SDV) Z0FRAN IVP ONE (12:45)
[2021-05-05 12:58] LABS: BASOPHILS % (AUTO) 0 % (0-10); EOSINOPHILS % (AUTO) 0 % (0-10); HEMATOCRIT 37 % (35-52); HEMOGLOBIN 12.4 g/dL (11.5-16.0); LYMPHOCYTES # (AUTO) 1.2 10^3/uL (1.0-4.0); LYMPHOCYTES % (AUTO) 17 % (12-44); MEAN CORPUSCULAR HEMOGLOBIN 28 pg (25-34); MEAN CORPUSCULAR HGB CONC 34 g/dL (32-36); MEAN CORPUSCULAR VOLUME 84 fL (80-99); MEAN PLATELET VOLUME 8.8 fL (9.0-12.2); MONOCYTES # (AUTO) 0.5 10^3/uL (0.0-1.0); MONOCYTES % (AUTO) 7 % (0-12); NEUTROPHILS # (AUTO) 5.4 10^3/uL (1.8-7.8); NEUTROPHILS % (AUTO) 76 % (42-75); PLATELET COUNT 282 10^3/uL (130-400); WHITE BLOOD COUNT 7.1 10^3/uL (4.3-11.0)
[2021-05-05 13:12] LABS: ALBUMIN 4.5 GM/DL (3.2-4.5)
[2021-05-05 13:13] LABS: POTASSIUM 4.2 MMOL/L (3.6-5.0)
[2021-05-05 13:14] LABS: CALCIUM 9.8 MG/DL (8.5-10.1)
[2021-05-05 13:15] LABS: TOTAL PROTEIN 7.2 GM/DL (6.4-8.2)
[2021-05-05 13:17] LABS: BILIRUBIN,TOTAL 0.4 MG/DL (0.1-1.0)
[2021-05-05 13:19] LABS: CREATININE SERUM 0.77 MG/DL (0.60-1.30)
[2021-05-05 13:41] LABS: BILIRUBIN,URINE NEGATIVE (NEGATIVE); CLARITY,URINE CLEAR; COLOR,URINE YELLOW; GLUCOSE, URINE (UA) NEGATIVE (NEGATIVE); KETONES,URINE NEGATIVE (NEGATIVE); LEUKOCYTE ESTERASE ,URINE NEGATIVE (NEGATIVE); NITRITE,URINE NEGATIVE (NEGATIVE); PROTEIN,URINE NEGATIVE (NEGATIVE)
[2021-05-05 13:50] LABS: BACTERIA,URINE NEGATIVE /HPF; SQUAMOUS EPITHELIAL CELL,UR RARE /HPF
[2021-05-05] MEDS ORDERED: PROMETHAZINE INJ 25 MG/ML (PHENERGAN) AMP IVP ONE (14:30)
[2021-05-05] MEDS ORDERED: LIDOCAINE 2% VISCOUS 15 ML UDC PO ONE (14:30)
[2021-05-05] MEDS ORDERED: ANTACID SUSP 30 ML UDC (MYLANTA) PO ONE (14:30)
[2021-05-05 15:26] LABS: AMPHETAMINE SCREEN, URINE NEGATIVE (NEGATIVE); BARBITURATE SCREEN URINE NEGATIVE (NEGATIVE); BENZODIAZEPINES SCREEN URINE NEGATIVE (NEGATIVE); CANNABINOID SCREEN, URINE POSITIVE (NEGATIVE); COCAINE SCREEN URINE NEGATIVE (NEGATIVE); METHADONE STAT NEGATIVE (NEGATIVE); METHAMPHETAMINE SCREEN URINE S NEGATIVE (NEGATIVE); OPIATE SCREEN URINE NEGATIVE (NEGATIVE); OXYCODONE STAT NEGATIVE (NEGATIVE); PROPOXYPHENE STAT NEGATIVE (NEGATIVE); TRICYCLIC ANTIDEPRESSANTS SCRE NEGATIVE (NEGATIVE)
[2021-05-05] MEDS ORDERED: fentaNYL INJ 100 MCG/2 ML AMP IVP ONE (15:30)
--- NOTE | 2021-05-05 16:05 | Diagnostic Imaging Report ---
INDICATION: Severe abdominal pain. Unable to remove bellybutton ring. EXAMINATION: Abdomen, 05/05/2021. COMPARISON: 12/29/2017. FINDINGS: 3 views of the abdomen. There are clips in the right upper quadrant consistent with previous cholecystectomy. There is no evidence for free air. There are scattered air and stool throughout the colon. No dilated loops of bowel. No obstructive process is seen. Umbilical ring overlies the mid abdomen. IMPRESSION: Nonobstructive bowel gas pattern. Dictated by: Dictated on workstation # [id number]
[2021-05-05] MEDS ORDERED: HYDROcodone/APAP 5 MG/325 MG (LORTAB) TAB PO ONE (16:30)
[2021-05-05] MEDS ORDERED: OMEP20CA18 PO (16:38)
[2021-05-05] MEDS ORDERED: SUCR1TAB36 PO (16:38)
[2021-05-05] MEDS ORDERED: ONDA4TAB11 SL (16:38)
[2021-05-05 16:54] VITALS: BP 96/60
== END 2021-05-05 16:54 | disposition home or self-care (01) ==
LOC: EDUNIT# 11:46 → ER 11:47
DX: R10.13 Epigastric pain (principal); R11.2 Nausea with vomiting, unspecified; F12.90 Cannabis use, unspecified, uncomplicated; F17.290 Nicotine dependence, other tobacco product, uncomplicated; Z32.02 Encounter for pregnancy test, result negative; Z20.822 Contact with and (suspected) exposure to COVID-19
CPT/HCPCS: 36415; 74019; 80053; 80306; 81000; 83690; 84703; 85025; 86141; 86677; 87636

== ENCOUNTER 2021-05-07 20:02 | Emergency (ER) | payer OTHER, MEDICAID ==
[~2021-05-07] VITALS: Ht 152 cm; Wt 45.3 kg
[~2021-05-07 20:02] MED LIST changes: +OMEP20CA18 PO; +ONDA4TAB11 SL; +SUCR1TAB36 PO
[2021-05-07] MEDS ORDERED: KETOROLAC 30 MG/ML VIAL IM ONE (20:45)
[2021-05-07] MEDS ORDERED: ONDANSETRON 4 MG (ZOFRAN) ORAL DISSOLVE TAB PO ONE (20:45)
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
[2021-05-07] MEDS ORDERED: TIZA2CAP9 PO (20:53)
[2021-05-07] MEDS ORDERED: ONDA4TAB11 PO (20:53)
[2021-05-07 21:00] LABS: BILIRUBIN,URINE NEGATIVE (NEGATIVE); CLARITY,URINE CLEAR; COLOR,URINE YELLOW; GLUCOSE, URINE (UA) NEGATIVE (NEGATIVE); KETONES,URINE 3+ (NEGATIVE); LEUKOCYTE ESTERASE ,URINE NEGATIVE (NEGATIVE); NITRITE,URINE NEGATIVE (NEGATIVE); PROTEIN,URINE NEGATIVE (NEGATIVE)
[2021-05-07 21:22] LABS: BACTERIA,URINE FEW /HPF; WBC,URINE 0-2 /HPF
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
[2021-05-07 21:59] VITALS: BP 116/66
[2021-05-07] MEDS ORDERED: ORPHENADRINE 60 MG/2 ML (NORFLEX) AMP (ED ONLY) IM ONE (22:00)
== END 2021-05-07 22:00 | disposition home or self-care (01) ==
LOC: EDUNIT# 20:02 → ER 20:06
DX: S06.0X1A Concussion with loss of consciousness of 30 minutes or less, initial encounter (principal); I80.8 Phlebitis and thrombophlebitis of other sites; M54.50 Low back pain, unspecified; M54.6 Pain in thoracic spine; M53.3 Sacrococcygeal disorders, not elsewhere classified; R40.2140 Coma scale, eyes open, spontaneous, unspecified time; R40.2250 Coma scale, best verbal response, oriented, unspecified time; R40.2360 Coma scale, best motor response, obeys commands, unspecified time; F32.9 Major depressive disorder, single episode, unspecified; F17.290 Nicotine dependence, other tobacco product, uncomplicated; Z79.899 Other long term (current) drug therapy; V49.40XA Driver injured in collision with unspecified motor vehicles in traffic accident, initial encounter; Y92.410 Unspecified street and highway as the place of occurrence of the external cause
CPT/HCPCS: 72040; 72070; 72100; 81000; 84703

== ENCOUNTER → 2021-05-09 | Outpatient (CLI) | payer MEDICAID, OTHER ==
[~2021-05-09] MED LIST changes: +TIZA2CAP9 PO
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
== END ==
LOC: RAD 07:42
PROVIDERS: ATTEND Emergency Medicine
DX: I82.612 Acute embolism and thrombosis of superficial veins of left upper extremity (principal); I80.9 Phlebitis and thrombophlebitis of unspecified site; D68.51 Activated protein C resistance; V89.2XXA Person injured in unspecified motor-vehicle accident, traffic, initial encounter

== ENCOUNTER 2021-06-19 21:58 | Emergency (ER) | payer MEDICAID ==
[~2021-06-19] VITALS: Ht 152.4 cm; Wt 45.4 kg
[2021-06-19] MEDS ORDERED: APIX5TAB (22:33)
[2021-06-19] MEDS ORDERED: ENOX40DI8 (22:33)
[2021-06-19] MEDS ORDERED: OLAN10TA71 (22:33)
[2021-06-19 22:46] LABS: BILIRUBIN,URINE NEGATIVE (NEGATIVE); CLARITY,URINE SL CLOUDY; COLOR,URINE YELLOW; GLUCOSE, URINE (UA) NEGATIVE (NEGATIVE); KETONES,URINE NEGATIVE (NEGATIVE); LEUKOCYTE ESTERASE ,URINE NEGATIVE (NEGATIVE); NITRITE,URINE NEGATIVE (NEGATIVE); PROTEIN,URINE NEGATIVE (NEGATIVE)
[2021-06-19 22:51] LABS: BACTERIA,URINE MODERATE /HPF; WBC,URINE 0-2 /HPF
--- NOTE | 2021-06-20 01:38 | ED GU-Female ---
General Chief Complaint: Abdominal/GI Problems Stated Complaint: CRAMPING, DIZZY, GIRARD Nursing Triage Note: reports possibly being with positive and negative urine tests at home. lmp 05/31/21 History of Present Illness Date Seen by Provider: June 20, 2021 Time Seen by Provider: 01:20 Initial Comments 20-year-old female is here for test. Patient had 4 jdus-[id number]-[id number] tests and which 2 were positive and 2 were negative, so she was confused and wanted to have it confirmed. 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 Patient has an LMP of May 31, 2021. No other symptoms or complaints. Allergies and Home Medications Allergies Coded Allergies: Cephalosporins (Verified Allergy, Unknown, 03/15/21) Patient Home Medication List Home Medication List Reviewed: Yes Apixaban (Eliquis) 5 Mg Tablet, (Reported) Entered as Reported by: ASHA CHANDLER on 06/19/212232 Last Action: New Order Enoxaparin Sodium (Enoxaparin Sodium) 40 Mg/0.4 Ml Syringe, (Reported) Entered as Reported by: ASHA CHANDLER on 06/19/212232 Last Action: New Order Olanzapine (Olanzapine) 10 Mg Tablet, (Reported) Entered as Reported by: ASHA CHANDLER on 06/19/212232 Last Action: New Order Discontinued Medications Cefuroxime Axetil (Cefuroxime) 250 Mg Tablet, 250 MG PO BID Discontinued Reason: No Longer Taking Prescribed by: KALIN CALDERON on 03/13/21 2215 Last Action: Discontinued Hydrocodone/Acetaminophen (Hydrocodone-Acetamin 5-325 mg) 1 Each Tablet, 1 TAB PO Q4H PRN for PAIN-MODERATE (5-7) Discontinued Reason: No Longer Taking Prescribed by: KEVIN GARCIA on 07/26/19 0935 Last Action: Discontinued Hydrocodone/Acetaminophen (Hydrocodone-Acetamin 5-325 mg) 1 Each Tablet, 1 TAB PO Q4H PRN for PAIN-MODERATE (5-7) Discontinued Reason: No Longer Taking Prescribed by: KYM LAWRENCE on 05/22/20 2321 Last Action: Discontinued Hydrocodone/Acetaminophen (Hydrocodone-Acetamin 5-325 mg) 1 Each Tablet, 1 TAB PO Q4H PRN for PAIN-MODERATE (5-7) Discontinued Reason: No Longer Taking Prescribed by: KALIN CALDERON on 05/01/21 1811 Last Action: Discontinued Ibuprofen (Ibuprofen) 600 Mg Tablet, 600 MG PO Q6H Discontinued Reason: No Longer Taking Prescribed by: KEVIN GARCIA on 07/26/19 0935 Last Action: Discontinued Metronidazole (Flagyl) 500 Mg Tablet, 500 MG PO BID Discontinued Reason: No Longer Taking Prescribed by: ELVI LOONEY on 07/28/20 1857 Last Action: Discontinued Naproxen (Naproxen) 500 Mg Tablet.dr, 500 MG PO BID Discontinued Reason: No Longer Taking Prescribed by: MARIAM MENDIETA on 10/12/20 2346 Last Action: Discontinued Nitrofurantoin Monohyd/M-Cryst (Macrobid 100 mg Capsule) 100 Mg Capsule, 1 TAB PO BID Discontinued Reason: No Longer Taking Prescribed by: MARIAM MENDIETA on 10/12/20 2346 Last Action: Discontinued Nitrofurantoin Monohyd/M-Cryst (Macrobid 100 mg Capsule) 100 Mg Capsule, 1 TAB PO BID Discontinued Reason: No Longer Taking Prescribed by: MARIAM MENDIETA on 03/27/21 1827 Last Action: Discontinued Omeprazole (Omeprazole) 20 Mg Capsule.dr, 20 MG PO BID Discontinued Reason: No Longer Taking Prescribed by: ELVI LOONEY on 05/05/21 1638 Last Action: Discontinued Ondansetron (Ondansetron Odt) 4 Mg Tab.rapdis, 4 MG PO TID PRN for NAUSEA-1ST LINE Discontinued Reason: No Longer Taking Prescribed by: QUINCY CONLEY on 07/26/19 1304 Last Action: Discontinued Ondansetron (Ondansetron Odt) 4 Mg Tab.rapdis, 4 MG PO Q6H PRN for NAUSEA/VOMITING Discontinued Reason: No Longer Taking Prescribed by: KYM LAWRENCE on 05/22/20 2320 Last Action: Discontinued Ondansetron (Ondansetron Odt) 8 Mg Tab.rapdis, 8 MG PO Q6H PRN for NAUSEA/VO MITING Discontinued Reason: No Longer Taking Prescribed by: KALIN CALDERON on 02/18/21 1552 Last Action: Discontinued Ondansetron (Ondansetron Odt) 8 Mg Tab.rapdis, 8 MG PO Q6H PRN for NAUSEA/VOMITING Discontinued Reason: No Longer Taking Prescribed by: KALIN CALDERON on 03/13/212214 Last Action: Discontinued Ondansetron (Ondansetron Odt) 4 Mg Tab.rapdis, 4 MG SL Q4H PRN for NAUSEA/VOMITING Discontinued Reason: No Longer Taking Prescribed by: ELVI LOONEY on 05/05/211637 Last Action: Discontinued Ondansetron (Ondansetron Odt) 4 Mg Tab.rapdis, 4 MG PO Q6H PRN for NAUSEA/VOMITING Discontinued Reason: No Longer Taking Prescribed by: KYM LWARENCE on 05/07/212052 Last Action: Discontinued Phenazopyridine HCl (Pyridium) 200 Mg Tablet, 1 TAB PO TID Discontinued Reason: No Longer Taking Prescribed by: MARIAM MENDIETA on 10/12/20 2346 Last Action: Discontinued Phenazopyridine HCl (Pyridium) 200 Mg Tablet, 1 TAB PO TID Discontinued Reason: No Longer Taking Prescribed by: MARIAM MENDIETA on 03/27/21 1837 Last Action: Discontinued Sucralfate (Carafate) 1 Gm Tablet, 1 GM PO QID Discontinued Reason: No Longer Taking Prescribed by: ELVI LOONEY on 05/05/211637 Last Action: Discontinued Tizanidine HCl (Tizanidine HCl) 2 Mg Capsule, 2-4 MG PO Q12H PRN for SPASMS Discontinued Reason: No Longer Taking Prescribed by: KYM LAWRENCE on 05/07/212052 Last Action: Discontinued Review of Systems Review of Systems Constitutional: no symptoms reported EENTM: no symptoms reported Respiratory: no symptoms reported Cardiovascular: no symptoms reported Gastrointestinal: no symptoms reported Genitourinary: no symptoms reported Musculoskeletal: no symptoms reported Skin: no symptoms reported Psychiatric/Neurological: No Symptoms Reported Endocrine: No Symptoms Reported Hematologic/Lymphatic: No Symptoms Reported Past [place]jcah-Bwddbv-Pqnwxx Hx Patient Social History Tobacco Use?: Yes Substance use?: No Alcohol Use?: No Pt feels they are or have been: No Immunizations Up To Date Tetanus Booster (TDap): Less than 5yrs PED Vaccines UTD: No First/Initial COVID19 Vaccinat: N/A Second COVID19 Vaccination Camacho: N/A Third COVID19 Vaccination Date: N/A Seasonal Allergies Seasonal Allergies: Yes Past Medical History Surgery/Hospitalization HX: Factor 5, heart murmur, ovarian cysts, surgeries: gallbladder, hernia, knee, tonsils/adenoids, cyst removed from the ovary Surgeries: Yes (UMBILICAL HERNIA REPAIR WITH CHOLECYSTECTOMY; RIGHT OVARIAN CYST REMOVED) Abdominal, Adenoidectomy, Gallbladder, Tonsillectomy Respiratory: Yes Asthma Currently Using CPAP: No Currently Using BIPAP: No Cardiac: No Neurological: No Last Menstrual Period: May 31, 2021 Reproductive Disorders: Yes (CHRONIC PELVIC/RLQ PAIN ) Female Reproductive Disorders: Denies, Ovarian Cyst Sexually Transmitted Disease: No HIV/AIDS: No Genitourinary: Yes Bladder Infection, UTI-Chronic Gastrointestinal: Yes (CHRONIC PELVIC/RLQ PAIN; CHOLECYSTECTOMY W/ UMBILICAL HERNIA REPAIR;) Abdominal Hernia, Gall Bladder Disease Musculoskeletal: No Endocrine: No HEENT: No Cancer: No Psychosocial: Yes Eating Disorder, Anxiety, PTSD, Bipolar, Depression Integumentary: Yes (TATTOOS) 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) Adverse Reaction/Blood Tranf: No Family Medical History BIPOLAR 19 FATHER Diabetes mellitus 19 FATHER FH: factor V Leiden mutation M GRANDMOTHER FH: heart disease GRANDPARENT FH: hyperlipidemia 19 MOTHER GRANDPARENT Factor V deficiency 19 MOTHER G8 BROTHER G8 BROTHER G8 BROTHER G8 SISTER G8 SISTER Hypertension 19 FATHER GRANDPARENT IBS 19 FATHER Seizure disorder 19 FATHER Tuberculosis 19 FATHER CHRONIC LOSS OF APPETITE, AND OFTEN DOES NOT EAT ALL DAY Physical Exam Vital Signs Vital Signs - First Documented 06/19/21 22:21 Temp 36.8 Pulse 84 Resp 18 B/P (MAP) 108/80 (89) Pulse Ox 100 O2 Delivery Room Air Capillary Refill : Less Than 3 Seconds Height, Weight, BMI Height: 5'0" Weight: 105lbs. 0.0oz. 47.448926by; 19.00 BMI Method:Stated General Appearance: WD/WN, no apparent distress HEENT: PERRL/EOMI, normal ENT inspection Neck: full range of motion Cardiovascular: normal peripheral pulses Respiratory: chest non-tender, no respiratory distress Gastrointestinal: normal bowel sounds, soft, tenderness Extremities: No no pedal edema Neurologic/Psychiatric: alert, normal mood/affect, oriented x 3 Skin: normal color Progress/Results/Core Measures Suspected Sepsis SIRS Temperature: Pulse: 84 Respiratory Rate: 18 Blood Pressure 108 /80 Mean: 89 Results/Orders Lab Results Laboratory Tests Test 06/19/21 22:41 5/10/22 22:53 Range/Units Urine Color YELLOW Urine Clarity SL CLOUDY Urine pH 6.0 5-9 Urine Specific [place] 1.025 H 1.016-1.022 Urine Protein NEGATIVE NEGATIVE Urine Glucose (UA) NEGATIVE NEGATIVE Urine Ketones NEGATIVE NEGATIVE Urine Nitrite NEGATIVE NEGATIVE Urine Bilirubin NEGATIVE NEGATIVE Urine Urobilinogen 0.2 < = 1.0 MG/DL Urine Leukocyte Esterase NEGATIVE NEGATIVE Urine RBC (Auto) NEGATIVE NEGATIVE Urine RBC NONE /HPF Urine WBC 0-2 /HPF Urine Squamous Epithelial Cells 10-25 H /HPF Urine Crystals NONE /LPF Urine Bacteria MODERATE H /HPF Urine Casts NONE /LPF Urine Mucus SMALL H /LPF Urine Culture Indicated YES Serum Test, Qualitative NEGATIVE NEGATIVE Vital Signs/I&O 06/19/21 06/20/21 22:21 01:40 Temp 36.8 36.2 Pulse 84 78 Resp 18 16 B/P (MAP) 108/80 (89) 110/81 Pulse Ox 100 99 O2 Delivery Room Air Room Air Capillary Refill : Less Than 3 Seconds Blood Pressure Mean: 89 Progress Note : Progress Note NEGATIVE TEST - F/u with [facility] - Pt has been trying to get and her LMP was May 31. Departure Impression Primary Impression: Negative test Ruled Out: N&V (nausea and vomiting) Disposition: 01 HOME, SELF-CARE Condition: Stable Departure-Patient Inst. Referrals: DEVIN COUGHLIN MD (PCP/Family) Primary Care Physician Patient Instructions: Tests Add. Discharge Instructions: - F/u with OB-FISHING WORKER as needed All discharge instructions reviewed with patient and/or family. Voiced understanding. ROBBIE PRADHAN MD June 20, 2021 01:38
[2021-06-20 01:40] VITALS: BP 110/81
== END 2021-06-20 01:42 | disposition home or self-care (01) ==
LOC: EDUNIT# 21:58 → ER 22:01
DX: Z32.02 Encounter for pregnancy test, result negative (principal)
CPT/HCPCS: 36415; 81000; 84703; 87088

== ENCOUNTER 2021-07-24 09:47 | Outpatient (CLI) | payer MEDICAID ==
[~2021-07-24] VITALS: Ht 152.4 cm; Wt 45.4 kg
[~2021-07-24 09:47] MED LIST changes: +APIX5TAB; +ENOX40DI8; +OLAN10TA71
[2021-07-24] MEDS ORDERED: MIRT-68 PO (12:33)
[2021-07-25] MEDS ORDERED: PANT40TA2 PO (10:37)
== END 2021-07-24 13:16 | disposition home or self-care (01) ==
LOC: PREOP 09:47
PROVIDERS: ATTEND Surgery
DX: Z01.818 Encounter for other preprocedural examination (principal)

== ENCOUNTER 2021-07-25 10:17 | Day surgery (SDC) | payer MEDICAID ==
[~2021-07-25] VITALS: Ht 152.4 cm; Wt 45.4 kg
[~2021-07-25 10:17] MED LIST changes: +MIRT-68 PO
[2021-07-25] MEDS ORDERED: LACTATED RINGERS 1,000 ML IV STA (10:24)
[2021-07-25] MEDS ORDERED: HURRICAINE EXT TUBE (BENZOCAINE) XX PRN (10:30)
[2021-07-25] MEDS ORDERED: LIDOCAINE JELLY 2% 6 ML SYRINGE MM PRN (10:30)
[2021-07-25 10:35] VITALS: BP 100/68
--- NOTE | 2021-07-25 10:36 | Progress Note-Pre Operative ---
Pre-Operative Progress Note H&P Reviewed The H&P was reviewed, patient examined and no changes noted. Date Seen by Provider: Jul 25, 2021 Time Seen by Provider: 10:00 Date H&P Reviewed: Jul 25, 2021 Time H&P Reviewed: 10:00 Pre-Operative Diagnosis: weight loss, nausea MARTINE BAILEY MD Jul 25, 2021 10:36
[2021-07-25] MEDS ORDERED: PANT40TA2 PO (10:37)
--- NOTE | 2021-07-25 10:38 | Discharge Inst-Surgical ---
D/C Lap Instructions-KIDO New, Converted, or Re-Newed RX: RX on Chart Follow Up Activity as tolerated High Fiber Diet 25g or more per day Avoid Alcohol, Caffeine, Spicy [place] and Acid foods. Drink 64 fluid oz or more of fluids per day. Symptoms to Report: Fever over 101 degree F, Nausea/Vomiting If any problems/questions: Contact your physician or go to Emergency Room MARTINE BAILEY MD Jul 25, 2021 10:38
[2021-07-25] MEDS ORDERED: LACTATED RINGERS 1,000 ML IV ONE (10:39)
[2021-07-25] MEDS ORDERED: ONDANSETRON 4 MG (ZOFRAN) ORAL DISSOLVE TAB PO PRN (10:45)
[2021-07-25] MEDS ORDERED: ONDANSETRON 4 MG/2 ML (SDV) Z0FRAN IVP PRN (10:45)
[2021-07-25] MEDS ORDERED: proPOfol 200 MG/20 ML (DIPRIVAN) VIAL IV ONE (11:21)
[2021-07-25] MEDS ORDERED: MIDAZOLAM 2 MG/2 ML (VERSED) VIAL ONE (11:21)
[2021-07-25 12:00] VITALS: BP 105/58
[2021-07-25 12:05] VITALS: BP 105/60
[2021-07-25 12:10] VITALS: BP 107/60
--- NOTE | 2021-07-25 12:12 | Progress Note-Post Operative ---
Post-Operative Progess Note Surgeon (s)/Transport Tank Technician (s) Surgeon MARTINE BAILEY MD Transport Tank Technician: none Pre-Operative Diagnosis weight loss, nausea Post-Operative Diagnosis reflux esophagitis(grade B), small HH(2cm), moderate gastritis. Procedure & Operative Findings Date of Procedure 07/25/21 Procedure Performed/Findings EGD with bx. Anesthesia Type mac Estimated Blood Loss Estimated blood loss (mL): minimal Specimens/Packing Specimens Removed ge jxn, antrum MARTINE BAILEY MD Jul 25, 2021 12:12
[2021-07-25 12:40] VITALS: BP 92/52
[2021-07-25 12:45] VITALS: BP 92/52
--- NOTE | 2021-07-25 13:54 | Anesthesia-General Post-Op ---
MAC Patient Condition Mental Status/LOC: Same as Preop Cardiovascular: Satisfactory Nausea/Vomiting: Absent Respiratory: Satisfactory Pain: Controlled Complications: Absent Post Op Complications Complications None Follow Up Care/Instructions Patient Instructions None needed. Anesthesiology Discharge Order Discharge Order Patient is doing well, no complaints, stable vital signs, no apparent adverse anesthesia problems. No complications reported per nursing. JENNIFER CHAVEZ CRNA Jul 25, 2021 13:53
--- NOTE | 2021-07-25 17:40 | OPERATIVE REPORT ---
DATE OF SERVICE: 07/25/2021 ATTENDING PRIMARY CARE PHYSICIAN: Dr. Raymundo Nguyen. PREOPERATIVE DIAGNOSES: Anorexia, nausea, early satiety, weight loss. POSTOPERATIVE DIAGNOSES: Reflux esophagitis, Republic grade B, small hiatal hernia approximately 2 cm in size, moderate gastritis. No distal obstructions. PROCEDURE: EGD with biopsy. SURGEON: aMrtine Bailey MD ANESTHESIA: Monitored anesthesia care. ESTIMATED BLOOD LOSS: Minimal. FINDINGS: Reflux esophagitis, Republic grade B, small hiatal hernia approximately 2 cm in size, moderate gastritis. No distal obstructions. DISPOSITION: The patient tolerated the procedure well. INDICATIONS: The patient is a 21-year-old female referred over to us for epigastric crampy pain as well as loss of appetite and early satiety with very small amounts of food. She has also had significant weight loss and was admitted several months ago due to this anorexia and weight loss and was as low as 74 pounds. She does admit to smoking THC on a daily basis in hopes of improving the nausea. DESCRIPTION OF PROCEDURE: The patient was brought to the endoscopy suite, laid in the left lateral decubitus position. After adequate IV pain and sedative medications and monitored anesthesia care, the mouthpiece was applied. The endoscope was placed in the mouth, visualizing the pharynx and hypopharyngeal region. Vocal cords, epiglottis and vallecula identified and appeared to be normal. Endoscope was gently intubated at esophageal opening and esophagus insufflated. The endoscope was then advanced through the first, second and third portions of the esophagus at the level of the GE junction, a reflux esophagitis, Republic grade B identified. A biopsy was taken with forceps with visualization of good hemostasis. The endoscope was then advanced in the stomach and endoscope retroflexed, visualizing a small hiatal hernia approximately 2 cm in size. There was a moderate severity gastritis. No formal ulcerations, polyps, or any neoplasms. A biopsy was taken of the antrum to rule out H. pylori with visualization of good hemostasis. The endoscope was then advanced to the pylorus and the first and second portion of the duodenum with no ulcerations or any distal obstructions. The endoscope was then slowly withdrawn while taking a second look and suctioning of residual air with no additional findings. The patient tolerated the procedure well. We will recommend the necessary lifestyle and dietary accommodation, which would include moderation or cessation of THC products as well as taking in small and more frequent meals and to avoid spicy, greasy and acidic foods. We will also start her on Protonix 40 mg daily and also proceed with a trial of Phenergan 12.5 mg on a p.r.n. basis. Job ID: [id number] DocumentID: [id number] Dictated Date: 07/25/2021 12:07:14 Electronic Gluer Date: 07/25/2021 17:39:23 Dictated By: MARTINE BAILEY MD
== END 2021-07-25 12:55 | disposition home or self-care (01) ==
LOC: ENDO 10:17
PROVIDERS: ATTEND Surgery
DX: K21.00 Gastro-esophageal reflux disease with esophagitis, without bleeding (principal); K44.9 Diaphragmatic hernia without obstruction or gangrene; K29.70 Gastritis, unspecified, without bleeding; F17.290 Nicotine dependence, other tobacco product, uncomplicated; Z28.310 Unvaccinated for COVID-19; Z88.2 Allergy status to sulfonamides
CPT/HCPCS: 84703

== ENCOUNTER 2021-10-07 21:55 | Emergency (ER) | payer MEDICAID ==
[~2021-10-07] VITALS: Ht 152.4 cm; Wt 38.1 kg
[~2021-10-07 21:55] MED LIST changes: +PANT40TA2 PO
[2021-10-07] MEDS ORDERED: KETOROLAC 30 MG/ML VIAL IVP ONE (23:00)
[2021-10-07] MEDS ORDERED: AZITHROMYCIN 250 MG TAB (ZITHROMAX) PO ONE (23:00)
[2021-10-07] MEDS ORDERED: ONDANSETRON 4 MG/2 ML (SDV) Z0FRAN IVP ONE (23:00)
[2021-10-07] MEDS ORDERED: cefTRIAXone 1 GM PRE-MIX 50 ML IV ONE (23:00)
[2021-10-07 23:02] LABS: BILIRUBIN,URINE NEGATIVE (NEGATIVE); CLARITY,URINE CLEAR; COLOR,URINE YELLOW; GLUCOSE, URINE (UA) NEGATIVE (NEGATIVE); KETONES,URINE TRACE (NEGATIVE); LEUKOCYTE ESTERASE ,URINE NEGATIVE (NEGATIVE); NITRITE,URINE NEGATIVE (NEGATIVE); PROTEIN,URINE TRACE (NEGATIVE)
--- NOTE | 2021-10-07 23:04 | ED Abdominal Pain ---
General Chief Complaint: General Problems/Pain Stated Complaint: DIZZINES,FATIUGE,BACK PAIN,VULVA SWELLING Source of Information: Patient Exam Limitations: No Limitations History of Present Illness Date Seen by Provider: Oct 07, 2021 Time Seen by Provider: 22:43 Initial Comments Patient to the ER by private conveyance with chief complaint a little less than a week of back pain malaise nausea thin watery vaginal discharge and vulvar swelling. She denies dyspareunia. She denies recent STD testing. She is not having any dysuria. She not having diarrhea or fevers. No known sick contacts. She was tested a couple days ago for COVID which was negative. She has had her gallbladder out as well as umbilicus hernia repair in the past. Allergies and Home Medications Allergies Coded Allergies: Cephalosporins (Verified Allergy, Unknown, 03/15/21) Patient Home Medication List Home Medication List Reviewed: Yes Mirtazapine (Mirtazapine) 15 Mg Tablet, 15 MG PO DAILY, (Reported) Entered as Reported by: MITUL ABAD on 07/24/21 1233 Olanzapine (Olanzapine) 10 Mg Tablet, (Reported) Entered as Reported by: ASHA CHANDLER on 06/19/21 2233 Pantoprazole Sodium (Protonix) 40 Mg Tablet.dr, 40 MG PO DAILY Prescribed by: MARTINE BAILEY on 07/25/21 1037 Review of Systems Review of Systems Constitutional: No chills, No diaphoresis EENTM: No Blurred Vision, No Double Vision Respiratory: Denies Cough, Denies Orthopnea Cardiovascular: Denies Chest Pain, Denies Edema Gastrointestinal: See HPI, Abdominal Pain; Denies Constipated, Denies Diarrhea; Nausea, Vomiting Genitourinary: Denies Burning, Denies Discharge Musculoskeletal: No back pain, No joint pain All Other Systems Reviewed Negative Unless Noted: Yes Past Defzfjb-Jwsrht-Xptyoo Hx Patient Social History Tobacco Use?: No Use of E-Cig and/or Vaping dev: No Substance use?: No Immunizations Up To Date Tetanus Booster (TDap): Less than 5yrs PED Vaccines UTD: No First/Initial COVID19 Vaccinat: N/A Second COVID19 Vaccination Camacho: N/A Third COVID19 Vaccination Date: N/A Seasonal Allergies Seasonal Allergies: Yes Past Medical History Surgery/Hospitalization HX: Factor 5, heart murmur, ovarian cysts, surgeries: gallbladder, hernia, knee, tonsils/adenoids, cyst removed from the ovary Surgeries: Yes (UMBILICAL HERNIA REPAIR WITH CHOLECYSTECTOMY; RIGHT OVARIAN CYST REMOVED) Abdominal, Adenoidectomy, Gallbladder, Tonsillectomy Respiratory: Yes Asthma Currently Using CPAP: No Currently Using BIPAP: No Cardiac: No Neurological: No Reproductive Disorders: Yes (CHRONIC PELVIC/RLQ PAIN ) Female Reproductive Disorders: Denies, Ovarian Cyst Sexually Transmitted Disease: No HIV/AIDS: No Genitourinary: Yes Bladder Infection, UTI-Chronic Gastrointestinal: Yes (CHRONIC PELVIC/RLQ PAIN; CHOLECYSTECTOMY W/ UMBILICAL HERNIA REPAIR;) Abdominal Hernia, Gall Bladder Disease Musculoskeletal: No Endocrine: No HEENT: No Cancer: No Psychosocial: Yes Eating Disorder, Anxiety, PTSD, Bipolar, Depression Integumentary: Yes (TATTOOS) 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) Adverse Reaction/Blood Tranf: No Family Medical History BIPOLAR 19 FATHER Diabetes mellitus 19 FATHER FH: factor V Leiden mutation M GRANDMOTHER FH: heart disease GRANDPARENT FH: hyperlipidemia 19 MOTHER GRANDPARENT Factor V deficiency 19 MOTHER G8 BROTHER G8 BROTHER G8 BROTHER G8 SISTER G8 SISTER Hypertension 19 FATHER GRANDPARENT IBS 19 FATHER Seizure disorder 19 FATHER Tuberculosis 19 FATHER CHRONIC LOSS OF APPETITE, AND OFTEN DOES NOT EAT ALL DAY Physical Exam Vital Signs Vital Signs - First Documented 10/07/21 22:37 Temp 36.4 Pulse 81 Resp 14 B/P (MAP) 106/72 (83) Pulse Ox 100 Capillary Refill : Height/Weight/BMI Height: 5'0" Weight: 105lbs. 0.0oz. 47.723339du; 19.54 BMI Method:Stated General Appearance: WD/WN, no apparent distress HEENT: PERRL/EOMI, pharynx normal Neck: full range of motion, supple, normal inspection Respiratory: normal breath sounds, no respiratory distress, no accessory muscle use Cardiovascular: normal peripheral pulses, regular rate, rhythm Peripheral Pulses: 2+ Radial Pulses (R), 2+ Radial Pulses (L) Gastrointestinal: normal bowel sounds, tenderness (Suprapubic mild tenderness without rebound tenderness, McBurney's point tenderness, [place] sign.) Neurologic/Psychiatric: alert, oriented x 3 Skin: normal color, warm/dry Progress/Results/Core Measures Results/Orders Lab Results Laboratory Tests Test 10/07/21 22:44 10/07/21 23:05 Range/Units Urine Color YELLOW Urine Clarity CLEAR Urine pH 6.0 5-9 Urine Specific [place] 1.020 1.016-1.022 Urine Protein TRACE H NEGATIVE Urine Glucose (UA) NEGATIVE NEGATIVE Urine Ketones TRACE H NEGATIVE Urine Nitrite NEGATIVE NEGATIVE Urine Bilirubin NEGATIVE NEGATIVE Urine Urobilinogen 0.2 < = 1.0 MG/DL Urine Leukocyte Esterase NEGATIVE NEGATIVE Urine RBC (Auto) NEGATIVE NEGATIVE Urine RBC NONE /HPF Urine WBC RARE /HPF Urine Squamous Epithelial Cells 10-25 H /HPF Urine Crystals NONE /LPF Urine Bacteria TRACE /HPF Urine Casts NONE /LPF Urine Mucus MODERATE H /LPF Urine Other FEW SPERM H /HPF Urine Culture Indicated NO White Blood Count 7.4 4.3-11.0 10^3/uL Red Blood Count 4.42 3.80-5.11 10^6/uL Hemoglobin 12.9 11.5-16.0 g/dL Hematocrit 37 35-52 % Mean Corpuscular Volume 84 80-99 fL Mean Corpuscular Hemoglobin 29 25-34 pg Mean Corpuscular Hemoglobin Concent 35 32-36 g/dL Red Cell Distribution Width 13.7 10.0-14.5 % Platelet Count 296 130-400 10^3/uL Mean Platelet Volume 9.5 9.0-12.2 fL Immature Granulocyte % (Auto) 0 % Neutrophils (%) (Auto) 58 42-75 % Lymphocytes (%) (Auto) 33 12-44 % Monocytes (%) (Auto) 8 0-12 % Eosinophils (%) (Auto) 0 0-10 % Basophils (%) (Auto) 0 0-10 % Neutrophils # (Auto) 4.3 1.8-7.8 10^3/uL Lymphocytes # (Auto) 2.4 1.0-4.0 10^3/uL Monocytes # (Auto) 0.6 0.0-1.0 10^3/uL Eosinophils # (Auto) 0.0 0.0-0.3 10^3/uL Basophils # (Auto) 0.0 0.0-0.1 10^3/uL Immature Granulocyte # (Auto) 0.0 0.0-0.1 10^3/uL Sodium Level 140 135-145 MMOL/L Potassium Level 3.8 3.6-5.0 MMOL/L Chloride Level 105 98-107 MMOL/L Carbon Dioxide Level 21 21-32 MMOL/L Anion Gap 14 5-14 MMOL/L Blood Urea Nitrogen 12 7-18 MG/DL Creatinine 0.87 0.60-1.30 MG/DL Estimat Glomerular Filtration Rate 97 BUN/Creatinine Ratio 14 Glucose Level 81 70-105 MG/DL Calcium Level 9.5 8.5-10.1 MG/DL Corrected Calcium 9.1 8.5-10.1 MG/DL Total Bilirubin 0.9 0.1-1.0 MG/DL Aspartate Amino Transf (AST/SGOT) 13 5-34 U/L Alanine Aminotransferase (ALT/SGPT) 9 0-55 U/L Alkaline Phosphatase 58 40-136 U/L C-Reactive Protein High Sensitivity 0.05 0.00-0.50 MG/DL Total Protein 7.3 6.4-8.2 GM/DL Albumin 4.5 3.2-4.5 GM/DL My Orders Orders - KYM LAWRENCE Ua Culture If Indicated (10/07/21 22:55) Wet Prep (10/07/21 22:55) Neisseria Gonorrhea Swab (10/07/21 22:55) Chlam Dna Probe (10/07/21 22:55) Syphilis Antibody Screen (10/07/21 22:55) Cbc With Automated Diff (10/07/21 22:55) Comprehensive Metabolic Panel (10/07/21 22:55) Ondansetron Injection (Zofran Injectio (10/07/21 23:00) Ketorolac Injection (Toradol Injection) (10/07/21 23:00) Ceftriaxone 1 Gm Pre-Mix (Rocephin 1 Gm (10/07/21 23:00) Azithromycin Tablet (Zithromax Tablet) (10/07/21 23:00) Hs C Reactive Protein (10/07/21 22:55) Medications Given in ED Current Medications Medications Dose Ordered Sig/Arya Route Start Time Stop Time Status Last Admin Dose Admin Azithromycin 1,000 mg ONCE ONCE PO 10/07/21 23:00 10/07/21 23:01 DC 10/07/21 23:32 1,000 MG Ceftriaxone Sodium/Dextrose 50 ml @ 100 mls/hr ONCE ONCE IV 10/07/21 23:00 10/07/21 23:29 DC 10/07/21 23:32 100 MLS/HR Ketorolac Tromethamine 30 mg ONCE ONCE IVP 10/07/21 23:00 10/07/21 23:01 DC 10/07/21 23:11 30 MG Ondansetron HCl 4 mg ONCE ONCE IVP 10/07/21 23:00 10/07/21 23:01 DC 10/07/21 23:10 4 MG Vital Signs/I&O 10/07/21 22:37 Temp 36.4 Pulse 81 Resp 14 B/P (MAP) 106/72 (83) Pulse Ox 100 Progress Progress Note : Time: 00:00 Progress Note Patient has had significant improvement and is no longer having nausea. Her pain is improved. We will provide her with a prescription for doxycycline, ondansetron. Suspect she might have PID as she describes that her partner has a red, peeling, swollen painful penis. We did financial services counselor her about the risks of unchecked infection for infertility as well as return precautions. Departure Impression Primary Impression: Pelvic inflammatory disease Disposition: HOME, SELF-CARE Condition: Stable Departure-Patient Inst. Decision time for Depature: 00:01 Referrals: DEVIN COUGHLIN MD (PCP/Family) Primary Care Physician Patient Instructions: Pelvic Inflammatory Disease (DC) Add. Discharge Instructions: Doxycycline 1 capsule twice a day for 10 days. Tylenol 1000 mg every 8 hours needed for pain. Ibuprofen 800 mg every 8 hours needed for pain. Heating pads and rest as necessary for pain. If you are having severe pain you may use 1/2 to 1 tablet of hydrocodone every 6 hours as needed. Ondansetron 1 tablet every 6 hours as needed for nausea and/or vomiting. I would not attempt to conceive until after your antibiotics are done and you have had 1 cycle. All discharge instructions reviewed with patient and/or family. Voiced understanding. Scripts Doxycycline Hyclate (Doxycycline Hyclate) 100 Mg Tablet 100 MG PO BID for 10 Days, #20 TAB 0 Refills Prov: KYM LAWRENCE 10/08/21 Ondansetron (Ondansetron Odt) 4 Mg Tab.rapdis 4 MG PO Q6H PRN for NAUSEA/VOMITING, #8 TAB 0 Refills Prov: KYM LAWRENCE 10/08/21 KYM LAWRENCE Oct 07, 2021 23:04
[2021-10-07 23:24] LABS: BASOPHILS % (AUTO) 0 % (0-10); EOSINOPHILS % (AUTO) 0 % (0-10); HEMATOCRIT 37 % (35-52); HEMOGLOBIN 12.9 g/dL (11.5-16.0); LYMPHOCYTES # (AUTO) 2.4 10^3/uL (1.0-4.0); LYMPHOCYTES % (AUTO) 33 % (12-44); MEAN CORPUSCULAR HEMOGLOBIN 29 pg (25-34); MEAN CORPUSCULAR HGB CONC 35 g/dL (32-36); MEAN CORPUSCULAR VOLUME 84 fL (80-99); MEAN PLATELET VOLUME 9.5 fL (9.0-12.2); MONOCYTES # (AUTO) 0.6 10^3/uL (0.0-1.0); MONOCYTES % (AUTO) 8 % (0-12); NEUTROPHILS # (AUTO) 4.3 10^3/uL (1.8-7.8); NEUTROPHILS % (AUTO) 58 % (42-75); PLATELET COUNT 296 10^3/uL (130-400); WHITE BLOOD COUNT 7.4 10^3/uL (4.3-11.0)
[2021-10-07 23:28] LABS: BACTERIA,URINE TRACE /HPF; URINE OTHER FEW SPERM /HPF; WBC,URINE RARE /HPF
[2021-10-07 23:32] LABS: ALBUMIN 4.5 GM/DL (3.2-4.5); POTASSIUM 3.8 MMOL/L (3.6-5.0)
[2021-10-07 23:34] LABS: CALCIUM 9.5 MG/DL (8.5-10.1)
[2021-10-07 23:35] LABS: TOTAL PROTEIN 7.3 GM/DL (6.4-8.2)
[2021-10-07 23:37] LABS: BILIRUBIN,TOTAL 0.9 MG/DL (0.1-1.0)
[2021-10-07 23:39] LABS: CREATININE SERUM 0.87 MG/DL (0.60-1.30)
[2021-10-08] MEDS ORDERED: DOXY100T2 PO (00:06)
[2021-10-08] MEDS ORDERED: ONDA4TAB11 PO (00:06)
[2021-10-08 00:20] VITALS: BP 91/59
== END 2021-10-08 00:25 | disposition home or self-care (01) ==
LOC: EDUNIT# 21:55 → ER 21:57
DX: N73.9 Female pelvic inflammatory disease, unspecified (principal); Z88.1 Allergy status to other antibiotic agents; Z28.310 Unvaccinated for COVID-19
CPT/HCPCS: 36415; 80053; 81000; 84703; 85025; 86141; 86780; 87210; 87491; 87591

== ENCOUNTER → 2021-10-12 | Outpatient (CLI) | payer MEDICAID ==
[~2021-10-12] MED LIST changes: +DOXY100T2 PO
--- NOTE | 2021-10-12 08:56 | Diagnostic Imaging Report ---
INDICATION: Abdominal pain Abdominal film obtained at 0839 a.m. There is prominent stool throughout the colon. There is no overt obstruction or ileus. There are no suspicious calcifications over the renal shadows. There are phleboliths in the pelvis. There are surgical clips in the right upper quadrant. IMPRESSION: Prominent stool throughout the colon compatible with constipation. No overt obstruction. Dictated by: Dictated on workstation # [id number]
== END ==
LOC: RAD 08:21
PROVIDERS: ATTEND Family Medicine
DX: R10.9 Unspecified abdominal pain (principal)
CPT/HCPCS: 74018

== ENCOUNTER 2022-06-10 18:06 | Emergency (ER) | payer MEDICAID ==
[~2022-06-10] VITALS: Ht 152 cm; Wt 37.0 kg
[2022-06-10 18:10] VITALS: BP 106/69
[2022-06-10 18:36] LABS: BILIRUBIN,URINE NEGATIVE (NEGATIVE); CLARITY,URINE CLOUDY; COLOR,URINE YELLOW; GLUCOSE, URINE (UA) NEGATIVE (NEGATIVE); KETONES,URINE NEGATIVE (NEGATIVE); LEUKOCYTE ESTERASE ,URINE NEGATIVE (NEGATIVE); NITRITE,URINE NEGATIVE (NEGATIVE); PROTEIN,URINE NEGATIVE (NEGATIVE)
[2022-06-10] MEDS ORDERED: NS IV 1000 ML 1,000 ML IV SCH (18:45)
[2022-06-10 18:50] LABS: BACTERIA,URINE FEW /HPF; RBC,URINE RARE /HPF; WBC,URINE RARE /HPF
[2022-06-10 18:59] LABS: BASOPHILS % (AUTO) 1 % (0-10); EOSINOPHILS # (AUTO) 0.1 10^3/uL (0.0-0.3); EOSINOPHILS % (AUTO) 1 % (0-10); HEMATOCRIT 37 % (35-52); HEMOGLOBIN 12.7 g/dL (11.5-16.0); LYMPHOCYTES # (AUTO) 1.9 10^3/uL (1.0-4.0); LYMPHOCYTES % (AUTO) 34 % (12-44); MEAN CORPUSCULAR HEMOGLOBIN 29 pg (25-34); MEAN CORPUSCULAR HGB CONC 34 g/dL (32-36); MEAN CORPUSCULAR VOLUME 86 fL (80-99); MEAN PLATELET VOLUME 9.6 fL (9.0-12.2); MONOCYTES # (AUTO) 0.5 10^3/uL (0.0-1.0); MONOCYTES % (AUTO) 8 % (0-12); NEUTROPHILS # (AUTO) 3.2 10^3/uL (1.8-7.8); NEUTROPHILS % (AUTO) 56 % (42-75); PLATELET COUNT 253 10^3/uL (130-400); WHITE BLOOD COUNT 5.7 10^3/uL (4.3-11.0)
--- NOTE | 2022-06-10 19:01 | ED GU-Female ---
General Chief Complaint: - Reproductive Stated Complaint: IRR VAG BLEEDING/CRAMPING/SYNCOPAL EPISODES Nursing Triage Note: PT AMB TO TRIAGE, HAS HAD IRREGULAR BLEEDING, PT STATES HAS BEEN BLEEDING VAGINALLY ALL OF MAY. PT CO OF CRAMPING, BACK PAIN, DIZZINESS, SYNCOPE. Source: patient Exam Limitations: no limitations History of Present Illness Date Seen by Provider: June 10, 2022 Time Seen by Provider: 18:08 Initial Comments 22-year-old female presents to the ED with complaints of vaginal bleeding. She states that at the beginning of May she had 2 days of heavy bleeding, and what appeared to be tissue. She is unsure if she was , she did not take a test at this time. She reports that the rest of the months she has been spotting. States that it started 3 days ago, and then started again today. Reports it is a light amount and pinkish-brown in color. She reports besides the vaginal discharge, she reports white mucousy discharge. She states that also for the last 2 years she has had syncopal episodes approximately every 3 to 4 months. States that her vision gets dark, she feels hot and sweaty. She states she does not fully lose consciousness, states that she can hear people talking, but she cannot respond. She reports that she drinks enough water, states that she has not eaten much today though. She denies fevers, chest pain, shortness of air, dysuria. She does report right lower quadrant abdominal pain which has been going on for the entire month. Reports history of polycystic ovarian syndrome, and Factor V Leiden. Reports she has had surgeries to remove cyst on her ovaries in the past. She is G1, P1. Allergies and Home Medications Allergies Coded Allergies: Cephalosporins (Verified Allergy, Unknown, 03/15/21) sulfamethoxazole (Verified Allergy, Unknown, 06/10/22) trimethoprim (Verified Allergy, Unknown, 06/10/22) Patient Home Medication List Home Medication List Reviewed: Yes Doxycycline Hyclate (Doxycycline Hyclate) 100 Mg Tablet, 100 MG PO BID Prescribed by: KYM LAWRENCE on 10/08/21 0006 Mirtazapine (Mirtazapine) 15 Mg Tablet, 15 MG PO DAILY, (Reported) Entered as Reported by: MITUL ABAD on 07/24/21 1233 Olanzapine (Olanzapine) 10 Mg Tablet, (Reported) Entered as Reported by: ASHA CHANDLER on 06/19/212232 Ondansetron (Ondansetron Odt) 4 Mg Tab.rapdis, 4 MG PO Q6H PRN for NAUSEA/VOMITING Prescribed by: KYM LAWRENCE on 10/08/21 0006 Pantoprazole Sodium (Protonix) 40 Mg Tablet.dr, 40 MG PO DAILY Prescribed by: MARTINE BAILEY on 07/25/21 1037 Review of Systems Review of Systems Constitutional: see HPI Past Mokqbis-Mmcarw-Fmqxpf Hx Patient Social History Use of E-Cig and/or Vaping dev: Yes E-Cig or Vaping type used: Nicotine Use of E-Cig and/or Vaping Kev: Current Someday User Substance use?: No Alcohol Use?: No Pt feels they are or have been: No Immunizations Up To Date Tetanus Booster (TDap): Less than 5yrs PED Vaccines UTD: No First/Initial COVID19 Vaccinat: N/A Second COVID19 Vaccination Camacho: N/A Third COVID19 Vaccination Date: N/A Seasonal Allergies Seasonal Allergies: Yes Past Medical History Surgery/Hospitalization HX: Factor 5, heart murmur, ovarian cysts, surgeries: gallbladder, hernia, knee, tonsils/adenoids, cyst removed from the ovary Surgeries: Yes (UMBILICAL HERNIA REPAIR WITH CHOLECYSTECTOMY; RIGHT OVARIAN CYST REMOVED) Abdominal, Adenoidectomy, Gallbladder, Tonsillectomy Respiratory: Yes Asthma Currently Using CPAP: No Currently Using BIPAP: No Cardiac: No Neurological: No Reproductive Disorders: Yes (CHRONIC PELVIC/RLQ PAIN ) Female Reproductive Disorders: Denies, Ovarian Cyst Sexually Transmitted Disease: No HIV/AIDS: No Genitourinary: Yes Bladder Infection, UTI-Chronic Gastrointestinal: Yes (CHRONIC PELVIC/RLQ PAIN; CHOLECYSTECTOMY W/ UMBILICAL HERNIA REPAIR;) Abdominal Hernia, Gall Bladder Disease Musculoskeletal: No Endocrine: No HEENT: No Cancer: No Psychosocial: Yes Eating Disorder, Anxiety, PTSD, Bipolar, Depression Integumentary: Yes (TATTOOS) 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) Adverse Reaction/Blood Tranf: No Family Medical History BIPOLAR 19 FATHER Diabetes mellitus 19 FATHER FH: factor V Leiden mutation M GRANDMOTHER FH: heart disease GRANDPARENT FH: hyperlipidemia 19 MOTHER GRANDPARENT Factor V deficiency 19 MOTHER G8 BROTHER G8 BROTHER G8 BROTHER G8 SISTER G8 SISTER Hypertension 19 FATHER GRANDPARENT IBS 19 FATHER Seizure disorder 19 FATHER Tuberculosis 19 FATHER CHRONIC LOSS OF APPETITE, AND OFTEN DOES NOT EAT ALL DAY Physical Exam Vital Signs Vital Signs - First Documented 06/10/22 18:10 Temp 36.5 Pulse 71 Resp 16 B/P (MAP) 106/69 (81) Pulse Ox 99 Capillary Refill : Less Than 3 Seconds Height, Weight, BMI Height: 5'0" Weight: 105lbs. 0.0oz. 47.388204pg; 16.00 BMI Method:Stated General Appearance: WD/WN, no apparent distress Neck: supple, normal inspection Cardiovascular: regular rate, rhythm Respiratory: lungs clear, normal breath sounds, no respiratory distress, no accessory muscle use Gastrointestinal: normal bowel sounds, soft; No rebound; tenderness (Right lower quadrant tenderness) Pelvic: normal external exam, normal adnexa, no cerv. motion tender, no masses, discharge (Yellowish-white discharge); No vaginal bleeding Extremities: normal range of motion, normal inspection Neurologic/Psychiatric: alert, normal mood/affect Skin: normal color, warm/dry Progress/Results/Core Measures Suspected Sepsis SIRS Temperature: Pulse: 71 Respiratory Rate: 16 Laboratory Tests 06/10/22 18:49: White Blood Count 5.7 Blood Pressure 106 /69 Mean: 81 Laboratory Tests 06/10/22 18:49: Creatinine 0.74, Platelet Count 253, Total Bilirubin 0.9 Results/Orders Lab Results Laboratory Tests Test 06/10/22 18:25 06/10/22 18:49 06/10/22 19:43 Range/Units Urine Color YELLOW Urine Clarity CLOUDY Urine pH 6.0 5-9 Urine Specific [place] >=1.030 1.016-1.022 Urine Protein NEGATIVE NEGATIVE Urine Glucose (UA) NEGATIVE NEGATIVE Urine Ketones NEGATIVE NEGATIVE Urine Nitrite NEGATIVE NEGATIVE Urine Bilirubin NEGATIVE NEGATIVE Urine Urobilinogen 0.2 < = 1.0 MG/DL Urine Leukocyte Esterase NEGATIVE NEGATIVE Urine RBC (Auto) TRACE-I H NEGATIVE Urine RBC RARE /HPF Urine WBC RARE /HPF Urine Squamous Epithelial Cells 2-5 /HPF Urine Crystals NONE /LPF Urine Bacteria FEW H /HPF Urine Casts NONE /LPF Urine Mucus NEGATIVE /LPF Urine Culture Indicated NO White Blood Count 5.7 4.3-11.0 10^3/uL Red Blood Count 4.34 3.80-5.11 10^6/uL Hemoglobin 12.7 11.5-16.0 g/dL Hematocrit 37 35-52 % Mean Corpuscular Volume 86 80-99 fL Mean Corpuscular Hemoglobin 29 25-34 pg Mean Corpuscular Hemoglobin Concent 34 32-36 g/dL Red Cell Distribution Width 14.1 10.0-14.5 % Platelet Count 253 130-400 10^3/uL Mean Platelet Volume 9.6 9.0-12.2 fL Immature Granulocyte % (Auto) 0 % Neutrophils (%) (Auto) 56 42-75 % Lymphocytes (%) (Auto) 34 12-44 % Monocytes (%) (Auto) 8 0-12 % Eosinophils (%) (Auto) 1 0-10 % Basophils (%) (Auto) 1 0-10 % Neutrophils # (Auto) 3.2 1.8-7.8 10^3/uL Lymphocytes # (Auto) 1.9 1.0-4.0 10^3/uL Monocytes # (Auto) 0.5 0.0-1.0 10^3/uL Eosinophils # (Auto) 0.1 0.0-0.3 10^3/uL Basophils # (Auto) 0.0 0.0-0.1 10^3/uL Immature Granulocyte # (Auto) 0.0 0.0-0.1 10^3/uL Sodium Level 141 135-145 MMOL/L Potassium Level 4.0 3.6-5.0 MMOL/L Chloride Level 108 H 98-107 MMOL/L Carbon Dioxide Level 24 21-32 MMOL/L Anion Gap 9 5-14 MMOL/L Blood Urea Nitrogen 12 7-18 MG/DL Creatinine 0.74 0.60-1.30 MG/DL Estimat Glomerular Filtration Rate 117 BUN/Creatinine Ratio 16 Glucose Level 79 70-105 MG/DL Calcium Level 9.5 8.5-10.1 MG/DL Corrected Calcium 9.2 8.5-10.1 MG/DL Magnesium Level 2.2 1.6-2.4 MG/DL Total Bilirubin 0.9 0.1-1.0 MG/DL Aspartate Amino Transf (AST/SGOT) 14 5-34 U/L Alanine Aminotransferase (ALT/SGPT) 10 0-55 U/L Alkaline Phosphatase 54 40-136 U/L C-Reactive Protein High Sensitivity 0.03 0.00-0.50 MG/DL Total Protein 6.9 6.4-8.2 GM/DL Albumin 4.4 3.2-4.5 GM/DL Thyroid Stimulating Hormone (TSH) 0.98 0.35-4.94 UIU/ML Serum Test, Qualitative NEGATIVE NEGATIVE My Orders Orders - ALBA RUBIO APRN Ua Culture If Indicated (06/10/22 18:08) Urine Bedside (06/10/22 18:08) Ed Iv/Invasive Line Start (06/10/22 18:42) Ns Iv 1000 Ml (Sodium Chloride 0.9%) (06/10/22 18:45) Cbc With Automated Diff (06/10/22 18:42) Comprehensive Metabolic Panel (06/10/22 18:42) Hcg,Qualitative Serum (06/10/22 18:42) Magnesium (06/10/22 18:42) Thyroid Stimulating Hormone (06/10/22 18:42) Ekg Tracing (06/10/22 18:42) Wet Prep (06/10/22 19:08) Neisseria Gonorrhea Swab (06/10/22 19:08) Chlamydia Trachomatis Swab (06/10/22 19:08) Hs C Reactive Protein (06/10/22 18:49) Vital Signs/I&O 06/10/22 18:10 Temp 36.5 Pulse 71 Resp 16 B/P (MAP) 106/69 (81) Pulse Ox 99 Capillary Refill : Less Than 3 Seconds Blood Pressure Mean: 81 Progress Note : Progress Note Patient seen and evaluated, resting comfortably in bed, no acute distress. Based on exam and symptoms, work-up initiated including CBC, CMP, UA, urine , hCG qualitative, magnesium, TSH, EKG. IV fluids ordered. ECG Initial ECG Impression Date: June 10, 2022 Initial ECG Impression Time: 18:58 Initial ECG Rate: 57 Initial ECG Rhythm: S.Luis Initial ECG Intervals: Normal Initial ECG Impression: Normal Initial ECG Comparisson: Unchanged Departure Impression Primary Impression: Vaginal bleeding Disposition: 01 HOME, SELF-CARE Condition: Stable Departure-Patient Inst. Decision time for Depature: 20:51 Referrals: DEVIN COUGHLIN MD (PCP/Family) Primary Care Physician Patient Instructions: Absent or Irregular Periods Add. Discharge Instructions: Follow-up with Dr. Crowder or OB. Return for worsening bleeding, dizziness, syncope, chest pain, shortness of air, or any other new, concerning, or worsening symptoms. All discharge instructions reviewed with patient and/or family. Voiced understanding. ALBA RUBIO APRN June 10, 2022 19:01
[2022-06-10 19:14] LABS: ALBUMIN 4.4 GM/DL (3.2-4.5)
[2022-06-10 19:16] LABS: CALCIUM 9.5 MG/DL (8.5-10.1)
[2022-06-10 19:17] LABS: TOTAL PROTEIN 6.9 GM/DL (6.4-8.2)
[2022-06-10 19:19] LABS: BILIRUBIN,TOTAL 0.9 MG/DL (0.1-1.0)
[2022-06-10 19:21] LABS: CREATININE SERUM 0.74 MG/DL (0.60-1.30)
[2022-06-10 19:23] LABS: MAGNESIUM 2.2 MG/DL (1.6-2.4)
== END 2022-06-10 21:06 | disposition home or self-care (01) ==
LOC: EDUNIT# 18:06 → ER 18:09
DX: N93.9 Abnormal uterine and vaginal bleeding, unspecified (principal); F17.290 Nicotine dependence, other tobacco product, uncomplicated; Z87.42 Personal history of other diseases of the female genital tract; Z90.49 Acquired absence of other specified parts of digestive tract; Z98.890 Other specified postprocedural states
CPT/HCPCS: 36415; 80053; 81000; 83735; 84443; 84703; 85025; 86141; 87210; 87491; 87591; 93005

== ENCOUNTER 2022-09-08 16:15 | Emergency (ER) | payer MEDICAID ==
[2022-09-08] MEDS ORDERED: LACTATED RINGERS 1,000 ML IV ONE (16:45)
[2022-09-08] MEDS ORDERED: ONDANSETRON 4 MG/2 ML (SDV) Z0FRAN IVP ONE (16:45)
--- NOTE | 2022-09-08 16:46 | ED GI ---
General Chief Complaint: Dizziness/Syncope Stated Complaint: NO APPETITE/ FAINTING Nursing Triage Note: PT AMB TO FT WITH C/O NOT HAVING AN APPETITE, NOT BEING ABLE TO EAT, FEELING NAUSOUS AND VOMITTING WHILE EATING. PT STATES SHE HAS BEEN DEALING WITH IT FOR A LONG TIME Source of Information: Patient Exam Limitations: No Limitations (ROCHELLE MARC APRN) History of Present Illness Date Seen by Provider: Sep 08, 2022 Time Seen by Provider: 16:34 Initial Comments 22-year-old female presents to the ER with reports of 2 years of difficulty eating, states that it started after having her gallbladder was removed. She states that she has no appetite, and when she does eat she becomes sick to her stomach and she vomits. States that last night was worse than normal. She reports she has been losing weight. She also reports that she has been passing out every time after she gets sick. She states that movement makes symptoms worse. She complains of abdominal pain, describes it as her abdomen is churning. She states that last night she was having left lower quadrant abdominal pain. States that her last bowel movement was this morning, states that it was soft. Reports her last menstrual cycle was August 28. She denies fevers, vaginal bleeding or discharge, dysuria. (ROCHELLE MARC APRN) Allergies and Home Medications Allergies Coded Allergies: Cephalosporins (Verified Allergy, Unknown, 03/15/21) sulfamethoxazole (Verified Allergy, Unknown, 06/10/22) trimethoprim (Verified Allergy, Unknown, 06/10/22) Patient Home Medication List Home Medication List Reviewed: Yes (ROCHELLE MARC APRN) Dicyclomine HCl (Dicyclomine HCl) 20 Mg Tablet, 20 MG PO ACHS Prescribed by: Rochelle Stallworth on 09/08/221828 Doxycycline Hyclate (Doxycycline Hyclate) 100 Mg Tablet, 100 MG PO BID Prescribed by: KYM LAWRENCE on 10/08/21 0006 Mirtazapine (Mirtazapine) 15 Mg Tablet, 15 MG PO DAILY, (Reported) Entered as Reported by: MITUL ABAD on 07/24/21 1233 Nitrofurantoin Monohyd/M-Cryst (Macrobid 100 mg Capsule) 100 Mg Capsule, 1 TAB PO BID Prescribed by: Rohcelle Stallworth on 09/08/221828 Olanzapine (Olanzapine) 10 Mg Tablet, (Reported) Entered as Reported by: ASHA CHANDLER on 06/19/212232 Ondansetron (Ondansetron Odt) 4 Mg Tab.rapdis, 4 MG PO Q6H PRN for NAUSEA/VOMITING Prescribed by: KYM LAWRENCE on 10/08/21 0006 Ondansetron (Ondansetron Odt) 4 Mg Tab.rapdis, 4 MG SL Q4H PRN for NAUSEA/VOMITING Prescribed by: Rochelle Stallworth on 09/08/221828 Pantoprazole Sodium (Protonix) 40 Mg Tablet.dr, 40 MG PO DAILY Prescribed by: MARTINE BAILEY on 07/25/21 1037 Review of Systems Review of Systems Constitutional: see HPI (ROCHELLE MARC APRN) Past Zbecvwa-Ppoesh-Bmjbfd Hx Patient Social History Tobacco Use?: No Use of E-Cig and/or Vaping dev: Yes Substance use?: No Alcohol Use?: No Pt feels they are or have been: No (ROCHELLE MARC APRN) Immunizations Up To Date Tetanus Booster (TDap): Less than 5yrs PED Vaccines UTD: No First/Initial COVID19 Vaccinat: N/A Second COVID19 Vaccination Camacho: N/A Third COVID19 Vaccination Date: N/A (ROCHELLE MARC APRN) Seasonal Allergies Seasonal Allergies: Yes (ROCHELLE MARC APRN) Past Medical History Surgery/Hospitalization HX: Factor 5, heart murmur, ovarian cysts, surgeries: gallbladder, hernia, knee, tonsils/adenoids, cyst removed from the ovary Surgeries: Yes (UMBILICAL HERNIA REPAIR WITH CHOLECYSTECTOMY; RIGHT OVARIAN CYST REMOVED) Abdominal, Adenoidectomy, Gallbladder, Tonsillectomy Respiratory: Yes Asthma Currently Using CPAP: No Currently Using BIPAP: No Cardiac: No Neurological: No Reproductive Disorders: Yes (CHRONIC PELVIC/RLQ PAIN ) Female Reproductive Disorders: Denies, Ovarian Cyst Sexually Transmitted Disease: No HIV/AIDS: No Genitourinary: Yes Bladder Infection, UTI-Chronic Gastrointestinal: Yes (CHRONIC PELVIC/RLQ PAIN; CHOLECYSTECTOMY W/ UMBILICAL HERNIA REPAIR;) Abdominal Hernia, Gall Bladder Disease Musculoskeletal: No Endocrine: No HEENT: No Cancer: No Psychosocial: Yes Eating Disorder, Anxiety, PTSD, Bipolar, Depression Integumentary: Yes (TATTOOS) 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) Adverse Reaction/Blood Tranf: No (ROCHELLE MARC APRN) Family Medical History BIPOLAR 19 FATHER Diabetes mellitus 19 FATHER FH: factor V Leiden mutation M GRANDMOTHER FH: heart disease GRANDPARENT FH: hyperlipidemia 19 MOTHER GRANDPARENT Factor V deficiency 19 MOTHER G8 BROTHER G8 BROTHER G8 BROTHER G8 SISTER G8 SISTER Hypertension 19 FATHER GRANDPARENT IBS 19 FATHER Seizure disorder 19 FATHER Tuberculosis 19 FATHER CHRONIC LOSS OF APPETITE, AND OFTEN DOES NOT EAT ALL DAY (ROCHELLE MARC APRN) Physical Exam Vital Signs Vital Signs - First Documented 09/08/22 16:22 Temp 36.8 Pulse 77 Resp 14 B/P (MAP) 118/74 (89) Pulse Ox 99 O2 Delivery Room Air (ELVI WALLER MD) Vital Signs Capillary Refill : (ROCHELLE MARC APRN) Height/Weight/BMI Height: 5'0" Weight: 105lbs. 0.0oz. 47.310870ll; 16.00 BMI Method:Stated General Appearance: WD/WN, no apparent distress, thin Neck: supple, normal inspection Respiratory: lungs clear, normal breath sounds, no respiratory distress, no accessory muscle use Cardiovascular: regular rate, rhythm Gastrointestinal: normal bowel sounds, soft, tenderness (Mild tenderness right upper and right lower quadrant) Extremities: normal range of motion, normal inspection Back: normal inspection Neurologic/Psychiatric: alert, normal mood/affect Skin: normal color, warm/dry (ROCHELLE MARC APRN) Progress/Results/Core Measures Results/Orders Lab Results Laboratory Tests Test 09/08/22 16:52 09/08/22 17:00 Range/Units Urine Color YELLOW Urine Clarity SL CLOUDY Urine pH 6.0 5-9 Urine Specific [place] >=1.030 1.016-1.022 Urine Protein 1+ H NEGATIVE Urine Glucose (UA) NEGATIVE NEGATIVE Urine Ketones 1+ H NEGATIVE Urine Nitrite NEGATIVE NEGATIVE Urine Bilirubin 1+ H NEGATIVE Urine Urobilinogen 0.2 < = 1.0 MG/DL Urine Leukocyte Esterase 1+ H NEGATIVE Urine RBC (Auto) TRACE-L H NEGATIVE Urine RBC RARE /HPF Urine WBC 5-10 H /HPF Urine Squamous Epithelial Cells 2-5 /HPF Urine Crystals NONE /LPF Urine Bacteria FEW H /HPF Urine Casts NONE /LPF Urine Mucus MODERATE H /LPF Urine Culture Indicated YES White Blood Count 7.5 4.3-11.0 10^3/uL Red Blood Count 4.57 3.80-5.11 10^6/uL Hemoglobin 13.8 11.5-16.0 g/dL Hematocrit 40 35-52 % Mean Corpuscular Volume 88 80-99 fL Mean Corpuscular Hemoglobin 30 25-34 pg Mean Corpuscular Hemoglobin Concent 34 32-36 g/dL Red Cell Distribution Width 13.2 10.0-14.5 % Platelet Count 284 130-400 10^3/uL Mean Platelet Volume 9.1 9.0-12.2 fL Immature Granulocyte % (Auto) 0 % Neutrophils (%) (Auto) 70 42-75 % Lymphocytes (%) (Auto) 23 12-44 % Monocytes (%) (Auto) 6 0-12 % Eosinophils (%) (Auto) 0 0-10 % Basophils (%) (Auto) 0 0-10 % Neutrophils # (Auto) 5.3 1.8-7.8 10^3/uL Lymphocytes # (Auto) 1.7 1.0-4.0 10^3/uL Monocytes # (Auto) 0.4 0.0-1.0 10^3/uL Eosinophils # (Auto) 0.0 0.0-0.3 10^3/uL Basophils # (Auto) 0.0 0.0-0.1 10^3/uL Immature Granulocyte # (Auto) 0.0 0.0-0.1 10^3/uL Sodium Level 139 135-145 MMOL/L Potassium Level 3.7 3.6-5.0 MMOL/L Chloride Level 106 98-107 MMOL/L Carbon Dioxide Level 23 21-32 MMOL/L Anion Gap 10 5-14 MMOL/L Blood Urea Nitrogen 13 7-18 MG/DL Creatinine 0.77 0.60-1.30 MG/DL Estimat Glomerular Filtration Rate 112 BUN/Creatinine Ratio 17 Glucose Level 81 70-105 MG/DL Calcium Level 9.7 8.5-10.1 MG/DL Corrected Calcium 8.5-10.1 MG/DL Total Bilirubin 0.9 0.1-1.0 MG/DL Aspartate Amino Transf (AST/SGOT) 16 5-34 U/L Alanine Aminotransferase (ALT/SGPT) 12 0-55 U/L Alkaline Phosphatase 53 40-136 U/L Total Protein 7.3 6.4-8.2 GM/DL Albumin 4.7 H 3.2-4.5 GM/DL Lipase 7 L 8-78 U/L (ELVI WALLER MD) Vital Signs/I&O 09/08/22 09/08/22 16:22 18:35 Temp 36.8 Pulse 77 75 Resp 14 14 B/P (MAP) 118/74 (89) 112/73 Pulse Ox 99 98 O2 Delivery Room Air Room Air 09/09/22 00:00 Intake Total 59 ml Balance 59 ml (ELVI WALLER MD) Blood Pressure Mean: 89 Progress Progress Note : Progress Note Patient seen and evaluated, resting comfortably in bed, no acute distress. Based on exam and symptoms, work-up initiated including CBC, CMP, lipase, UA, urine , CT abdomen pelvis. IV fluids, Toradol, and Zofran ordered. [address] reviewed. CBC grossly normal. CMP grossly normal. Lipase normal. Urinalysis shows 1+ protein, 1+ ketones, 1+ bilirubin, 1+ leukocytes, trace RBCs, 5-10 WBCs, few bacteria. CT abdomen pelvis shows no acute abnormality. Will treat for UTI. This is likely not the cause of her symptoms. At this time I do not see a cause for her symptoms. Patient is stable, labs are normal. She does not appear dehydrated or malnourished, though she is thin. I believe she is safe to be discharged at this time. Patient instructed to follow-up with primary care provider. Will discharge with Bentyl and Zofran for symptoms. Results discussed with patient. Discharge instructions and return precautions provided. (ROCHELLE MARC APRN) Departure Impression Primary Impression: Abdominal pain Qualified Codes: R10.84 - Generalized abdominal pain Additional Impressions: Nausea & vomiting Qualified Codes: R11.2 - Nausea with vomiting, unspecified UTI (urinary tract infection) Qualified Codes: N30.01 - Acute cystitis with hematuria Disposition: HOME, SELF-CARE Condition: Stable Departure-Patient Inst. Decision time for Depature: 18:26 (ROCHELLE MARC APRN) Referrals: NO,LOCAL PHYSICIAN (PCP/Family) Primary Care Physician Patient Instructions: Nausea and Vomiting, Adult Add. Discharge Instructions: Follow-up with primary care provider. Take Bentyl before meals and at bedtime to help with abdominal cramping. Take Zofran as needed for nausea. Complete full course of antibiotic as prescribed. Return for any new, concerning, or worsening symptoms. All discharge instructions reviewed with patient and/or family. Voiced understanding. Scripts Ondansetron (Ondansetron Odt) 4 Mg Tab.rapdis 4 MG SL Q4H PRN for NAUSEA/VOMITING, #20 TAB 0 Refills Prov: ROCHELLE MARC APRN 09/08/22 Dicyclomine HCl (Dicyclomine HCl) 20 Mg Tablet 20 MG PO ACHS for 14 Days, #56 TAB 0 Refills Prov: ROCHELLE MARC APRN 09/08/22 Nitrofurantoin Monohyd/M-Cryst (Macrobid 100 mg Capsule) 100 Mg Capsule 1 TAB PO BID for 5 Days, #9 CAP 0 Refills Prov: ROCHELLE MARC APRN 09/08/22 ATTENDING PHYSICIAN NOTE: I was physically present as attending physician in the emergency department during the care of this patient, but I was not directly involved in the decision making or delivery of care for this patient. (ELVI WALLER MD) ROCHELLE MARC APRN Sep 08, 2022 16:46 ELVI WALLER MD Sep 09, 2022 07:15
[2022-09-08 16:58] LABS: CLARITY,URINE SL CLOUDY; COLOR,URINE YELLOW; GLUCOSE, URINE (UA) NEGATIVE (NEGATIVE); KETONES,URINE 1+ (NEGATIVE); LEUKOCYTE ESTERASE ,URINE 1+ (NEGATIVE); NITRITE,URINE NEGATIVE (NEGATIVE); PROTEIN,URINE 1+ (NEGATIVE)
[2022-09-08] MEDS ORDERED: HOLD METFORMIN - RECEIVED CONTRAST 20 ML VIAL IV SCH (17:00)
[2022-09-08] MEDS ORDERED: IOHEXOL 350 MG/ML 100 ML (OMNIPAQUE 350) VIAL IV ONE (17:00)
[2022-09-08] MEDS ORDERED: NS 100 ML (IVPB) BAG IV ONE (17:00)
[2022-09-08 17:07] LABS: BACTERIA,URINE FEW /HPF; BILIRUBIN,URINE 1+ (NEGATIVE); RBC,URINE RARE /HPF
[2022-09-08] MEDS ORDERED: KETOROLAC 15 MG/ML VIAL IVP ONE (17:15)
[2022-09-08 17:20] LABS: BASOPHILS % (AUTO) 0 % (0-10); EOSINOPHILS % (AUTO) 0 % (0-10); HEMATOCRIT 40 % (35-52); HEMOGLOBIN 13.8 g/dL (11.5-16.0); LYMPHOCYTES # (AUTO) 1.7 10^3/uL (1.0-4.0); LYMPHOCYTES % (AUTO) 23 % (12-44); MEAN CORPUSCULAR HEMOGLOBIN 30 pg (25-34); MEAN CORPUSCULAR HGB CONC 34 g/dL (32-36); MEAN CORPUSCULAR VOLUME 88 fL (80-99); MEAN PLATELET VOLUME 9.1 fL (9.0-12.2); MONOCYTES # (AUTO) 0.4 10^3/uL (0.0-1.0); MONOCYTES % (AUTO) 6 % (0-12); NEUTROPHILS # (AUTO) 5.3 10^3/uL (1.8-7.8); NEUTROPHILS % (AUTO) 70 % (42-75); PLATELET COUNT 284 10^3/uL (130-400); WHITE BLOOD COUNT 7.5 10^3/uL (4.3-11.0)
[2022-09-08 17:40] LABS: ALBUMIN 4.7 GM/DL (3.2-4.5)
[2022-09-08 17:41] LABS: CHLORIDE 106 MMOL/L (98-107); POTASSIUM 3.7 MMOL/L (3.6-5.0); SODIUM 139 MMOL/L (135-145)
[2022-09-08 17:42] LABS: CALCIUM 9.7 MG/DL (8.5-10.1)
[2022-09-08 17:43] LABS: GLUCOSE 81 MG/DL (70-105); TOTAL PROTEIN 7.3 GM/DL (6.4-8.2)
[2022-09-08 17:44] LABS: CARBON DIOXIDE 23 MMOL/L (21-32)
[2022-09-08 17:45] LABS: BILIRUBIN,TOTAL 0.9 MG/DL (0.1-1.0)
[2022-09-08 17:47] LABS: ALKALINE PHOSPHATASE 53 U/L (40-136); CREATININE SERUM 0.77 MG/DL (0.60-1.30); GFR ESTIMATED 112
[2022-09-08 17:48] LABS: BUN/CREATININE RATIO 17
[2022-09-08 17:50] LABS: ALANINE AMINOTRANSFERASE 12 U/L (0-55); LIPASE 7 U/L (8-78)
--- NOTE | 2022-09-08 18:10 | Diagnostic Imaging Report ---
PROCEDURE: CT abdomen and pelvis with contrast. TECHNIQUE: Multiple contiguous axial images were obtained through the abdomen and pelvis after administration of intravenous contrast. Auto Exposure Controls were utilized during the CT exam to meet ALARA standards for radiation dose reduction. All CT scans use one or more of the following dose optimizing techniques: automated exposure control, MA and/or KvP adjustment based on patient size and exam type or iterative reconstruction. INDICATION: Nausea and vomiting, abdominal pain COMPARISON: 06/09/2020 FINDINGS: Lung bases are clear. The heart is normal in size. The liver demonstrates mild fatty infiltration along the falciform ligament. Cholecystectomy clips are noted. The spleen appears normal. The pancreas is normal. The right adrenal gland appears normal. The left is difficult to evaluate but appears to be normal with no nodule seen. The kidneys demonstrate no enhancing lesions and no hydronephrosis. Bowel loops are nondistended without obstruction seen. There is a paucity of mesenteric fat to evaluate structures. The appendix is not definitively seen but no secondary findings of appendicitis are appreciated. There are multiple follicles in the ovaries bilaterally. No free fluid or free air is seen. The aorta is normal in caliber. No lymphadenopathy is seen. The uterus is retroflexed but no masses seen. No acute osseous abnormality is identified. IMPRESSION: 1. No acute abnormality is seen in the abdomen or pelvis. Dictated by: Dictated on workstation # [id number]
[2022-09-08] MEDS ORDERED: ONDA4TAB11 SL (18:29)
[2022-09-08] MEDS ORDERED: NITR-65 PO (18:29)
[2022-09-08] MEDS ORDERED: DICY20TA PO (18:29)
[2022-09-08] MEDS ORDERED: NITROFURANTOIN 100 MG (MACROBID) CAPSULE PO ONE (18:30)
[2022-09-08 18:35] VITALS: BP 112/73
== END 2022-09-08 18:35 | disposition home or self-care (01) ==
LOC: EDUNIT# 16:15 → ER 16:18
DX: N39.0 Urinary tract infection, site not specified (principal); R11.2 Nausea with vomiting, unspecified; Z87.19 Personal history of other diseases of the digestive system; Z90.49 Acquired absence of other specified parts of digestive tract; Z98.890 Other specified postprocedural states; Z28.310 Unvaccinated for COVID-19; Z88.2 Allergy status to sulfonamides; Z88.1 Allergy status to other antibiotic agents
CPT/HCPCS: 36415; 74177; 80053; 81000; 83690; 84703; 85025; 87088